=== PATIENT | male | born 1980 | race Caucasian/White ===

== ENCOUNTER 2019-06-03 15:58 | Inpatient (IN) | payer SELFPAY ==
[~2019-06-03] VITALS: Ht 193 cm; Wt 79.4 kg
[~2019-06-03 15:58] MED LIST: ASP81TEC PO; IBP600T1 PO; MINO50CA2 PO; OMG1KC PO; PNT40TEC PO; SERT25TA PO; SULF1TAB38 PO; TRAM50TA2 PO
--- NOTE | 2019-06-03 16:33 | NUR ---
first call to bring patient back at this time. pt not in waiting room.
[2019-06-03 16:56] LABS: BASOPHILS # (AUTO) 0.1 10^3/uL (0.0-0.1); BASOPHILS % (AUTO) 1 % (0-10); EOSINOPHILS # (AUTO) 0.1 10^3/uL (0.0-0.3); EOSINOPHILS % (AUTO) 1 % (0-10); HEMATOCRIT 47 % (40-54); HEMOGLOBIN 16.8 G/DL (13.3-17.7); LYMPHOCYTES # (AUTO) 1.3 X 10^3 (1.0-4.0); LYMPHOCYTES % (AUTO) 15 % (12-44); MEAN CORPUSCULAR HEMOGLOBIN 30 PG (25-34); MEAN CORPUSCULAR HGB CONC 36 G/DL (32-36); MEAN CORPUSCULAR VOLUME 83 FL (80-99); MEAN PLATELET VOLUME 13.9 FL (7.4-10.4); MONOCYTES # (AUTO) 0.5 X 10^3 (0.0-1.0); MONOCYTES % (AUTO) 5 % (0-12); NEUTROPHILS # (AUTO) 6.8 X 10^3 (1.8-7.8); NEUTROPHILS % (AUTO) 78 % (42-75); PLATELET COUNT 221 10^3/uL (130-400); RED CELL DISTRIBUTION WIDTH 12.9 % (10.0-14.5); WHITE BLOOD COUNT 8.7 10^3/uL (4.3-11.0)
[2019-06-03 17:13] LABS: ALANINE AMINOTRANSFERASE 25 U/L (0-55); ALBUMIN 4.7 GM/DL (3.2-4.5); ALKALINE PHOSPHATASE 128 U/L (40-136); BILIRUBIN,TOTAL 0.8 MG/DL (0.1-1.0); BUN/CREATININE RATIO 7; CALCIUM 9.9 MG/DL (8.5-10.1); CARBON DIOXIDE 24 MMOL/L (21-32); CHLORIDE 81 MMOL/L (98-107); CREATININE SERUM 1.64 MG/DL (0.60-1.30); GFR ESTIMATED 48; POTASSIUM 4.6 MMOL/L (3.6-5.0); TOTAL PROTEIN 8.2 GM/DL (6.4-8.2)
[2019-06-03 17:30] LABS: SODIUM 119 MMOL/L (135-145)
--- NOTE | 2019-06-03 17:30 | ED General ---
General Chief Complaint: Glucose Problems Stated Complaint: DIABETIC ISSUES Nursing Triage Note: bisi had his diabetic medication in 2 weeks bc he just moved here and his sugars are all out of wack and "he can't function". His vision is blurry, he is nauseated, and losing weight rapidly. Pt is currently homeless Nursing Sepsis Screen: No Definite Risk Source of Information: Patient Exam Limitations: No Limitations History of Present Illness Date Seen by Provider: Jun 03, 2019 Time Seen by Provider: 17:27 Initial Comments This 39-year-old white male presents with a need for his diabetic medication. Patient is homeless and has been out of his Levemir and his metformin for 2 weeks. Patient states that he has had elevated blood sugars. Reports blurry vision and rapid weight loss associated nausea. Allergies and Home Medications Allergies Uncoded Allergies: BEE STING (Allergy, 07/29/13) Home Medications Aspirin 81 Mg Tabec, 81 MG PO DAILY, (Reported) Minocycline Hcl 50 Mg Capsule, 100 MG PO BID Prescribed by: MORGAN GARZA on 11/23/13 1448 [place] 3 Polyunsat Fatty Acids 1,000 Mg Cap, 3,000 MG PO DAILY, (Reported) Tramadol Hcl 50 Mg Tablet, 50 MG PO Q4H PRN for PAIN Prescribed by: MORGAN GARZA on 11/23/13 1448 Trimethoprim/Sulfamethoxazole 1 Ea Tablet, 1 EA PO BID FOR INFECTION Prescribed by: MORGAN GARZA on 11/23/13 1448 Patient Home Medication List Home Medication List Reviewed: Yes Review of Systems Review of Systems Constitutional: No chills, No fever; malaise, weight loss EENTM: blurred vision Respiratory: No cough, No short of breath Cardiovascular: No chest pain Gastrointestinal: No diarrhea; nausea Genitourinary: No dysuria, No frequency Musculoskeletal: No back pain Skin: No change in color, No rash Psychiatric/Neurological: Other (homeless) Hematologic/Lymphatic: No Symptoms Reported Immunological/Allergic: no symptoms reported Past Fwyxhdd-Ppjkit-Tnwrbi Hx Past Med/Social Hx: Reviewed Nursing Past Med/Soc Hx Patient Social History Alcohol Use: Denies Use Recreational Drug Use: No Smoking Status: Current Everyday Smoker Recent Foreign Travel: No Contact w/Someone Who Travel: No Recent Infectious Disease Expo: Yes Recent Hopitalizations: No Immunizations Up To Date Tetanus Booster (TDap): Less than 5yrs PED Vaccines UTD: Yes Date of Influenza Vaccine: Jul 27, 2013 Past Medical History Surgeries: Yes (ear tubes as a child) Respiratory: Yes (pneumonitis as a baby) Cardiac: Yes (elevated troponin with clean cath) Neurological: Yes Reproductive Disorders: No Gastrointestinal: No Musculoskeletal: Yes (fractured elbow) Fractures Endocrine: No Chronic Ear Infection Loss of Vision: Denies Hearing Impairment: Denies Cancer: No Psychosocial: Yes (OCD) Anxiety Integumentary: Yes (history of multiple abscesses of the lower abdomen) Blood Disorders: No Family Medical History No Pertinent Family Hx Physical Exam Vital Signs Vital Signs - First Documented 06/03/19 16:03 Temp 96.4 Pulse 99 Resp 16 B/P (MAP) 130/92 (105) O2 Delivery Room Air Capillary Refill : Less Than 3 Seconds Height, Weight, BMI Height: 6'4.00" Weight: 175lbs. 0.1oz. 79.098950bs; 27.38 BMI Method:Stated General Appearance: No Apparent Distress, Thin HEENT: Normal ENT Inspection Neck: Normal Inspection Respiratory: Lungs Clear Cardiovascular: Regular Rate, Rhythm Gastrointestinal: Normal Bowel Sounds Back: Normal Inspection Extremity: Normal Inspection, Normal Range of Motion, Non Tender Neurologic/Psychiatric: Alert, Oriented x3, No Motor/Sensory Deficits, Normal Mood/Affect Skin: Normal Color, Warm/Dry Progress/Results/Core Measures Suspected Sepsis Recent Fever Within 48 Hours: No Infection Criteria Present: None New/Unexplained Altered Menta: No Sepsis Screen: No Definite Risk SIRS Temperature:96.4 Pulse: 99 Respiratory Rate: 16 Laboratory Tests 06/03/19 16:45: White Blood Count 8.7 Blood Pressure 130 /92 Mean: 105 Laboratory Tests 06/03/19 16:45: Creatinine 1.64H, Platelet Count 221, Total Bilirubin 0.8 Results/Orders Lab Results Laboratory Tests Test 06/03/19 16:42 06/03/19 16:45 06/03/19 17:34 Range/Units Glucometer > 600 *H > 600 *H 70-110 MG/DL White Blood Count 8.7 4.3-11.0 10^3/uL Red Blood Count 5.64 4.35-5.85 10^6/uL Hemoglobin 16.8 13.3-17.7 G/DL Hematocrit 47 40-54 % Mean Corpuscular Volume 83 80-99 FL Mean Corpuscular Hemoglobin 30 25-34 PG Mean Corpuscular Hemoglobin Concent 36 32-36 G/DL Red Cell Distribution Width 12.9 10.0-14.5 % Platelet Count 221 130-400 10^3/uL Mean Platelet Volume 13.9 H 7.4-10.4 FL Neutrophils (%) (Auto) 78 H 42-75 % Lymphocytes (%) (Auto) 15 12-44 % Monocytes (%) (Auto) 5 0-12 % Eosinophils (%) (Auto) 1 0-10 % Basophils (%) (Auto) 1 0-10 % Neutrophils # (Auto) 6.8 1.8-7.8 X 10^3 Lymphocytes # (Auto) 1.3 1.0-4.0 X 10^3 Monocytes # (Auto) 0.5 0.0-1.0 X 10^3 Eosinophils # (Auto) 0.1 0.0-0.3 10^3/uL Basophils # (Auto) 0.1 0.0-0.1 10^3/uL Sodium Level 119 *L 135-145 MMOL/L Potassium Level 4.6 3.6-5.0 MMOL/L Chloride Level 81 L 98-107 MMOL/L Carbon Dioxide Level 24 21-32 MMOL/L Anion Gap 14 5-14 MMOL/L Blood Urea Nitrogen 12 7-18 MG/DL Creatinine 1.64 H 0.60-1.30 MG/DL Estimat Glomerular Filtration Rate 48 BUN/Creatinine Ratio 7 Glucose Level 1112 *H 70-105 MG/DL Calcium Level 9.9 8.5-10.1 MG/DL Corrected Calcium 8.5-10.1 MG/DL Total Bilirubin 0.8 0.1-1.0 MG/DL Aspartate Amino Transf (AST/SGOT) 15 5-34 U/L Alanine Aminotransferase (ALT/SGPT) 25 0-55 U/L Alkaline Phosphatase 128 40-136 U/L Total Protein 8.2 6.4-8.2 GM/DL Albumin 4.7 H 3.2-4.5 GM/DL My Orders Orders - SAM MCARTHUR MD Iv Heplock-Insert (Order) (06/03/19 16:17) Cbc With Automated Diff (06/03/19 16:17) Comprehensive Metabolic Panel (06/03/19 16:17) Glucose (06/03/19 16:17) Ns Iv 1000 Ml (Sodium Chloride 0.9%) (06/03/19 17:45) Insulin (Regular) Human (Humulin R (Per (06/03/19 17:45) Arterial Blood Gas (06/03/19 17:44) Vital Signs/I&O 06/03/19 16:03 Temp 96.4 Pulse 99 Resp 16 B/P (MAP) 130/92 (105) O2 Delivery Room Air Capillary Refill : Less Than 3 Seconds Blood Pressure Mean: 105 Progress Note : Time: 17:48 Progress Note The patient's glucose was greater than thousand. His sodium was 119. His potassium was normal. Patient was placed on a insulin drip and was sent to the ICU after telephone consultation with Dr. Lewis. Departure Communication (Admissions) Time/Spoke to Admitting Phy: 17:50 Dr. Lewis Impression Primary Impression: Diabetic ketoacidosis Qualified Codes: E13.10 - Other specified diabetes mellitus with ketoacidosis without coma Disposition: ADMITTED INPATIENT Condition: Improved Admissions Decision to Admit Reason: Admit from ER (General) Decision to Admit/Date: Jun 03, 2019 Time/Decision to Admit Time: 17:50 Departure-Patient Inst. Referrals: [facility] (PCP/Family) Primary Care Physician SAM MCARTHUR MD Jun 03, 2019 17:30
[2019-06-03 17:39] LABS: GLUCOSE 1112 MG/DL (70-105)
[2019-06-03] MEDS ORDERED: inSUlin (REGULAR) HUMAN 1 UNIT/0.01 ML (CHARGE PER UNIT) SC ONE (17:45)
[2019-06-03] MEDS: NS IV 1000 ML 1,000 ML IV SCH ×2 (17:50→19:56)
--- NOTE | 2019-06-03 17:50 | NUR ---
RT called to room for ABG draw, pt refusing at this time Dr Wood informed of pt refusal and no further orders received.
--- NOTE | 2019-06-03 17:53 | NUR ---
PT DRANK SPRITE WITHOUT NURSING KNOWLEDGE.
--- NOTE | 2019-06-03 17:54 | NUR ---
PT REFUSED ABG DRAW.
[2019-06-03 18:36] VITALS: BP 130/92
[2019-06-03] MEDS ORDERED: ONDANSETRON 4 MG/2 ML (SDV) Z0FRAN IVP PRN (19:15)
[2019-06-03] MEDS ORDERED: ACETAMINOPHEN 325 MG TABLET PO PRN (19:15)
[2019-06-03] MEDS ORDERED: NS IV 1000 ML 1,000 ML IV SCH ×2 (19:15→20:00)
[2019-06-03] MEDS ORDERED: NORMAL SALINE 250 ML ONE (19:28)
[2019-06-03] MEDS ORDERED: inSUlin (REGULAR) HUMAN 1 UNIT/0.01 ML (CHARGE PER UNIT) ONE (19:29)
[2019-06-03] MEDS ORDERED: POTASSIUM CL 10MEQ/50ML IVPB X 4 (TOTAL 40 MEQ) IV SCH (19:30)
[2019-06-03] MEDS ORDERED: POTASSIUM CL 10MEQ/50ML IVPB 50 ML IV SCH (19:30)
[2019-06-03] MEDS ORDERED: DEXTROSE 10% IV SOLUTION 1,000 ML IV SCH (19:30)
[2019-06-03] MEDS ORDERED: 1/2 NS IV SOLUTION 1,000 ML IV SCH (19:30)
[2019-06-03] MEDS ORDERED: REGULAR inSUlin DRIP 250 UNITS/NS 250 ML IV SCH ×2 (19:30)
[2019-06-03] MEDS ORDERED: NS IV 1000 ML X 1 WIDE OPEN IV ONE (19:30)
[2019-06-03] MEDS ORDERED: D5 1/2 NS IV 1,000 ML IV SCH (19:30)
[2019-06-03 19:38] LABS: HEMOGLOBIN 16.3 G/DL (13.3-17.7); MEAN PLATELET VOLUME 13.5 FL (7.4-10.4); RED CELL DISTRIBUTION WIDTH 12.6 % (10.0-14.5); WHITE BLOOD COUNT 8.2 10^3/uL (4.3-11.0)
--- NOTE | 2019-06-03 20:00 | NUR ---
pt wanting to leave AMA at this time. This RN and Justyna RN explained the benefits and risk of staying vs. leaving. Pt adamant on leaving. AMA paperwork signed. IV x2 taken out, cath tips x2 in place. Dr. Lewis notified. Pt gathered belonging and exited ICU at 2014
--- OUTSIDE RECORDS SUMMARY | 2019-06-04 00:45 | XMS REPORT ---
Author Author BILL FLYNN [facility] Address [address] [place] [address] Care Team Providers Care Instrument Adjuster Name Role Phone BILL FLYNN Unavailable PROBLEMS Type Condition ICD9-CM Code CAM21-IW Code Onset Dates Condition Status SNOMED Code Problem Counseling on substance use and abuse V65.42 Active 221708840 Problem Family history of ischemic heart disease V17.3 Active 514702169 Problem Encounter for change or removal of surgical wound dressing V58.31 Active 34763786 Problem Unspecified voice disturbance 784.40 Active 68358671 Problem Other abnormal glucose 790.29 Active 292380138 Problem Pain in joint, pelvic region and thigh 719.45 Active 501597428 Problem Other malaise and fatigue 780.79 Active 647580132 Problem Depressive disorder, not elsewhere classified 311 Active 23133056 Problem Nondependent tobacco use disorder 305.1 Active 525938884 Problem Nondependent alcohol abuse, unspecified drunkenness 305.00 Active 039097282 Problem Mood disorder F39 Active 86397989 Problem Coronary atherosclerosis of unspecified type of vessel, [place] or graft 414.00 Active 609530096 Problem Uncontrolled type 2 diabetes mellitus with hyperglycemia E11.65 Active 505249247 Problem Cellulitis and abscess of unspecified site 682.9 Active 415239835 Problem Obsessive-compulsive disorders 300.3 Active 360128515 Problem Anxiety state, unspecified 300.00 Active 443778469 Problem Obesity, unspecified 278.00 Active 650078629 Problem Other and unspecified hyperlipidemia 272.4 Active 02277155 ALLERGIES No Information ENCOUNTERS Encounter Location Date Diagnosis [facility] [id number] [address] Jul, [facility] [address] [facility] [id number] [place] [address] Jul, [facility] [address] [address] 03 Jul, 2018 [facility] [id number] [place] [address] 28 Jun, 2018 Uncontrolled type 2 diabetes mellitus with hyperglycemia E11.65 [facility] [id number] [place] [address] 28 Jun, 2018 Uncontrolled type 2 diabetes mellitus with hyperglycemia E11.65 [facility] [id number] [place] [address] 27 Jun, 2018 [facility] [id number] [place] [id number] 25 Jun, 2018 Encounter for dental examination and cleaning without abnormal findings Z01.20 [facility] [id number] [place] [address] 18 Jun, 2018 [facility] [id number] [place] [address] 14 Jun, 2018 Uncontrolled type 2 diabetes mellitus with hyperglycemia E11.65 [facility] [id number] [place] [address] 18 Oct, 2017 [facility] [id number] [place] [address] 02 Oct, 2017 Mood disorder F39 [facility] [id number] [place] [id number] Sep, Dental examination Z01.20 [facility] [address] [address] Aug, Tooth infection K04.7 [facility] [id number] [place] [address] Aug, Mood disorder F39 [facility] [id number] [place] [address] May, Mood disorder F39 [facility] [address] [id number] 10 Oct, 2016 Mood disorder F39 [facility] [address] [id number] [place] [address] February, Chest pain, unspecified type R07.9 and MRSA (methicillin resistant staph aureus) culture positive Z22.322 [facility] [address] [id number] [place] [address] 14 Jan, 2015 [facility] [address] [id number] [place] [address] Jan, [facility] [address] [id number] [place] [address] Dec, [facility] [address] [id number] [place] [address] Dec, [facility] [address] [id number] [place] [address] Dec, [facility] [address] [id number] [place] [address] Dec, [facility] [address] [id number] [place] [address] May, [facility] [address] [id number] [place] [address] May, [facility] [address] [id number] [place] [address] Apr, [facility] [address] [id number] [place] [address] Dec, [facility] [address] [id number] [place] [address] Dec, [facility] [address] [id number] [place] [address] Dec, [facility] [address] [id number] [place] [address] Dec, [facility] [address] [id number] [place] [address] Dec, [facility] [place] [facility] [address] [id number] [place] [address] Dec, [facility] [place] [facility] [address] [id number] [place] [address] 24 Dec, 2013 [facility] [place] [facility] [address] [id number] [place] [address] 24 Dec, 2013 [facility] [place] [facility] [address] [id number] [place] [address] Dec, [facility] [place] [facility] [address] [id number] [place] [address] Dec, [facility] [place] [facility] [address] [id number] [place] [address] Dec, [facility] [place] [facility] [address] [facility] [id number] [place] [address] Dec, [facility] [place] [facility] [address] [id number] [place] [address] Dec, [facility] [place] [facility] [address] [id number] [place] [address] Dec, [facility] [place] [facility] [address] [id number] [place] [address] Nov, [facility] [place] [facility] [address] [id number] [place] [address] Nov, [facility] [place] [facility] [address] [id number] [place] [address] Nov, [facility] [place] [facility] [address] [id number] [place] [address] Nov, [facility] [place] [facility] [address] [id number] [place] [address] Nov, [facility] [place] [facility] [address] [id number] [place] [address] Nov, [facility] [place] [facility] [address] [id number] [place] [address] Oct, [facility] [address] [id number] [place] [address] Oct, [facility] [place] [facility] [address] [id number] [place] [address] Oct, [facility] [place] [facility] [address] [id number] [place] [address] Oct, [facility] [place] [facility] [address] [id number] [place] [address] Oct, [facility] [address] [id number] [place] [address] Oct, [facility] [place] [facility] [address] [id number] [place] [address] Sep, [facility] [address] [facility] [id number] [place] [address] Sep, [facility] [place] [facility] [address] [id number] [place] [address] Sep, [facility] [place] [facility] [address] [id number] [place] [address] Sep, [facility] [place] [facility] [address] [facility] [id number] [place] [address] Sep, [facility] [place] [facility] [address] [id number] [place] [address] Sep, [facility] [place] [facility] [address] [id number] [place] [address] Sep, [facility] [place] [facility] [address] [id number] [place] [address] Sep, [facility] [place] [facility] [address] [id number] [place] [address] Sep, [facility] [place] [facility] [address] [facility] [id number] [place] [address] Aug, [facility] [place] [facility] [address] [id number] [place] [address] 21 Aug, 2013 [facility] [place] [facility] [address] [id number] [place] [address] 18 Aug, 2013 [facility] [place] [facility] [address] [id number] [place] [address] 14 Aug, 2013 [facility] [place] [facility] [address] [id number] [place] [address] 14 Aug, 2013 [facility] [place] [facility] [address] [id number] [place] [address] 14 Aug, 2013 [facility] [place] [facility] [address] [id number] [place] [address] 14 Aug, 2013 [facility] [place] [facility] [address] [id number] [place] [address] 18 Jul, 2013 [facility] [place] [facility] [address] [id number] [place] [address] 18 Jul, 2013 [facility] [place] [facility] [address] [id number] [place] [address] 17 Jul, 2013 [facility] [place] [facility] [address] [id number] [place] [address] 17 Jul, 2013 [facility] [place] [facility] [address] [id number] [place] [address] 16 Jul, 2013 [facility] [place] [facility] [address] [id number] [place] [address] 26 Jun, 2013 [facility] [place] [facility] [address] [id number] [place] [address] 26 Jun, 2013 [facility] [place] [facility] [address] [id number] [place] [address] 25 Jun, 2013 [facility] [place] [facility] [address] [id number] [place] [address] 24 Jun, 2013 [facility] [place] [facility] [address] [id number] [place] [address] Apr, [facility] [address] [facility] [id number] [place] [address] Mar, [facility] [address] [facility] [id number] [place] [address] Mar, [facility] [address] [facility] [id number] [place] [address] Jan, IMMUNIZATIONS No Known Immunizations SOCIAL HISTORY Never Assessed REASON FOR VISIT PLAN OF CARE VITAL SIGNS MEDICATIONS Unknown Medications RESULTS No Results PROCEDURES No Known procedures INSTRUCTIONS MEDICATIONS ADMINISTERED No Known Medications MEDICAL (GENERAL) HISTORY Type Description Date Medical History heart attack 2014 Medical History history of infective endocarditis Medical History heart murmur Medical History idiopathic cardiomypathy Medical History Undergoing treatment for substance addiction Surgical History Heart cath at [facility] by Dr Barahona 2014
--- OUTSIDE RECORDS SUMMARY | 2019-06-04 00:45 | XMS REPORT ---
Author Author CHRISTIANNE CASTANEDA [facility] Address [address] [place] [address] Care Team Providers Care Family Manager Name Role Phone CHRISTIANNE CASTANEDA Unavailable PROBLEMS Type Condition ICD9-CM Code JKB28-IZ Code Onset Dates Condition Status SNOMED Code Problem Counseling on substance use and abuse V65.42 Active 781996763 Problem Family history of ischemic heart disease V17.3 Active 217514857 Problem Encounter for change or removal of surgical wound dressing V58.31 Active 60051292 Problem Unspecified voice disturbance 784.40 Active 14340244 Problem Other abnormal glucose 790.29 Active 313451150 Problem Pain in joint, pelvic region and thigh 719.45 Active 045000415 Problem Other malaise and fatigue 780.79 Active 882361981 Problem Depressive disorder, not elsewhere classified 311 Active 66411203 Problem Nondependent tobacco use disorder 305.1 Active 014442726 Problem Nondependent alcohol abuse, unspecified drunkenness 305.00 Active 994673355 Problem Mood disorder F39 Active 11997259 Problem Coronary atherosclerosis of unspecified type of vessel, [place] or graft 414.00 Active 960047613 Problem Uncontrolled type 2 diabetes mellitus with hyperglycemia E11.65 Active 048756882 Problem Cellulitis and abscess of unspecified site 682.9 Active 785091555 Problem Obsessive-compulsive disorders 300.3 Active 903938736 Problem Anxiety state, unspecified 300.00 Active 499585350 Problem Obesity, unspecified 278.00 Active 649025249 Problem Other and unspecified hyperlipidemia 272.4 Active 99440295 ALLERGIES No Information ENCOUNTERS Encounter Location Date Diagnosis [facility] [place] [address] [facility] [id number] [address] Jul, [facility] [place] [address] [facility] [id number] [address] Jul, [facility] [address] [address] 03 Jul, 2018 [facility], [place] [address] [place] [address] 28 Jun, 2018 Uncontrolled type 2 diabetes mellitus with hyperglycemia E11.65 [facility], [place] [address] [address] 28 Jun, 2018 Uncontrolled type 2 diabetes mellitus with hyperglycemia E11.65 [facility] [place] [address] [place] [address] 27 Jun, 2018 [facility] [id number] [place] [id number] 25 Jun, 2018 Encounter for dental examination and cleaning without abnormal findings Z01.20 [facility] [place] [address] [place] [address] 18 Jun, 2018 [facility] [place] [id number] [place] [address] 14 Jun, 2018 Uncontrolled type 2 diabetes mellitus with hyperglycemia E11.65 [facility] [place] [address] [address] 18 Oct, 2017 [facility] [place] [id number] [place] [address] 02 Oct, 2017 Mood disorder F39 [facility] [address] [id number] 15 Sep, 2017 Dental examination Z01.20 [facility], [place] [address] [address] Aug, Tooth infection K04.7 [facility], [place] [address] [place] [address] 07 Aug, 2017 Mood disorder F39 [facility], [place] [address] [address] May, Mood disorder F39 [facility] [address] [place] [id number] 10 Oct, 2016 Mood disorder F39 [facility], [place] [address] [id number] [place] [address] February, Chest pain, unspecified type R07.9 and MRSA (methicillin resistant staph aureus) culture positive Z22.322 [facility], [place] [address] [id number] [place] [address] 14 Jan, 2015 [facility] [place] [address] [id number] [place] [address] Jan, [facility] [place] [address] [id number] [place] [address] Dec, [facility] [place] [address] [id number] [place] [address] Dec, [facility] [place] [address] [id number] [place] [address] Dec, [facility] [place] [address] [id number] [place] [address] Dec, [facility] [place] [address] [id number] [place] [address] May, [facility], [place] [address] [id number] [place] [address] May, [facility] [place] [address] [id number] [place] [address] Apr, [facility], [place] [address] [id number] [place] [address] Dec, [facility] [place] [address] [id number] [place] [address] Dec, [facility] [place] [address] [id number] [place] [address] Dec, [facility] [place] [address] [id number] [place] [address] Dec, [facility] [place] [address] [id number] [place] [address] Dec, [facility] [place] [facility] [address] [id number] [place] [address] 25 Dec, 2013 [facility] [place] [facility] [address] [id number] [place] [address] 24 Dec, 2013 [facility] [place] [facility] [address] [id number] [place] [address] 24 Dec, 2013 [facility] [place] [facility] [address] [id number] [place] [address] Dec, [facility] [place] [facility] [address] [id number] [place] [address] 19 Dec, 2013 [facility] [place] [facility] [address] [id number] [place] [address] 14 Dec, 2013 [facility] [place] [facility] [address] [id number] [place] [address] 14 Dec, 2013 [facility] [place] [facility] [address] [id number] [place] [address] Dec, [facility] [place] [facility] [address] [id number] [place] [address] Dec, [facility] [place] [facility] [address] [id number] [place] [address] Nov, [facility] [place] [facility] [address] [id number] [place] [address] Nov, [facility] [place] [facility] [address] [id number] [place] [address] Nov, [facility] [place] [facility] [address] [id number] [place] [address] Nov, [facility] [place] [facility] [address] [id number] [place] [address] Nov, [facility] [place] [facility] [address] [id number] [place] [address] Nov, [facility] [place] [facility] [address] [id number] [place] [address] Oct, [facility] [address] [id number] [place] [address] Oct, [facility] [address] [id number] [place] [address] Oct, [facility] [address] [id number] [place] [address] Oct, [facility] [place] [facility] [address] [id number] [place] [address] Oct, [facility] [address] [id number] [place] [address] Oct, [facility] [address] [id number] [place] [address] Sep, [facility] [address] [id number] [place] [address] Sep, [facility] [address] [id number] [place] [address] Sep, [facility] [address] [id number] [place] [address] Sep, [facility] [place] [facility] [address] [id number] [place] [address] Sep, [facility] [address] [id number] [place] [address] Sep, [facility] [place] [facility] [address] [id number] [place] [address] Sep, [facility] [place] [facility] [address] [id number] [place] [address] Sep, [facility] [place] [facility] [address] [id number] [place] [address] Sep, [facility] [place] [facility] [address] [id number] [place] [address] Aug, [facility] [place] [facility] [address] [id number] [place] [address] 21 Aug, 2013 [facility] [place] [facility] [address] [id number] [place] [address] 18 Aug, 2013 [facility] [place] [facility] [address] [id number] [place] [address] 14 Aug, 2013 [facility] [place] [facility] [address] [id number] [place] [address] 14 Aug, 2013 [facility] [place] [facility] [address] [id number] [place] [address] 14 Aug, 2013 [facility] [place] [facility] [address] [id number] [place] [address] 14 Aug, 2013 [facility] [place] [facility] [address] [id number] [place] [address] 18 Jul, 2013 [facility] [place] [facility] [address] [id number] [place] [address] 18 Jul, 2013 [facility] [place] [facility] [address] [id number] [place] [address] 17 Jul, 2013 [facility] [place] [facility] [address] [id number] [place] [address] 17 Jul, 2013 [facility] [place] [facility] [address] [id number] [place] [address] 16 Jul, 2013 [facility] [place] [facility] [address] [id number] [place] [address] 26 Jun, 2013 [facility] [place] [facility] [address] [id number] [place] [address] 26 Jun, 2013 [facility] [place] [facility] [address] [id number] [place] [address] 25 Jun, 2013 [facility] [place] [facility] [address] [id number] [place] [address] 24 Jun, 2013 [facility] [place] [facility] [address] [id number] [place] [address] Apr, [facility] [place] [address] [facility] [id number] [place] [address] Mar, [facility] [place] [address] [facility] [id number] [place] [address] Mar, [facility] [place] [address] [facility] [id number] [place] [address] Jan, IMMUNIZATIONS No Known Immunizations SOCIAL HISTORY [...] substance addiction Surgical History Heart cath at [facility] by Dr Barahona 2014
--- OUTSIDE RECORDS SUMMARY | 2019-06-04 00:46 | XMS REPORT ---
Author Author Migration, Doctor Organization [facility] Address Unknown Phone Unavailable Care Team Providers Care Pulp Mill Operator Name Role Phone Migration, Doctor Unavailable Unavailable PROBLEMS Type Condition ICD9-CM Code FTM54-QH Code Onset Dates Condition Status SNOMED Code Problem Counseling on substance use and abuse V65.42 Active 947266696 Problem Family history of ischemic heart disease V17.3 Active 394986998 Problem Encounter for change or removal of surgical wound dressing V58.31 Active 88441106 Problem Unspecified voice disturbance 784.40 Active 10878445 Problem Other abnormal glucose 790.29 Active 158888542 Problem Pain in joint, pelvic region and thigh 719.45 Active 346671753 Problem Other malaise and fatigue 780.79 Active 098626916 Problem Depressive disorder, not elsewhere classified 311 Active 61049068 Problem Nondependent tobacco use disorder 305.1 Active 084044854 Problem Nondependent alcohol abuse, unspecified drunkenness 305.00 Active 006131419 Problem Mood disorder F39 Active 58393482 Problem Coronary atherosclerosis of unspecified type of vessel, [place] or graft 414.00 Active 130560658 Problem Uncontrolled type 2 diabetes mellitus with hyperglycemia E11.65 Active 132549493 Problem Cellulitis and abscess of unspecified site 682.9 Active 298424239 Problem Obsessive-compulsive disorders 300.3 Active 885069721 Problem Anxiety state, unspecified 300.00 Active 798737025 Problem Obesity, unspecified 278.00 Active 905523806 Problem Other and unspecified hyperlipidemia 272.4 Active 55134221 ALLERGIES No Information ENCOUNTERS Encounter Location Date Diagnosis [facility] [address] [address] Jul, [facility] [address] [address] Jul, [facility] [id number] [address] Jul, [facility] [address] [address] 28 Jun, 2018 Uncontrolled type 2 diabetes mellitus with hyperglycemia E11.65 [facility] [id number] [place] [address] 28 Jun, 2018 Uncontrolled type 2 diabetes mellitus with hyperglycemia E11.65 [facility] [address] [place] [address] Jun, [facility] [id number] [place] [id number] Jun, Encounter for dental examination and cleaning without abnormal findings Z01.20 [facility] [id number] [place] [address] 18 Jun, 2018 [facility] [id number] [place] [address] 14 Jun, 2018 Uncontrolled type 2 diabetes mellitus with hyperglycemia E11.65 [facility] [id number] [place] [address] Oct, [facility] [address] [place] [address] Oct, Mood disorder F39 [facility] [address] [place] [id number] Sep, Dental examination Z01.20 [facility] [address] [place] [address] Aug, Tooth infection K04.7 [facility] [address] [place] [address] 07 Aug, 2017 Mood disorder F39 [facility] [address] [place] [address] May, Mood disorder F39 [facility] [address] [place] [id number] 10 Oct, 2016 Mood disorder F39 [facility] [address] [address] February, Chest pain, unspecified type R07.9 and MRSA (methicillin resistant staph aureus) culture positive Z22.322 [facility] [address] [id number] [place] [address] 14 Jan, 2015 [facility] [address] [id number] [place] [address] Jan, [facility] [address] [id number] [place] [address] Dec, [facility] [address] [id number] [place] [address] Dec, [facility] [address] [id number] [place] [address] Dec, [facility] [address] [id number] [place] [address] Dec, [facility] [address] [id number] [place] [address] May, [facility] [address] [id number] [place] [address] May, [facility] [address] [id number] [place] [address] Apr, [facility] [address] [id number] [place] [address] Dec, [facility] [address] [id number] [place] [address] Dec, [facility] [address] [id number] [address] Dec, [facility] [address] [id number] [place] [address] Dec, [facility] [address] [id number] [place] [address] Dec, [facility] [address] [id number] [address] Dec, [facility] [place] [facility] [address] [id number] [place] [address] Dec, [facility] [place] [facility] [address] [id number] [place] [address] 24 Dec, 2013 [facility] [place] [facility] [address] [id number] [place] [address] Dec, [facility] [place] [facility] [address] [id number] [place] [address] Dec, [facility] [place] [facility] [address] [id number] [place] [address] 14 Dec, 2013 [facility] [place] [facility] [address] [id number] [place] [address] 14 Dec, 2013 [facility] [place] [facility] [address] [id number] [place] [address] Dec, [facility] [place] [facility] [address] [id number] [place] [address] Dec, [facility] [place] [facility] [address] [id number] [place] [address] Nov, [facility] [place] [facility] [address] [id number] [place] [address] Nov, [facility] [place] [facility] [address] [id number] [place] [address] Nov, [facility] [place] [facility] [address] [id number] [place] [address] Nov, [facility] [place] [facility] [address] [id number] [place] [address] Nov, [facility] [place] [facility] [address] [id number] [place] [address] Nov, [facility] [place] [facility] [address] [id number] [place] [address] Oct, [facility] [place] [facility] [address] [id number] [place] [address] Oct, [facility] [address] [id number] [place] [address] Oct, [facility] [place] [facility] [address] [id number] [place] [address] Oct, [facility] [address] [id number] [place] [address] Oct, [facility] [place] [facility] [address] [id number] [place] [address] Oct, [facility] [address] [id number] [place] [address] Sep, [facility] [place] [facility] [address] [id number] [place] [address] Sep, [facility] [address] [id number] [place] [address] Sep, [facility] [place] [facility] [address] [id number] [place] [address] Sep, [facility] [address] [id number] [place] [address] Sep, [facility] [address] [id number] [place] [address] Sep, [facility] [place] [facility] [address] [id number] [place] [address] Sep, [facility] [place] [facility] [address] [id number] [place] [address] Sep, [facility] [place] [facility] [address] [id number] [place] [address] Sep, [facility] [place] [facility] [address] [id number] [place] [address] Aug, [facility] [place] [facility] [address] [id number] [place] [address] Aug, [facility] [place] [facility] [address] [id number] [place] [address] 18 Aug, 2013 [facility] [place] [facility] [address] [id number] [place] [address] 14 Aug, 2013 [facility] [place] [facility] [address] [id number] [place] [address] 14 Aug, 2013 [facility] [place] [facility] [address] [id number] [place] [address] 14 Aug, 2013 [facility] [place] [facility] [address] [id number] [place] [address] 14 Aug, 2013 [facility] [place] [facility] [address] [id number] [place] [address] 18 Jul, 2013 [facility] [place] [facility] [address] [id number] [place] [address] 18 Jul, 2013 [facility] [place] [facility] [address] [id number] [place] [address] 17 Jul, 2013 [facility] [place] [facility] [address] [id number] [place] [address] 17 Jul, 2013 [facility] [place] [facility] [address] [id number] [place] [address] 16 Jul, 2013 [facility] [place] [facility] [address] [id number] [place] [address] 26 Jun, 2013 [facility] [place] [facility] [address] [id number] [place] [address] 26 Jun, 2013 [facility] [place] [facility] [address] [id number] [place] [address] 25 Jun, 2013 [facility] [place] [facility] [address] [id number] [place] [address] 24 Jun, 2013 [facility] [place] [facility] [address] [id number] [place] [address] Apr, [facility] [place] [facility] [address] [id number] [place] [address] Mar, [facility] [address] [facility] [id number] [place] [address] Mar, [facility] [address] [facility] [id number] [place] [address] Jan, IMMUNIZATIONS No Known Immunizations SOCIAL HISTORY Never Assessed REASON FOR VISIT [facility]MR-[facility] [place] PLAN OF CARE VITAL SIGNS MEDICATIONS Unknown Medications RESULTS No Results PROCEDURES No Known procedures INSTRUCTIONS MEDICATIONS ADMINISTERED No Known Medications MEDICAL (GENERAL) HISTORY Type Description Date Medical History heart attack 2014 Medical History history of infective endocarditis Medical History heart murmur Medical History idiopathic cardiomypathy Medical History Undergoing treatment for substance addiction Surgical History Heart cath at [facility] by Dr Barahona 2014
--- OUTSIDE RECORDS SUMMARY | 2019-06-04 00:46 | XMS REPORT ---
Author Author Migration, Doctor Organization [facility] Address Unknown Phone Unavailable Care Team Providers Care Administrative Resident Name Role Phone Migration, Doctor Unavailable Unavailable PROBLEMS Type Condition ICD9-CM Code SCY74-KG Code Onset Dates Condition Status SNOMED Code Problem Counseling on substance use and abuse V65.42 Active 444306330 Problem Family history of ischemic heart disease V17.3 Active 671498391 Problem Encounter for change or removal of surgical wound dressing V58.31 Active 09031059 Problem Unspecified voice disturbance 784.40 Active 76931274 Problem Other abnormal glucose 790.29 Active 235740085 Problem Pain in joint, pelvic region and thigh 719.45 Active 778791990 Problem Other malaise and fatigue 780.79 Active 560201385 Problem Depressive disorder, not elsewhere classified 311 Active 77274283 Problem Nondependent tobacco use disorder 305.1 Active 578593389 Problem Nondependent alcohol abuse, unspecified drunkenness 305.00 Active 786298247 Problem Mood disorder F39 Active 81500898 Problem Coronary atherosclerosis of unspecified type of vessel, [place] or graft 414.00 Active 876720480 Problem Uncontrolled type 2 diabetes mellitus with hyperglycemia E11.65 Active 140371756 Problem Cellulitis and abscess of unspecified site 682.9 Active 816614682 Problem Obsessive-compulsive disorders 300.3 Active 414636565 Problem Anxiety state, unspecified 300.00 Active 734920116 Problem Obesity, unspecified 278.00 Active 309929676 Problem Other and unspecified hyperlipidemia 272.4 Active 21098710 ALLERGIES Substance Reaction Event Type Date Status Bee Sting Unknown Non Drug Allergy Jan, Active ENCOUNTERS Encounter Location Date Diagnosis [facility] [address] [facility] [id number] [address] Jul, [facility] [address] [facility] [id number], [place] [address] Jul, [facility] [address] [facility] [id number], [place] [address] Jul, [facility] [address] [address] 28 Jun, 2018 Uncontrolled type 2 diabetes mellitus with hyperglycemia E11.65 [facility] [address] [address] 28 Jun, 2018 Uncontrolled type 2 diabetes mellitus with hyperglycemia E11.65 [facility] [address] [place] [address] 27 Jun, 2018 [facility] [address] [place] [id number] Jun, Encounter for dental examination and cleaning without abnormal findings Z01.20 [facility] [id number] [place] [address] 18 Jun, 2018 [facility] [id number] [place] [address] 14 Jun, 2018 Uncontrolled type 2 diabetes mellitus with hyperglycemia E11.65 [facility] [address] [address] Oct, [facility] [id number] [place] [address] 02 Oct, 2017 Mood disorder F39 [facility] [address] [address] Sep, Dental examination Z01.20 [facility] [address] [place] [address] Aug, Tooth infection K04.7 [facility] [address] [address] 07 Aug, 2017 Mood disorder F39 [facility] [address] [address] May, Mood disorder F39 [facility] [address] [place] [id number] 10 Oct, 2016 Mood disorder F39 [facility] [address] [place] [address] February, Chest pain, unspecified type R07.9 and MRSA (methicillin resistant staph aureus) culture positive Z22.322 [facility] [place] [address] [id number] [place] [address] 14 Jan, 2015 [facility] [place] [address] [id number] [address] Jan, [facility] [place] [address] [id number], [place] [address] Dec, [facility] [place] [address] [id number], [place] [address] Dec, [facility] [place] [address] [id number], [place] [address] Dec, [facility] [place] [address] [id number], [place] [address] Dec, [facility] [place] [address] [id number][place] [address] May, [facility] [address] [id number], [place] [address] May, [facility] [place] [address] [id number], [place] [address] Apr, [facility] [place] [address] [id number], [place] [address] Dec, [facility] [address] [id number] [address] Dec, [facility] [address] [id number], [place] [address] Dec, [facility] [place] [address] [id number], [place] [address] Dec, [facility] [place] [address] [id number] [address] Dec, [facility] [place] [address] [id number] [address] Dec, [facility] [place] [facility] [address] [id number] [place] [address] Dec, [facility] [place] [facility] [address] [id number] [place] [address] 24 Dec, 2013 [facility] [place] [facility] [address] [id number] [place] [address] 19 Dec, 2013 [facility] [place] [facility] [address] [id number] [place] [address] 19 Dec, 2013 [facility] [place] [facility] [address] [id number] [place] [address] 14 Dec, 2013 [facility] [place] [facility] [address] [id number] [place] [address] Dec, [facility] [place] [facility] [address] [facility] [id number] [place] [address] Dec, [facility] [place] [facility] [address] [facility] [id number] [place] [address] Dec, [facility] [place] [facility] [address] [id number] [address] Nov, [facility] [place] [facility] [address] [facility] [id number] [place] [address] Nov, [facility] [place] [facility] [address] [facility] [id number] [place] [address] Nov, [facility] [place] [facility] [address] [facility] [id number] [place] [address] Nov, [facility] [place] [facility] [address] [id number] [place] [address] Nov, [facility] [place] [facility] [address] [facility] [id number] [place] [address] Nov, [facility] [place] [facility] [address] [facility] [id number] [place] [address] Oct, [facility] [place] [facility] [address] [id number] [place] [address] Oct, [facility] [address] [id number] [place] [address] Oct, [facility] [place] [facility] [address] [id number] [place] [address] Oct, [facility] [place] [facility] [address] [id number] [place] [address] Oct, [facility] [address] [id number] [place] [address] Oct, [facility] [place] [facility] [address] [id number] [place] [address] Sep, [facility] [address] [id number] [place] [address] Sep, [facility] [address] [id number] [place] [address] Sep, [facility] [place] [facility] [address] [id number] [place] [address] Sep, [facility] [address] [id number] [place] [address] Sep, [facility] [place] [facility] [address] [id number] [place] [address] Sep, [facility] [place] [facility] [address] [id number], [place] [address] Sep, [facility] [place] [facility] [address] [id number] [place] [address] Sep, [facility] [place] [facility] [address] [id number] [place] [address] Sep, [facility] [place] [facility] [address] [id number] [place] [address] Aug, [facility] [place] [facility] [address] [id number], [place] [address] Aug, [facility] [place] [facility] [address] [id number] [place] [address] 18 Aug, 2013 [facility] [place] [facility] [address] [id number] [place] [address] Aug, [facility] [place] [facility] [address] [id number] [place] [address] Aug, [facility] [place] [facility] [address] [id number] [place] [address] 14 Aug, 2013 [facility] [place] [facility] [address] [id number] [place] [address] Aug, [facility] [place] [facility] [address] [id number] [place] [address] 18 Jul, 2013 [facility] [place] [facility] [address] [id number] [place] [address] 18 Jul, 2013 [facility] [place] [facility] [address] [id number] [place] [address] 17 Jul, 2013 [facility] [place] [facility] [address] [id number] [place] [address] 17 Jul, 2013 [facility] [place] [facility] [address] [id number] [place] [address] 16 Jul, 2013 [facility] [place] [facility] [address] [id number] [address] 26 Jun, 2013 [facility] [place] [facility] [address] [id number] [place] [address] 26 Jun, 2013 [facility] [place] [facility] [address] [id number] [place] [address] 25 Jun, 2013 [facility] [place] [facility] [address] [id number] [place] [address] 24 Jun, 2013 [facility] [place] [facility] [address] [id number] [place] [address] Apr, [facility] [place] [facility] [address] [facility] [id number] [place] [address] Mar, [facility] [address] [facility] [id number] [place] [address] Mar, [facility] [address] [facility] [id number] [place] [address] Jan, IMMUNIZATIONS No Known Immunizations SOCIAL HISTORY Never Assessed REASON FOR VISIT EMR-[facility] [place] PLAN OF CARE VITAL SIGNS MEDICATIONS Medication Instructions Dosage Frequency Start Date End Date Duration Status HydrOXYzine HCl 100 mg 1 Tablet by Oral route 3 times per day for anxiety Nov, Active PredniSONE 10 mg 1 Tablet by Oral route 2 times per day for 5 days Take at 8 am and noon. Do not take after 3 pm Aug, Active metformin 500 mg take 1 tablet by Oral route 2 times per day with morning and evening meals for diabetes, with food Dec, Active Paxil 10 mg 1 tablet by Oral route 2 times per day for 30 days Sep, Active PredniSONE 20 mg 3 tablet by Oral route 1 time per day for 5 day(s) Mar, Active Simvastatin 20 mg 1 tablet by Oral route 1 time per day Dec, Active Lisinopril 20 mg take 1 tablet by Oral route 1 time per day renal protection, b/p Dec, Active RESULTS No Results PROCEDURES No Known procedures INSTRUCTIONS MEDICATIONS ADMINISTERED No Known Medications MEDICAL (GENERAL) HISTORY Type Description Date Medical History heart attack 2014 Medical History history of infective endocarditis Medical History heart murmur Medical History idiopathic cardiomypathy Medical History Undergoing treatment for substance addiction Surgical History Heart cath at [facility] by Dr Barahona 2014
--- OUTSIDE RECORDS SUMMARY | 2019-06-04 00:46 | XMS REPORT ---
Author Author Migration, Doctor Organization [facility] Address Unknown Phone Unavailable Care Team Providers Care Criminal Justice Professor Name Role Phone Migration, Doctor Unavailable Unavailable PROBLEMS Type Condition ICD9-CM Code WEU45-KV Code Onset Dates Condition Status SNOMED Code Problem Counseling on substance use and abuse V65.42 Active 412945962 Problem Family history of ischemic heart disease V17.3 Active 416873101 Problem Encounter for change or removal of surgical wound dressing V58.31 Active 19213653 Problem Unspecified voice disturbance 784.40 Active 31460587 Problem Other abnormal glucose 790.29 Active 811960481 Problem Pain in joint, pelvic region and thigh 719.45 Active 531533701 Problem Other malaise and fatigue 780.79 Active 208610151 Problem Depressive disorder, not elsewhere classified 311 Active 81703589 Problem Nondependent tobacco use disorder 305.1 Active 186372221 Problem Nondependent alcohol abuse, unspecified drunkenness 305.00 Active 260242807 Problem Mood disorder F39 Active 59316660 Problem Coronary atherosclerosis of unspecified type of vessel, [place] or graft 414.00 Active 719567518 Problem Uncontrolled type 2 diabetes mellitus with hyperglycemia E11.65 Active 093763095 Problem Cellulitis and abscess of unspecified site 682.9 Active 694509035 Problem Obsessive-compulsive disorders 300.3 Active 529740246 Problem Anxiety state, unspecified 300.00 Active 256370684 Problem Obesity, unspecified 278.00 Active 913196440 Problem Other and unspecified hyperlipidemia 272.4 Active 26998725 ALLERGIES No Information ENCOUNTERS Encounter Location Date Diagnosis [facility] [address] [address] Jul, [facility] [address] [address] Jul, [facility] [address] [address] Jul, [facility] [address] [address] 28 Jun, 2018 Uncontrolled type 2 diabetes mellitus with hyperglycemia E11.65 [facility] [id number] [place] [address] 28 Jun, 2018 Uncontrolled type 2 diabetes mellitus with hyperglycemia E11.65 [facility] [address] [place] [address] Jun, [facility] [id number] [place] [id number] Jun, Encounter for dental examination and cleaning without abnormal findings Z01.20 [facility] [id number] [place] [address] 18 Jun, 2018 [facility] [id number] [place] [address] 14 Jun, 2018 Uncontrolled type 2 diabetes mellitus with hyperglycemia E11.65 [facility] [id number] [place] [address] Oct, [facility] [address] [place] [address] Oct, Mood disorder F39 [facility] [address] [place] [id number] Sep, Dental examination Z01.20 [facility] [address] [place] [address] Aug, Tooth infection K04.7 [facility] [address] [place] [address] 07 Aug, 2017 Mood disorder F39 [facility] [address] [place] [address] May, Mood disorder F39 [facility] [address] [place] [id number] 10 Oct, 2016 Mood disorder F39 [facility] [address] [address] February, Chest pain, unspecified type R07.9 and MRSA (methicillin resistant staph aureus) culture positive Z22.322 [facility] [address] [id number] [place] [address] 14 Jan, 2015 [facility] [address] [id number] [place] [address] Jan, [facility] [address] [id number] [place] [address] Dec, [facility] [address] [id number] [place] [address] Dec, [facility] [address] [id number] [place] [address] Dec, [facility] [address] [id number] [place] [address] Dec, [facility] [address] [id number] [place] [address] May, [facility] [address] [id number] [place] [address] May, [facility] [address] [id number] [place] [address] Apr, [facility] [address] [id number] [place] [address] Dec, [facility] [address] [id number] [place] [address] Dec, [facility] [address] [id number] [address] Dec, [facility] [address] [id number] [place] [address] Dec, [facility] [address] [id number] [place] [address] Dec, [facility] [address] [id number] [place] [address] Dec, [facility] [place] [facility] [address] [id number] [place] [address] Dec, [facility] [place] [facility] [address] [id number] [place] [address] 24 Dec, 2013 [facility] [place] [facility] [address] [id number] [place] [address] Dec, [facility] [place] [facility] [address] [id number] [place] [address] Dec, [facility] [place] [facility] [address] [id number] [place] [address] 14 Dec, 2013 [facility] [place] [facility] [address] [id number] [place] [address] 14 Dec, 2013 [facility] [place] [facility] [address] [id number] [place] [address] Dec, [facility] [place] [facility] [address] [id number] [place] [address] Dec, [facility] [place] [facility] [address] [id number] [place] [address] Nov, [facility] [place] [facility] [address] [id number] [place] [address] Nov, [facility] [place] [facility] [address] [id number] [place] [address] Nov, [facility] [place] [facility] [address] [id number] [place] [address] Nov, [facility] [place] [facility] [address] [id number] [place] [address] Nov, [facility] [place] [facility] [address] [id number] [place] [address] Nov, [facility] [place] [facility] [address] [id number] [place] [address] Oct, [facility] [place] [facility] [address] [id number] [place] [address] Oct, [facility] [address] [id number] [place] [address] Oct, [facility] [place] [facility] [address] [id number] [place] [address] Oct, [facility] [address] [id number] [place] [address] Oct, [facility] [place] [facility] [address] [id number] [place] [address] Oct, [facility] [address] [id number] [place] [address] Sep, [facility] [place] [facility] [address] [id number] [place] [address] Sep, [facility] [address] [id number] [place] [address] Sep, [facility] [place] [facility] [address] [id number] [place] [address] Sep, [facility] [address] [id number] [place] [address] Sep, [facility] [address] [id number] [place] [address] Sep, [facility] [place] [facility] [address] [id number] [place] [address] Sep, [facility] [place] [facility] [address] [id number] [place] [address] Sep, [facility] [place] [facility] [address] [id number] [place] [address] Sep, [facility] [place] [facility] [address] [id number] [place] [address] Aug, [facility] [place] [facility] [address] [id number] [place] [address] Aug, [facility] [place] [facility] [address] [id number] [place] [address] 18 Aug, 2013 [facility] [place] [facility] [address] [id number] [place] [address] 14 Aug, 2013 [facility] [place] [facility] [address] [id number] [place] [address] 14 Aug, 2013 [facility] [place] [facility] [address] [id number] [place] [address] 14 Aug, 2013 [facility] [place] [facility] [address] [id number] [place] [address] 14 Aug, 2013 [facility] [place] [facility] [address] [id number] [place] [address] 18 Jul, 2013 [facility] [place] [facility] [address] [id number] [place] [address] 18 Jul, 2013 [facility] [place] [facility] [address] [id number] [place] [address] 17 Jul, 2013 [facility] [place] [facility] [address] [id number] [place] [address] 17 Jul, 2013 [facility] [place] [facility] [address] [id number] [place] [address] 16 Jul, 2013 [facility] [place] [facility] [address] [id number] [place] [address] 26 Jun, 2013 [facility] [place] [facility] [address] [id number] [place] [address] 26 Jun, 2013 [facility] [place] [facility] [address] [id number] [place] [address] 25 Jun, 2013 [facility] [place] [facility] [address] [id number] [place] [address] 24 Jun, 2013 [facility] [place] [facility] [address] [id number] [place] [address] Apr, [facility] [place] [facility] [address] [id number] [place] [address] Mar, [facility] [address] [facility] [id number] [place] [address] Mar, [facility] [address] [facility] [id number] [place] [address] Jan, IMMUNIZATIONS No Known Immunizations SOCIAL HISTORY Never Assessed REASON FOR VISIT EMR-[facility] [place] PLAN OF CARE VITAL SIGNS MEDICATIONS Unknown Medications RESULTS No Results PROCEDURES No Known procedures INSTRUCTIONS MEDICATIONS ADMINISTERED No Known Medications MEDICAL (GENERAL) HISTORY Type Description Date Medical History heart attack 2014 Medical History history of infective endocarditis Medical History heart murmur Medical History idiopathic cardiomypathy Medical History Undergoing treatment for substance addiction Surgical History Heart cath at [facility] by Dr Barahona 2014
--- OUTSIDE RECORDS SUMMARY | 2019-06-04 00:46 | XMS REPORT ---
Author Author Migration, Doctor Organization [facility] Address Unknown Phone Unavailable Care Team Providers Care Blunger Name Role Phone Migration, Doctor Unavailable Unavailable PROBLEMS Type Condition ICD9-CM Code [id number] Code Onset Dates Condition Status SNOMED Code Problem Counseling on substance use and abuse V65.42 Active 032074011 Problem Family history of ischemic heart disease V17.3 Active 327569804 Problem Encounter for change or removal of surgical wound dressing V58.31 Active 62565378 Problem Unspecified voice disturbance 784.40 Active 20942162 Problem Other abnormal glucose 790.29 Active 530016054 Problem Pain in joint, pelvic region and thigh 719.45 Active 863187902 Problem Other malaise and fatigue 780.79 Active 820285531 Problem Depressive disorder, not elsewhere classified 311 Active 58334198 Problem Nondependent tobacco use disorder 305.1 Active 938764749 Problem Nondependent alcohol abuse, unspecified drunkenness 305.00 Active 527225455 Problem Mood disorder F39 Active 02038549 Problem Coronary atherosclerosis of unspecified type of vessel, [place] or graft 414.00 Active 020115180 Problem Uncontrolled type 2 diabetes mellitus with hyperglycemia E11.65 Active 220991086 Problem Cellulitis and abscess of unspecified site 682.9 Active 897304057 Problem Obsessive-compulsive disorders 300.3 Active 173952752 Problem Anxiety state, unspecified 300.00 Active 110530883 Problem Obesity, unspecified 278.00 Active 227223557 Problem Other and unspecified hyperlipidemia 272.4 Active 29532452 ALLERGIES No Information ENCOUNTERS Encounter Location Date Diagnosis [facility] [place] [address], [place] [address] Jul, [facility] [place] [address], [place] [address] Jul, [facility] [address], [place] [address] Jul, [facility] [place] [address], [place] [address] 28 Jun, 2018 Uncontrolled type 2 diabetes mellitus with hyperglycemia E11.65 [facility] [place] [id number] [place] [address] 28 Jun, 2018 Uncontrolled type 2 diabetes mellitus with hyperglycemia E11.65 [facility] [place] [address] [place] [address] Jun, [facility] [id number] [place] [id number] Jun, Encounter for dental examination and cleaning without abnormal findings Z01.20 [facility] [place] [id number] [place] [address] 18 Jun, 2018 [facility] [place] [id number] [place] [address] 14 Jun, 2018 Uncontrolled type 2 diabetes mellitus with hyperglycemia E11.65 [facility] [place] [id number] [place] [address] Oct, [facility] [place] [id number] [place] [address] Oct, Mood disorder F39 [facility] [address] [place] [id number] Sep, Dental examination Z01.20 [facility] [place] [address] [place] [address] Aug, Tooth infection K04.7 [facility] [place] [address] [place] [address] 07 Aug, 2017 Mood disorder F39 [facility] [place] [address] [place] [address] May, Mood disorder F39 [facility] [address] [place] [id number] 10 Oct, 2016 Mood disorder F39 [facility] [place] [address] [address] February, Chest pain, unspecified type R07.9 and MRSA (methicillin resistant staph aureus) culture positive Z22.322 [facility] [place] [address] [id number] [place] [address] 14 Jan, 2015 [facility] [address] [id number] [place] [address] Jan, [facility] [place] [address] [id number] [place] [address] Dec, [facility] [place] [address] [id number] [place] [address] Dec, [facility] [place] [address] [id number] [place] [address] Dec, [facility] [place] [address] [id number] [place] [address] Dec, [facility] [place] [address] [id number] [place] [address] May, [facility] [place] [address] [id number] [place] [address] May, [facility] [place] [address] [id number] [place] [address] Apr, [facility] [place] [address] [id number] [place] [address] Dec, [facility] [place] [address] [id number] [place] [address] Dec, [facility] [place] [address] [id number] [address] Dec, [facility] [place] [address] [id number] [place] [address] Dec, [facility] [place] [address] [id number] [place] [address] Dec, [facility] [place] [address] [id number] [address] Dec, [facility] [place] [facility] [address] [id number] [place] [address] Dec, [facility] [place] [facility] [address] [id number] [place] [address] 24 Dec, 2013 [facility] [place] [facility] [address] [id number] [place] [address] Dec, [facility] [place] [facility] [address] [id number] [place] [address] Dec, [facility] [place] [facility] [address] [id number] [place] [address] 14 Dec, 2013 [facility] [place] [facility] [address] [id number] [place] [address] 14 Dec, 2013 [facility] [place] [facility] [address] [id number] [place] [address] Dec, [facility] [place] [facility] [address] [id number] [place] [address] Dec, [facility] [place] [facility] [address] [id number] [place] [address] Nov, [facility] [place] [facility] [address] [id number] [place] [address] Nov, [facility] [place] [facility] [address] [id number] [place] [address] Nov, [facility] [place] [facility] [address] [id number] [place] [address] Nov, [facility] [place] [facility] [address] [id number] [place] [address] Nov, [facility] [place] [facility] [address] [id number] [place] [address] Nov, [facility] [place] [facility] [address] [id number] [place] [address] Oct, [facility] [place] [facility] [address] [id number] [place] [address] Oct, [facility] [address] [id number] [place] [address] Oct, [facility] [place] [facility] [address] [id number] [place] [address] Oct, [facility] [address] [id number] [place] [address] Oct, [facility] [place] [facility] [address] [id number] [place] [address] Oct, [facility] [address] [id number] [place] [address] Sep, [facility] [place] [facility] [address] [id number] [place] [address] Sep, [facility] [address] [id number] [place] [address] Sep, [facility] [place] [facility] [address] [id number] [place] [address] Sep, [facility] [address] [id number] [place] [address] Sep, [facility] [address] [id number] [place] [address] Sep, [facility] [place] [facility] [address] [id number] [place] [address] Sep, [facility] [place] [facility] [address] [id number] [place] [address] Sep, [facility] [place] [facility] [address] [id number] [place] [address] Sep, [facility] [place] [facility] [address] [id number] [place] [address] Aug, [facility] [place] [facility] [address] [id number] [place] [address] Aug, [facility] [place] [facility] [address] [id number] [place] [address] 18 Aug, 2013 [facility] [place] [facility] [address] [id number] [place] [address] 14 Aug, 2013 [facility] [place] [facility] [address] [id number] [place] [address] 14 Aug, 2013 [facility] [place] [facility] [address] [id number] [place] [address] 14 Aug, 2013 [facility] [place] [facility] [address] [id number] [place] [address] 14 Aug, 2013 [facility] [place] [facility] [address] [id number] [place] [address] 18 Jul, 2013 [facility] [place] [facility] [address] [id number] [place] [address] 18 Jul, 2013 [facility] [place] [facility] [address] [id number] [place] [address] 17 Jul, 2013 [facility] [place] [facility] [address] [id number] [place] [address] 17 Jul, 2013 [facility] [place] [facility] [address] [id number] [place] [address] 16 Jul, 2013 [facility] [place] [facility] [address] [id number] [place] [address] 26 Jun, 2013 [facility] [place] [facility] [address] [id number] [place] [address] 26 Jun, 2013 [facility] [place] [facility] [address] [id number] [place] [address] 25 Jun, 2013 [facility] [place] [facility] [address] [id number] [place] [address] 24 Jun, 2013 [facility] [place] [facility] [address] [id number] [place] [address] Apr, [facility] [place] [facility] [address] [id number] [place] [address] Mar, [facility] [place] [address] [facility] [id number] [place] [address] Mar, [facility] [place] [address] [facility] [id number] [place] [address] Jan, IMMUNIZATIONS No Known Immunizations SOCIAL HISTORY Never Assessed REASON FOR VISIT EMR-[facility] [place] PL[place] OF CARE VITAL SIGNS MEDICATIONS Unknown Medications RESULTS No Results PROCEDURES No Known procedures INSTRUCTIONS MEDICATIONS ADMINISTERED No Known Medications MEDICAL (GENERAL) HISTORY Type Description Date Medical History heart attack 2014 Medical History history of infective endocarditis Medical History heart murmur Medical History idiopathic cardiomypathy Medical History Undergoing treatment for substance addiction Surgical History Heart cath at [facility] by Dr Barahona 2014
--- OUTSIDE RECORDS SUMMARY | 2019-06-04 00:47 | XMS REPORT ---
Author Author MIGNON DUNCAN Organization [facility] Address [address] [place] [address] Care Team Providers Care Truck Switcher Name Role Phone MIGNON DUNCAN Unavailable PROBLEMS Type Condition ICD9-CM Code [id number] Code Onset Dates Condition Status SNOMED Code Problem Depressive disorder, not elsewhere classified 311 Active 20292522 Problem Nondependent alcohol abuse, unspecified drunkenness 305.00 Active 920028690 Problem Nondependent tobacco use disorder 305.1 Active 106412030 Problem Uncontrolled type 2 diabetes mellitus with hyperglycemia E11.65 Active 947966408 Problem Mood disorder F39 Active 06365881 Problem Anxiety state, unspecified 300.00 Active 348972449 Problem Obsessive-compulsive disorders 300.3 Active 182591796 Problem Other and unspecified hyperlipidemia 272.4 Active 76611117 Problem Obesity, unspecified 278.00 Active 319899051 Problem Encounter for change or removal of surgical wound dressing V58.31 Active 56526695 Problem Family history of ischemic heart disease V17.3 Active 172112378 Problem Counseling on substance use and abuse V65.42 Active 896519142 Problem Other malaise and fatigue 780.79 Active 352429114 Problem Pain in joint, pelvic region and thigh 719.45 Active 843749359 Problem Other abnormal glucose 790.29 Active 963883131 Problem Cellulitis and abscess of unspecified site 682.9 Active 605993341 Problem Unspecified voice disturbance 784.40 Active 46869124 Problem Coronary atherosclerosis of unspecified type of vessel, [place] or graft 414.00 Active [id number] ALLERGIES No Information ENCOUNTERS Encounter Location Date Diagnosis [facility] [id number] [address] Jul, [facility] [id number] [address] Jul, [facility] [id number] [address] Jul, [facility] [address] [address] 28 Jun, 2018 Uncontrolled type 2 diabetes mellitus with hyperglycemia E11.65 [facility] [address] [facility] [id number], [place] [address] 28 Jun, 2018 Uncontrolled type 2 diabetes mellitus with hyperglycemia E11.65 [facility] [address] [address] 27 Jun, 2018 [facility] [address] [address] 25 Jun, 2018 Encounter for dental examination and cleaning without abnormal findings Z01.20 [facility] [address] [place] [address] 18 Jun, 2018 [facility] [id number] [place] [address] 14 Jun, 2018 Uncontrolled type 2 diabetes mellitus with hyperglycemia E11.65 [facility] [address] [address] 18 Oct, 2017 [facility] [address] [place] [address] 02 Oct, 2017 Mood disorder F39 [facility] [address] [address] Sep, Dental examination Z01.20 [facility] [address] [place] [address] Aug, Tooth infection K04.7 [facility] [address] [place] [address] Aug, Mood disorder F39 [facility] [address], [place] [address] May, Mood disorder F39 [facility] [address] [place] [id number] 10 Oct, 2016 Mood disorder F39 [facility] [address], [place] [address] February, Chest pain, unspecified type R07.9 and MRSA (methicillin resistant staph aureus) culture positive Z22.322 [facility] [address] [id number] [place] [address] Jan, [facility] [address] [id number], [place] [address] Jan, [facility] [address] [id number], [place] [address] Dec, [facility] [address] [id number] [place] [address] Dec, [facility] [address] [id number], [place] [address] Dec, [facility] [address] [id number], [place] [address] Dec, [facility] [address] [id number], [place] [address] May, [facility] [address] [id number], [place] [address] May, [facility] [address] [id number], [place] [address] Apr, [facility] [address] [id number], [place] [address] Dec, [facility] [address] [id number], [place] [address] Dec, [facility] [address] [id number], [place] [address] Dec, [facility] [address] [id number], [place] [address] Dec, [facility] [address] [id number], [place] [address] Dec, [facility] [address] [id number] [place] [address] 25 Dec, 2013 [facility] [place] [facility] [address] [id number] [place] [address] 24 Dec, 2013 [facility] [place] [facility] [address] [id number] [place] [address] 24 Dec, 2013 [facility] [place] [facility] [address] [id number] [place] [address] 19 Dec, 2013 [facility] [place] [facility] [address] [id number] [place] [address] 19 Dec, 2013 [facility] [place] [facility] [address] [id number] [place] [address] 14 Dec, 2013 [facility] [place] [facility] [address] [id number] [place] [address] 14 Dec, 2013 [facility] [place] [facility] [address] [id number] [place] [address] Dec, [facility] [place] [facility] [address] [id number] [place] [address] 13 Dec, 2013 [facility] [place] [facility] [address] [id number] [place] [address] Nov, [facility] [place] [facility] [address] [facility] [id number] [place] [address] Nov, [facility] [place] [facility] [address] [id number] [place] [address] Nov, [facility] [place] [facility] [address] [id number] [place] [address] Nov, [facility] [place] [facility] [address] [id number] [place] [address] Nov, [facility] [place] [facility] [address] [id number] [place] [address] Nov, [facility] [place] [facility] [address] [id number] [place] [address] Oct, [facility] [address] [id number] [place] [address] Oct, [facility] [place] [facility] [address] [id number] [place] [address] Oct, [facility] [place] [facility] [address] [facility] [id number] [place] [address] Oct, [facility] [place] [facility] [address] [id number] [place] [address] Oct, [facility] [place] [facility] [address] [id number] [place] [address] Oct, [facility] [place] [facility] [address] [id number] [place] [address] Sep, [facility] [place] [facility] [address] [id number] [place] [address] Sep, [facility] [place] [facility] [address] [id number], [place] [address] Sep, [facility] [place] [facility] [address] [id number], [place] [address] Sep, [facility] [place] [facility] [address] [id number], [place] [address] Sep, [facility] [place] [facility] [address] [id number], [place] [address] Sep, [facility] [place] [facility] [address] [id number], [place] [address] Sep, [facility] [place] [facility] [address] [id number], [place] [address] Sep, [facility] [place] [facility] [address] [id number], [place] [address] Sep, [facility] [place] [facility] [address] [id number], [place] [address] Aug, [facility] [place] [facility] [address] [id number] [place] [address] 21 Aug, 2013 [facility] [place] [facility] [address] [id number] [place] [address] 18 Aug, 2013 [facility] [place] [facility] [address] [id number] [place] [address] 14 Aug, 2013 [facility] [place] [facility] [address] [id number] [place] [address] 14 Aug, 2013 [facility] [place] [facility] [address] [id number] [place] [address] 14 Aug, 2013 [facility] [place] [facility] [address] [id number] [place] [address] 14 Aug, 2013 [facility] [place] [facility] [address] [id number] [place] [address] 18 Jul, 2013 [facility] [place] [facility] [address] [id number] [place] [address] 18 Jul, 2013 [facility] [place] [facility] [address] [id number] [place] [address] 17 Jul, 2013 [facility] [place] [facility] [address] [id number] [place] [address] 17 Jul, 2013 [facility] [place] [facility] [address] [id number] [place] [address] 16 Jul, 2013 [facility] [place] [facility] [address] [id number] [place] [address] 26 Jun, 2013 [facility] [place] [facility] [address] [id number] [place] [address] 26 Jun, 2013 [facility] [place] [facility] [address] [id number] [place] [address] 25 Jun, 2013 [facility] [place] [facility] [address] [id number] [place] [address] 24 Jun, 2013 [facility] [place] [facility] [address] [id number] [place] [address] Apr, [facility] [address] [facility] [id number] [place] [address] Mar, [facility] [address] [facility] [id number] [place] [address] Mar, [facility] [address] [facility] [id number] [place] [address] Jan, IMMUNIZATIONS No Known Immunizations SOCIAL HISTORY Never Assessed REASON FOR VISIT Referral PLAN OF CARE VITAL SIGNS MEDICATIONS Unknown Medications RESULTS No Results PROCEDURES No Known procedures INSTRUCTIONS MEDICATIONS ADMINISTERED No Known Medications MEDICAL (GENERAL) HISTORY Type Description Date Medical History heart attack 2014 Medical History history of infective endocarditis Medical History heart murmur Medical History idiopathic cardiomypathy Medical History Undergoing treatment for substance addiction Surgical History Heart cath at [facility] by Dr Barahona 2014
--- OUTSIDE RECORDS SUMMARY | 2019-06-04 00:47 | XMS REPORT ---
Author Author MIGNON DUNCAN Organization [facility], [place] Address [address] [place] [address] Care Team Providers Care University Controller Name Role Phone MIGNON DUNCAN Unavailable PROBLEMS Type Condition ICD9-CM Code SXA52-ZM Code Onset Dates Condition Status SNOMED Code Problem Depressive disorder, not elsewhere classified 311 Active 08004291 Problem Nondependent alcohol abuse, unspecified drunkenness 305.00 Active 045257724 Problem Nondependent tobacco use disorder 305.1 Active 992997114 Problem Uncontrolled type 2 diabetes mellitus with hyperglycemia E11.65 Active 395489413 Problem Mood disorder F39 Active 22484739 Problem Anxiety state, unspecified 300.00 Active 454051115 Problem Obsessive-compulsive disorders 300.3 Active 849327970 Problem Other and unspecified hyperlipidemia 272.4 Active 01714557 Problem Obesity, unspecified 278.00 Active 853969899 Problem Encounter for change or removal of surgical wound dressing V58.31 Active 44523320 Problem Family history of ischemic heart disease V17.3 Active 095661859 Problem Counseling on substance use and abuse V65.42 Active 179251314 Problem Other malaise and fatigue 780.79 Active 716487594 Problem Pain in joint, pelvic region and thigh 719.45 Active 382098883 Problem Other abnormal glucose 790.29 Active 542411499 Problem Cellulitis and abscess of unspecified site 682.9 Active 014221127 Problem Unspecified voice disturbance 784.40 Active 57179109 Problem Coronary atherosclerosis of unspecified type of vessel, [place] or graft 414.00 Active [id number] ALLERGIES No Information ENCOUNTERS Encounter Location Date Diagnosis [facility] [place] [id number], [place] [address] Jul, [facility] [place] [address] [id number], [place] [address] Jul, [facility] [address] [id number], [place] [address] Jul, [facility] [place] [address], [place] [address] 28 Jun, 2018 Uncontrolled type 2 diabetes mellitus with hyperglycemia E11.65 [facility] [place] [address] [facility] [id number], [place] [address] 28 Jun, 2018 Uncontrolled type 2 diabetes mellitus with hyperglycemia E11.65 [facility] [place] [address], [place] [address] 27 Jun, 2018 [facility] [address] [id number] 25 Jun, 2018 Encounter for dental examination and cleaning without abnormal findings Z01.20 [facility] [place] [address] [place] [address] 18 Jun, 2018 [facility] [place] [id number] [place] [address] 14 Jun, 2018 Uncontrolled type 2 diabetes mellitus with hyperglycemia E11.65 [facility] [place] [address], [place] [address] 18 Oct, 2017 [facility] [place] [address] [place] [address] 02 Oct, 2017 Mood disorder F39 [facility] [address] [address] Sep, Dental examination Z01.20 [facility] [place] [address] [place] [address] Aug, Tooth infection K04.7 [facility] [place] [address] [place] [address] Aug, Mood disorder F39 [facility] [place] [address], [place] [address] May, Mood disorder F39 [facility] [address] [place] [id number] 10 Oct, 2016 Mood disorder F39 [facility] [place] [address], [place] [address] February, Chest pain, unspecified type R07.9 and MRSA (methicillin resistant staph aureus) culture positive Z22.322 [facility] [address] [id number] [place] [address] Jan, [facility] [address] [id number], [place] [address] Jan, [facility] [address] [id number], [place] [address] Dec, [facility] [address] [id number] [place] [address] Dec, [facility] [address] [id number], [place] [address] Dec, [facility] [address] [id number], [place] [address] Dec, [facility] [address] [id number], [place] [address] May, [facility] [address] [id number], [place] [address] May, [facility] [address] [id number], [place] [address] Apr, [facility] [address] [id number], [place] [address] Dec, [facility] [address] [id number], [place] [address] Dec, [facility] [address] [id number], [place] [address] Dec, [facility] [address] [id number], [place] [address] Dec, [facility] [address] [id number], [place] [address] Dec, [facility] [address] [id number] [place] [address] 25 Dec, 2013 [facility] [place] [facility] [address] [id number] [place] [address] 24 Dec, 2013 [facility] [place] [facility] [address] [id number] [place] [address] 24 Dec, 2013 [facility] [place] [facility] [address] [id number] [place] [address] 19 Dec, 2013 [facility] [place] [facility] [address] [id number] [place] [address] 19 Dec, 2013 [facility] [place] [facility] [address] [id number] [place] [address] 14 Dec, 2013 [facility] [place] [facility] [address] [id number] [place] [address] 14 Dec, 2013 [facility] [place] [facility] [address] [id number] [place] [address] Dec, [facility] [place] [facility] [address] [id number] [place] [address] 13 Dec, 2013 [facility] [place] [facility] [address] [id number] [place] [address] Nov, [facility] [place] [facility] [address] [facility] [id number] [place] [address] Nov, [facility] [place] [facility] [address] [id number] [place] [address] Nov, [facility] [place] [facility] [address] [id number] [place] [address] Nov, [facility] [place] [facility] [address] [id number] [place] [address] Nov, [facility] [place] [facility] [address] [id number] [place] [address] Nov, [facility] [place] [facility] [address] [id number] [place] [address] Oct, [facility] [address] [id number] [place] [address] Oct, [facility] [place] [facility] [address] [id number] [place] [address] Oct, [facility] [place] [facility] [address] [facility] [id number] [place] [address] Oct, [facility] [place] [facility] [address] [id number] [place] [address] Oct, [facility] [place] [facility] [address] [id number] [place] [address] Oct, [facility] [place] [facility] [address] [id number] [place] [address] Sep, [facility] [place] [facility] [address] [id number] [place] [address] Sep, [facility] [place] [facility] [address] [id number], [place] [address] Sep, [facility] [place] [facility] [address] [id number], [place] [address] Sep, [facility] [place] [facility] [address] [id number], [place] [address] Sep, [facility] [place] [facility] [address] [id number], [place] [address] Sep, [facility] [place] [facility] [address] [id number], [place] [address] Sep, [facility] [place] [facility] [address] [id number], [place] [address] Sep, [facility] [place] [facility] [address] [id number], [place] [address] Sep, [facility] [place] [facility] [address] [id number], [place] [address] Aug, [facility] [place] [facility] [address] [id number] [place] [address] 21 Aug, 2013 [facility] [place] [facility] [address] [id number] [place] [address] 18 Aug, 2013 [facility] [place] [facility] [address] [id number] [place] [address] 14 Aug, 2013 [facility] [place] [facility] [address] [id number] [place] [address] 14 Aug, 2013 [facility] [place] [facility] [address] [id number] [place] [address] 14 Aug, 2013 [facility] [place] [facility] [address] [id number] [place] [address] 14 Aug, 2013 [facility] [place] [facility] [address] [id number] [place] [address] 18 Jul, 2013 [facility] [place] [facility] [address] [id number] [place] [address] 18 Jul, 2013 [facility] [place] [facility] [address] [id number] [place] [address] 17 Jul, 2013 [facility] [place] [facility] [address] [id number] [place] [address] 17 Jul, 2013 [facility] [place] [facility] [address] [id number] [place] [address] 16 Jul, 2013 [facility] [place] [facility] [address] [id number] [place] [address] 26 Jun, 2013 [facility] [place] [facility] [address] [id number] [place] [address] 26 Jun, 2013 [facility] [place] [facility] [address] [id number] [place] [address] 25 Jun, 2013 [facility] [place] [facility] [address] [id number] [place] [address] 24 Jun, 2013 [facility] [place] [facility] [address] [id number] [place] [address] Apr, [facility] [place] [address] [facility] [id number] [place] [address] Mar, [facility] [place] [address] [facility] [id number] [place] [address] Mar, [facility] [place] [address] [facility] [id number] [place] [address] Jan, IMMUNIZATIONS No Known Immunizations SOCIAL HISTORY Never Assessed REASON FOR VISIT Lab Order for Endo PLAN OF CARE VITAL SIGNS MEDICATIONS Unknown Medications RESULTS No Results PROCEDURES No Known procedures INSTRUCTIONS MEDICATIONS ADMINISTERED No Known Medications MEDICAL (GENERAL) HISTORY Type Description Date Medical History heart attack 2014 Medical History history of infective endocarditis Medical History heart murmur Medical History idiopathic cardiomypathy Medical History Undergoing treatment for substance addiction Surgical History Heart cath at [facility] by Dr Barahona 2014
--- OUTSIDE RECORDS SUMMARY | 2019-06-04 00:47 | XMS REPORT ---
Author Author MIGNON DUNCAN Organization [facility] Address [address] [place] [address] Care Team Providers Care Dulser Name Role Phone MIGNON DUNCAN Unavailable PROBLEMS Type Condition ICD9-CM Code MUV75-TP Code Onset Dates Condition Status SNOMED Code Problem Depressive disorder, not elsewhere classified 311 Active 73083262 Problem Nondependent alcohol abuse, unspecified drunkenness 305.00 Active 159815745 Problem Nondependent tobacco use disorder 305.1 Active 508547118 Problem Uncontrolled type 2 diabetes mellitus with hyperglycemia E11.65 Active 983103716 Problem Mood disorder F39 Active 60267625 Problem Anxiety state, unspecified 300.00 Active 068325888 Problem Obsessive-compulsive disorders 300.3 Active 974410496 Problem Other and unspecified hyperlipidemia 272.4 Active 96568018 Problem Obesity, unspecified 278.00 Active 976661098 Problem Encounter for change or removal of surgical wound dressing V58.31 Active 51752036 Problem Family history of ischemic heart disease V17.3 Active 887549347 Problem Counseling on substance use and abuse V65.42 Active 286863200 Problem Other malaise and fatigue 780.79 Active 026302675 Problem Pain in joint, pelvic region and thigh 719.45 Active 189931900 Problem Other abnormal glucose 790.29 Active 342254768 Problem Cellulitis and abscess of unspecified site 682.9 Active 125144936 Problem Unspecified voice disturbance 784.40 Active 83239712 Problem Coronary atherosclerosis of unspecified type of vessel, [place] or graft 414.00 Active 692219240 ALLERGIES No Information ENCOUNTERS Encounter Location Date Diagnosis [facility] [id number] [address] Jul, [facility] [address] [id number] [address] Jul, [facility] [id number] [address] Jul, [facility] [address] [address] 28 Jun, 2018 Uncontrolled type 2 diabetes mellitus with hyperglycemia E11.65 [facility] [address] [facility] [id number] [address] 28 Jun, 2018 Uncontrolled type 2 diabetes mellitus with hyperglycemia E11.65 [facility] [address] [address] 27 Jun, 2018 [facility] [address] [id number] 25 Jun, 2018 Encounter for dental examination and cleaning without abnormal findings Z01.20 [facility] [address] [place] [address] 18 Jun, 2018 [facility] [id number] [place] [address] 14 Jun, 2018 Uncontrolled type 2 diabetes mellitus with hyperglycemia E11.65 [facility] [address] [address] 18 Oct, 2017 [facility] [address] [place] [address] 02 Oct, 2017 Mood disorder F39 [facility] [address] [id number] Sep, Dental examination Z01.20 [facility] [address] [place] [address] Aug, Tooth infection K04.7 [facility] [address] [place] [address] Aug, Mood disorder F39 [facility] [address] [address] May, Mood disorder F39 [facility] [address] [id number] 10 Oct, 2016 Mood disorder F39 [facility] [address] [address] February, Chest pain, unspecified type R07.9 and MRSA (methicillin resistant staph aureus) culture positive Z22.322 [facility] [address] [id number] [place] [address] Jan, [facility] [address] [id number] [address] Jan, [facility] [address] [id number] [address] Dec, [facility] [address] [id number] [place] [address] Dec, [facility] [address] [id number] [address] Dec, [facility] [address] [id number] [address] Dec, [facility] [address] [id number] [address] May, [facility] [address] [id number] [address] May, [facility] [address] [id number] [address] Apr, [facility] [address] [id number] [place] [address] Dec, [facility] [address] [id number] [address] Dec, [facility] [address] [id number] [address] Dec, [facility] [address] [id number] [address] Dec, [facility] [address] [id number] [address] Dec, [facility] [address] [id number] [place] [address] 25 Dec, 2013 [facility] [place] [facility] [address] [id number] [place] [address] 24 Dec, 2013 [facility] [place] [facility] [address] [id number] [place] [address] 24 Dec, 2013 [facility] [place] [facility] [address] [id number] [place] [address] 19 Dec, 2013 [facility] [place] [facility] [address] [id number] [place] [address] 19 Dec, 2013 [facility] [place] [facility] [address] [id number] [place] [address] 14 Dec, 2013 [facility] [place] [facility] [address] [id number] [place] [address] 14 Dec, 2013 [facility] [place] [facility] [address] [id number] [place] [address] Dec, [facility] [place] [facility] [address] [id number] [place] [address] 13 Dec, 2013 [facility] [place] [facility] [address] [id number] [place] [address] Nov, [facility] [place] [facility] [address] [facility] [id number] [place] [address] Nov, [facility] [place] [facility] [address] [id number] [place] [address] Nov, [facility] [place] [facility] [address] [id number] [place] [address] Nov, [facility] [place] [facility] [address] [id number] [place] [address] Nov, [facility] [place] [facility] [address] [id number] [place] [address] Nov, [facility] [place] [facility] [address] [id number] [place] [address] Oct, [facility] [address] [id number] [place] [address] Oct, [facility] [place] [facility] [address] [id number] [place] [address] Oct, [facility] [place] [facility] [address] [facility] [id number] [place] [address] Oct, [facility] [place] [facility] [address] [id number] [place] [address] Oct, [facility] [place] [facility] [address] [id number] [place] [address] Oct, [facility] [place] [facility] [address] [id number] [place] [address] Sep, [facility] [place] [facility] [address] [id number] [place] [address] Sep, [facility] [place] [facility] [address] [id number] [address] Sep, [facility] [place] [facility] [address] [id number] [address] Sep, [facility] [place] [facility] [address] [id number] [address] Sep, [facility] [place] [facility] [address] [id number] [address] Sep, [facility] [place] [facility] [address] [id number] [address] Sep, [facility] [place] [facility] [address] [id number] [address] Sep, [facility] [place] [facility] [address] [id number] [address] Sep, [facility] [place] [facility] [address] [id number] [address] Aug, [facility] [place] [facility] [address] [id number] [place] [address] 21 Aug, 2013 [facility] [place] [facility] [address] [id number] [place] [address] 18 Aug, 2013 [facility] [place] [facility] [address] [id number] [place] [address] 14 Aug, 2013 [facility] [place] [facility] [address] [id number] [place] [address] 14 Aug, 2013 [facility] [place] [facility] [address] [id number] [place] [address] 14 Aug, 2013 [facility] [place] [facility] [address] [id number] [place] [address] 14 Aug, 2013 [facility] [place] [facility] [address] [id number] [place] [address] 18 Jul, 2013 [facility] [place] [facility] [address] [id number] [place] [address] 18 Jul, 2013 [facility] [place] [facility] [address] [id number] [place] [address] 17 Jul, 2013 [facility] [place] [facility] [address] [id number] [place] [address] 17 Jul, 2013 [facility] [place] [facility] [address] [id number] [place] [address] 16 Jul, 2013 [facility] [place] [facility] [address] [id number] [place] [address] 26 Jun, 2013 [facility] [place] [facility] [address] [id number] [place] [address] 26 Jun, 2013 [facility] [place] [facility] [address] [id number] [place] [address] 25 Jun, 2013 [facility] [place] [facility] [address] [id number] [place] [address] 24 Jun, 2013 [facility] [place] [facility] [address] [id number] [place] [address] Apr, [facility] [address] [facility] [id number] [place] [address] Mar, [facility] [address] [facility] [id number] [address] Mar, [facility] [address] [facility] [id number] [place] [address] Jan, IMMUNIZATIONS No Known Immunizations SOCIAL HISTORY Never Assessed REASON FOR VISIT Orders request PLAN OF CARE VITAL SIGNS MEDICATIONS Medication Instructions Dosage Frequency Start Date End Date Duration Status NovoLog 100 UNIT/ML Subcutaneous 3 times a day Inject 20 units with meals 8h 14 Jun, 2018 Active RESULTS No Results PROCEDURES No Known procedures INSTRUCTIONS MEDICATIONS ADMINISTERED No Known Medications MEDICAL (GENERAL) HISTORY Type Description Date Medical History heart attack 2014 Medical History history of infective endocarditis Medical History heart murmur Medical History idiopathic cardiomypathy Medical History Undergoing treatment for substance addiction Surgical History Heart cath at [facility] by Dr Barahona 2014
--- OUTSIDE RECORDS SUMMARY | 2019-06-04 00:47 | XMS REPORT ---
Author Author MIGNON DUNCAN Organization [facility] Address [address] [place] [address] Care Team Providers Care Superintendent Stations Name Role Phone MIGNON DUNCAN Unavailable PROBLEMS Type Condition ICD9-CM Code OII50-RH Code Onset Dates Condition Status SNOMED Code Problem Depressive disorder, not elsewhere classified 311 Active 17095021 Problem Nondependent alcohol abuse, unspecified drunkenness 305.00 Active 303905184 Problem Nondependent tobacco use disorder 305.1 Active 796582728 Problem Uncontrolled type 2 diabetes mellitus with hyperglycemia E11.65 Active 297950583 Problem Mood disorder F39 Active 91186842 Problem Anxiety state, unspecified 300.00 Active 088187793 Problem Obsessive-compulsive disorders 300.3 Active 438000435 Problem Other and unspecified hyperlipidemia 272.4 Active 28002596 Problem Obesity, unspecified 278.00 Active 219044720 Problem Encounter for change or removal of surgical wound dressing V58.31 Active 72842400 Problem Family history of ischemic heart disease V17.3 Active 051738185 Problem Counseling on substance use and abuse V65.42 Active 862859042 Problem Other malaise and fatigue 780.79 Active 087071923 Problem Pain in joint, pelvic region and thigh 719.45 Active 636262420 Problem Other abnormal glucose 790.29 Active 182254202 Problem Cellulitis and abscess of unspecified site 682.9 Active 519315728 Problem Unspecified voice disturbance 784.40 Active 39445545 Problem Coronary atherosclerosis of unspecified type of vessel, [place] or graft 414.00 Active 717907298 ALLERGIES No Information ENCOUNTERS Encounter Location Date Diagnosis [facility] [id number], [place] [address] Jul, [facility] [address] [id number] [address] Jul, [facility] [address] [id number], [place] [address] Jul, [facility] [address] [address] 28 Jun, 2018 Uncontrolled type 2 diabetes mellitus with hyperglycemia E11.65 [facility] [address] [facility] [id number] [address] 28 Jun, 2018 Uncontrolled type 2 diabetes mellitus with hyperglycemia E11.65 [facility] [address] [address] 27 Jun, 2018 [facility] [address] [address] 25 Jun, 2018 Encounter for dental examination and cleaning without abnormal findings Z01.20 [facility] [address] [place] [address] 18 Jun, 2018 [facility] [id number] [place] [address] 14 Jun, 2018 Uncontrolled type 2 diabetes mellitus with hyperglycemia E11.65 [facility] [address], [place] [address] 18 Oct, 2017 [facility] [address] [place] [address] 02 Oct, 2017 Mood disorder F39 [facility] [address] [id number] Sep, Dental examination Z01.20 [facility] [address] [place] [address] Aug, Tooth infection K04.7 [facility] [address] [place] [address] Aug, Mood disorder F39 [facility] [address], [place] [address] May, Mood disorder F39 [facility] [address] [place] [id number] 10 Oct, 2016 Mood disorder F39 [facility] [address], [place] [address] February, Chest pain, unspecified type R07.9 and MRSA (methicillin resistant staph aureus) culture positive Z22.322 [facility] [address] [id number] [place] [address] Jan, [facility] [address] [id number], [place] [address] Jan, [facility] [address] [id number], [place] [address] Dec, [facility] [address] [id number] [place] [address] Dec, [facility] [address] [id number], [place] [address] Dec, [facility] [address] [id number], [place] [address] Dec, [facility] [address] [id number], [place] [address] May, [facility] [address] [id number] [address] May, [facility] [address] [id number] [address] Apr, [facility] [address] [id number], [place] [address] Dec, [facility] [address] [id number], [place] [address] Dec, [facility] [address] [id number], [place] [address] Dec, [facility] [address] [id number], [place] [address] Dec, [facility] [address] [id number], [place] [address] Dec, [facility] [address] [id number] [place] [address] 25 Dec, 2013 [facility] [place] [facility] [address] [id number] [place] [address] 24 Dec, 2013 [facility] [place] [facility] [address] [id number] [place] [address] 24 Dec, 2013 [facility] [place] [facility] [address] [id number] [place] [address] 19 Dec, 2013 [facility] [place] [facility] [address] [id number] [place] [address] 19 Dec, 2013 [facility] [place] [facility] [address] [id number] [place] [address] 14 Dec, 2013 [facility] [place] [facility] [address] [id number] [place] [address] 14 Dec, 2013 [facility] [place] [facility] [address] [id number] [place] [address] Dec, [facility] [place] [facility] [address] [id number] [place] [address] 13 Dec, 2013 [facility] [place] [facility] [address] [id number] [place] [address] Nov, [facility] [place] [facility] [address] [facility] [id number] [place] [address] Nov, [facility] [place] [facility] [address] [id number] [place] [address] Nov, [facility] [place] [facility] [address] [id number] [place] [address] Nov, [facility] [place] [facility] [address] [id number] [place] [address] Nov, [facility] [place] [facility] [address] [id number] [place] [address] Nov, [facility] [place] [facility] [address] [id number] [place] [address] Oct, [facility] [address] [id number] [place] [address] Oct, [facility] [place] [facility] [address] [id number] [place] [address] Oct, [facility] [place] [facility] [address] [facility] [id number] [place] [address] Oct, [facility] [place] [facility] [address] [id number] [place] [address] Oct, [facility] [place] [facility] [address] [id number] [place] [address] Oct, [facility] [place] [facility] [address] [id number] [place] [address] Sep, [facility] [place] [facility] [address] [id number] [place] [address] Sep, [facility] [place] [facility] [address] [id number], [place] [address] Sep, [facility] [place] [facility] [address] [id number], [place] [address] Sep, [facility] [place] [facility] [address] [id number], [place] [address] Sep, [facility] [place] [facility] [address] [id number], [place] [address] Sep, [facility] [place] [facility] [address] [id number][place] [address] Sep, [facility] [place] [facility] [address] [id number], [place] [address] Sep, [facility] [place] [facility] [address] [id number], [place] [address] Sep, [facility] [place] [facility] [address] [id number], [place] [address] Aug, [facility] [place] [facility] [address] [id number] [place] [address] 21 Aug, 2013 [facility] [place] [facility] [address] [id number] [place] [address] 18 Aug, 2013 [facility] [place] [facility] [address] [id number] [place] [address] 14 Aug, 2013 [facility] [place] [facility] [address] [id number] [place] [address] 14 Aug, 2013 [facility] [place] [facility] [address] [id number] [place] [address] 14 Aug, 2013 [facility] [place] [facility] [address] [id number] [place] [address] 14 Aug, 2013 [facility] [place] [facility] [address] [id number] [place] [address] 18 Jul, 2013 [facility] [place] [facility] [address] [id number] [place] [address] 18 Jul, 2013 [facility] [place] [facility] [address] [id number] [place] [address] 17 Jul, 2013 [facility] [place] [facility] [address] [id number] [place] [address] 17 Jul, 2013 [facility] [place] [facility] [address] [id number] [place] [address] 16 Jul, 2013 [facility] [place] [facility] [address] [id number] [place] [address] 26 Jun, 2013 [facility] [place] [facility] [address] [id number] [place] [address] 26 Jun, 2013 [facility] [place] [facility] [address] [id number] [place] [address] 25 Jun, 2013 [facility] [place] [facility] [address] [id number] [place] [address] 24 Jun, 2013 [facility] [place] [facility] [address] [id number] [place] [address] Apr, [facility] [address] [facility] [id number] [place] [address] Mar, [facility] [address] [facility] [id number], [place] [address] Mar, [facility] [address] [facility] [id number] [place] [address] Jan, IMMUNIZATIONS No Known Immunizations SOCIAL HISTORY Never Assessed REASON FOR VISIT Refill request PLAN OF CARE VITAL SIGNS MEDICATIONS Medication Instructions Dosage Frequency Start Date End Date Duration Status Accu-Chek SmartView - In Vitro as directed as directed Jun, 30 days Active RESULTS No Results PROCEDURES No Known procedures INSTRUCTIONS MEDICATIONS ADMINISTERED No Known Medications MEDICAL (GENERAL) HISTORY Type Description Date Medical History heart attack 2014 Medical History history of infective endocarditis Medical History heart murmur Medical History idiopathic cardiomypathy Medical History Undergoing treatment for substance addiction Surgical History Heart cath at [facility] by Dr Barahona 2014
--- OUTSIDE RECORDS SUMMARY | 2019-06-04 00:47 | XMS REPORT ---
Author Author Migration, Doctor Organization [facility] Address Unknown Phone Unavailable Care Team Providers Care Spray Worker Name Role Phone Migration, Doctor Unavailable Unavailable PROBLEMS Type Condition ICD9-CM Code HKG02-MS Code Onset Dates Condition Status SNOMED Code Problem Counseling on substance use and abuse V65.42 Active 216126633 Problem Family history of ischemic heart disease V17.3 Active 853024705 Problem Encounter for change or removal of surgical wound dressing V58.31 Active 04674118 Problem Unspecified voice disturbance 784.40 Active 11207468 Problem Other abnormal glucose 790.29 Active 140562839 Problem Pain in joint, pelvic region and thigh 719.45 Active 874354425 Problem Other malaise and fatigue 780.79 Active 080479419 Problem Depressive disorder, not elsewhere classified 311 Active 59958889 Problem Nondependent tobacco use disorder 305.1 Active 068652258 Problem Nondependent alcohol abuse, unspecified drunkenness 305.00 Active 227092317 Problem Mood disorder F39 Active 58157379 Problem Coronary atherosclerosis of unspecified type of vessel, jackson or graft 414.00 Active 888301101 Problem Uncontrolled type 2 diabetes mellitus with hyperglycemia E11.65 Active 158288589 Problem Cellulitis and abscess of unspecified site 682.9 Active 390322594 Problem Obsessive-compulsive disorders 300.3 Active 094553421 Problem Anxiety state, unspecified 300.00 Active 645457912 Problem Obesity, unspecified 278.00 Active 778866694 Problem Other and unspecified hyperlipidemia 272.4 Active 66969456 ALLERGIES No Information ENCOUNTERS Encounter Location Date Diagnosis [facility] [address], [place] [address] Jul, [facility] [address], [place] [address] Jul, [facility] [address], [place] [address] Jul, [facility] [address], [place] [address] 28 Jun, 2018 Uncontrolled type 2 diabetes mellitus with hyperglycemia E11.65 [facility] [id number] [place] [address] 28 Jun, 2018 Uncontrolled type 2 diabetes mellitus with hyperglycemia E11.65 [facility] [address] [place] [address] Jun, [facility] [id number] [place] [id number] Jun, Encounter for dental examination and cleaning without abnormal findings Z01.20 [facility] [id number] [place] [address] 18 Jun, 2018 [facility] [id number] [place] [address] 14 Jun, 2018 Uncontrolled type 2 diabetes mellitus with hyperglycemia E11.65 [facility] [id number] [place] [address] Oct, [facility] [address] [place] [address] Oct, Mood disorder F39 [facility] [address] [place] [id number] Sep, Dental examination Z01.20 [facility] [address] [place] [address] Aug, Tooth infection K04.7 [facility] [address] [place] [address] 07 Aug, 2017 Mood disorder F39 [facility] [address] [place] [address] May, Mood disorder F39 [facility] [address] [place] [id number] 10 Oct, 2016 Mood disorder F39 [facility] [address], [place] [address] February, Chest pain, unspecified type R07.9 and MRSA (methicillin resistant staph aureus) culture positive Z22.322 [facility] [address] [id number] [place] [address] 14 Jan, 2015 [facility] [address] [id number] [place] [address] Jan, [facility] [address] [id number] [place] [address] Dec, [facility] [address] [id number] [place] [address] Dec, [facility] [address] [id number] [place] [address] Dec, [facility] [address] [id number] [place] [address] Dec, [facility] [address] [id number] [place] [address] May, [facility] [address] [id number] [place] [address] May, [facility] [address] [id number] [place] [address] Apr, [facility] [address] [id number] [place] [address] Dec, [facility] [address] [id number] [place] [address] Dec, [facility] [address] [id number], [place] [address] Dec, [facility] [address] [id number] [place] [address] Dec, [facility] [address] [id number] [place] [address] Dec, [facility] [address] [id number], [place] [address] Dec, [facility] [place] [facility] [address] [id number] [place] [address] Dec, [facility] [place] [facility] [address] [id number] [place] [address] 24 Dec, 2013 [facility] [place] [facility] [address] [id number] [place] [address] Dec, [facility] [place] [facility] [address] [id number] [place] [address] Dec, [facility] [place] [facility] [address] [id number] [place] [address] 14 Dec, 2013 [facility] [place] [facility] [address] [id number] [place] [address] 14 Dec, 2013 [facility] [place] [facility] [address] [id number] [place] [address] Dec, [facility] [place] [facility] [address] [id number] [place] [address] Dec, [facility] [place] [facility] [address] [id number] [place] [address] Nov, [facility] [place] [facility] [address] [id number] [place] [address] Nov, [facility] [place] [facility] [address] [id number] [place] [address] Nov, [facility] [place] [facility] [address] [id number] [place] [address] Nov, [facility] [place] [facility] [address] [id number] [place] [address] Nov, [facility] [place] [facility] [address] [id number] [place] [address] Nov, [facility] [place] [facility] [address] [id number] [place] [address] Oct, [facility] [place] [facility] [address] [id number] [place] [address] Oct, [facility] [address] [id number] [place] [address] Oct, [facility] [place] [facility] [address] [id number] [place] [address] Oct, [facility] [address] [id number] [place] [address] Oct, [facility] [place] [facility] [address] [id number] [place] [address] Oct, [facility] [address] [id number] [place] [address] Sep, [facility] [place] [facility] [address] [id number] [place] [address] Sep, [facility] [address] [id number] [place] [address] Sep, [facility] [place] [facility] [address] [id number] [place] [address] Sep, [facility] [address] [id number] [place] [address] Sep, [facility] [address] [id number] [place] [address] Sep, [facility] [place] [facility] [address] [id number] [place] [address] Sep, [facility] [place] [facility] [address] [id number] [place] [address] Sep, [facility] [place] [facility] [address] [id number] [place] [address] Sep, [facility] [place] [facility] [address] [id number] [place] [address] Aug, [facility] [place] [facility] [address] [id number] [place] [address] Aug, [facility] [place] [facility] [address] [id number] [place] [address] 18 Aug, 2013 [facility] [place] [facility] [address] [id number] [place] [address] 14 Aug, 2013 [facility] [place] [facility] [address] [id number] [place] [address] 14 Aug, 2013 [facility] [place] [facility] [address] [id number] [place] [address] 14 Aug, 2013 [facility] [place] [facility] [address] [id number] [place] [address] 14 Aug, 2013 [facility] [place] [facility] [address] [id number] [place] [address] 18 Jul, 2013 [facility] [place] [facility] [address] [id number] [place] [address] 18 Jul, 2013 [facility] [place] [facility] [address] [id number] [place] [address] 17 Jul, 2013 [facility] [place] [facility] [address] [id number] [place] [address] 17 Jul, 2013 [facility] [place] [facility] [address] [id number] [place] [address] 16 Jul, 2013 [facility] [place] [facility] [address] [id number] [place] [address] 26 Jun, 2013 [facility] [place] [facility] [address] [id number] [place] [address] 26 Jun, 2013 [facility] [place] [facility] [address] [id number] [place] [address] 25 Jun, 2013 [facility] [place] [facility] [address] [id number] [place] [address] 24 Jun, 2013 [facility] [place] [facility] [address] [id number] [place] [address] Apr, [facility] [place] [facility] [address] [id number] [place] [address] Mar, [facility] [address] [facility] [id number] [place] [address] Mar, [facility] [address] [facility] [id number] [place] [address] Jan, IMMUNIZATIONS No Known Immunizations SOCIAL HISTORY Never Assessed REASON FOR VISIT EMR-[facility] PLAN OF CARE VITAL SIGNS MEDICATIONS Unknown Medications RESULTS No Results PROCEDURES No Known procedures INSTRUCTIONS MEDICATIONS ADMINISTERED No Known Medications MEDICAL (GENERAL) HISTORY Type Description Date Medical History heart attack 2014 Medical History history of infective endocarditis Medical History heart murmur Medical History idiopathic cardiomypathy Medical History Undergoing treatment for substance addiction Surgical History Heart cath at [facility] by Dr Barahona 2014
--- OUTSIDE RECORDS SUMMARY | 2019-06-04 00:48 | XMS REPORT ---
Author Author WILFREDO GOETZ [facility] Address Unknown Care Team Providers Care Bag Inspector Name Role Phone WILFREDO GOETZ Unavailable PROBLEMS Type Condition ICD9-CM Code WQS80-[place] Code Onset Dates Condition Status SNOMED Code Problem Coronary atherosclerosis of unspecified type of vessel, [place] or graft 414.00 Active 780770165 Problem Nondependent tobacco use disorder 305.1 Active 972160722 Problem Depressive disorder, not elsewhere classified 311 Active 60714630 Problem Mood disorder F39 Active 53748519 Problem Other and unspecified hyperlipidemia 272.4 Active 28275413 Problem Obsessive-compulsive disorders 300.3 Active 361828829 Problem Nondependent alcohol abuse, unspecified drunkenness 305.00 Active 724533252 Problem Obesity, unspecified 278.00 Active 982857153 Problem Anxiety state, unspecified 300.00 Active 428180831 Problem Counseling on substance use and abuse V65.42 Active 047676061 Problem Encounter for change or removal of surgical wound dressing V58.31 Active 10392218 Problem Unspecified voice disturbance 784.40 Active 50842001 Problem Other malaise and fatigue 780.79 Active 080895304 Problem Family history of ischemic heart disease V17.3 Active 492383387 Problem Pain in joint, pelvic region and thigh 719.45 Active 821269621 Problem Other abnormal glucose 790.29 Active 116292252 Problem Cellulitis and abscess of unspecified site 682.9 Active 011688183 ALLERGIES Substance Reaction Event Type Date Status Bee Sting Unknown Non Drug Allergy Sep, Active ENCOUNTERS Encounter Location Date Diagnosis [facility] [address] [id number], [place] [address] Oct, [facility] [address] [id number], [place] [address] Oct, Mood disorder F39 [facility] [address] [id number] [id number] Sep, Dental examination Z01.20 [facility] [address] [id number], [place] [address] Aug, Tooth infection K04.7 [facility] [address] [id number], [place] [address] Aug, Mood disorder F39 [facility] [address] [id number], [place] [address] May, Mood disorder F39 [facility] [address] [place] [id number] Oct, Mood disorder F39 [facility] [address] [id number], [place] [address] February, Chest pain, unspecified type R07.9 and MRSA (methicillin resistant staph aureus) culture positive Z22.322 [facility] [address] [id number], [place] [address] 14 Jan, 2015 [facility] [address] [id number], [place] [address] Jan, [facility] [address] [id number], [place] [address] Dec, [facility] [address] [id number], [place] [address] Dec, [facility] [address] [id number], [place] [address] Dec, [facility] [address] [id number], [place] [address] Dec, [facility] [address] [id number], [place] [address] May, [facility] [address] [id number], [place] [address] May, [facility] [address] [id number], [place] [address] Apr, [facility] [address] [id number] [place] [address] 31 Dec, 2013 [facility] [place] [facility] [address] [id number] [place] [address] 31 Dec, 2013 [facility] [place] [facility] [address] [id number] [place] [address] Dec, [facility] [place] [facility] [address] [id number] [place] [address] Dec, [facility] [place] [facility] [address] [id number] [place] [address] Dec, [facility] [place] [facility] [address] [id number] [place] [address] Dec, [facility] [place] [facility] [address] [id number] [place] [address] Dec, [facility] [place] [facility] [address] [id number] [place] [address] Dec, [facility] [place] [facility] [address] [id number] [place] [address] Dec, [facility] [place] [facility] [address] [id number] [place] [address] 19 Dec, 2013 [facility] [place] [facility] [address] [id number] [place] [address] 14 Dec, 2013 [facility] [place] [facility] [address] [id number] [place] [address] 14 Dec, 2013 [facility] [place] [facility] [address] [id number] [place] [address] Dec, [facility] [place] [facility] [address] [id number] [place] [address] Dec, [facility] [place] [facility] [address] [id number] [place] [address] Nov, [facility] [place] [facility] [address] [id number] [place] [address] Nov, [facility] [place] [facility] [address] [id number] [place] [address] Nov, [facility] [place] [facility] [address] [id number] [place] [address] Nov, [facility] [place] [facility] [address] [id number] [place] [address] Nov, [facility] [place] [facility] [address] [id number] [place] [address] Nov, [facility] [place] [facility] [address] [id number] [place] [address] Oct, [facility] [place] [facility] [address] [id number] [place] [address] Oct, [facility] [place] [facility] [address] [id number] [place] [address] Oct, [facility] [place] [facility] [address] [id number] [place] [address] Oct, [facility] [place] [facility] [address] [id number] [place] [address] Oct, [facility] [place] [facility] [address] [id number] [place] [address] Oct, [facility] [place] [facility] [address] [id number], [place] [address] Sep, [facility] [place] [facility] [address] [id number], [place] [address] Sep, [facility] [place] [facility] [address] [id number] [place] [address] Sep, [facility] [place] [facility] [address] [id number] [place] [address] Sep, [facility] [place] [facility] [address] [id number] [place] [address] Sep, [facility] [place] [facility] [address] [id number] [place] [address] 04 Sep, 2013 [facility] [address] [id number] [place] [address] 04 Sep, 2013 [facility] [place] [facility] [address] [id number] [place] [address] 04 Sep, 2013 [facility] [place] [facility] [address] [id number] [place] [address] 04 Sep, 2013 [facility] [place] [facility] [address] [id number] [place] [address] Aug, [facility] [place] [facility] [address] [id number] [place] [address] 21 Aug, 2013 [facility] [place] [facility] [address] [id number] [place] [address] 18 Aug, 2013 [facility] [place] [facility] [address] [id number] [place] [address] 14 Aug, 2013 [facility] [place] [facility] [address] [id number] [place] [address] 14 Aug, 2013 [facility] [place] [facility] [address] [id number] [place] [address] 14 Aug, 2013 [facility] [place] [facility] [address] [id number] [place] [address] 14 Aug, 2013 [facility] [place] [facility] [address] [id number] [place] [address] 18 Jul, 2013 [facility] [place] [facility] [address] [id number], [place] [address] 18 Jul, 2013 [facility] [place] [facility] [address] [id number] [place] [address] 17 Jul, 2013 [facility] [place] [facility] [address] [id number] [place] [address] 17 Jul, 2013 [facility] [place] [facility] [address] [id number], [place] [address] 16 Jul, 2013 [facility] [address] [id number], [place] [address] Jun, [facility] [address], [place] [address] Jun, [facility] [address], [place] [address] Jun, [facility] [address], [place] [address] Jun, [facility] [address], [place] [address] Apr, [facility] [address], [place] [address] Mar, [facility] [address], [place] [address] Mar, [facility] [address], [place] [address] Jan, IMMUNIZATIONS No Known Immunizations SOCIAL HISTORY Never Assessed REASON FOR VISIT SHERRI PLAN OF CARE Activity Details Follow Up 1 Week Reason:te VITAL SIGNS Blood pressure systolic 121 mmHg 2017-10-10 Blood pressure diastolic 85 mmHg 2017-10-10 MEDICATIONS Medication Instructions Dosage Frequency Start Date End Date Duration Status Simvastatin 20 mg 1 tablet by Oral route 1 time per day Dec, Not-Taking Lisinopril 20 mg take 1 tablet by Oral route 1 time per day renal protection, b/p Dec, Not-Taking metformin 500 mg take 1 tablet by Oral route 2 times per day with morning and evening meals for diabetes, with food Dec, Not-Taking Viibryd 20 mg Orally Once a day 2 tablets 24h Aug, 30 day(s) Active HydrOXYzine HCl 100 mg 1 Tablet by Oral route 3 times per day for anxiety Nov, Not-Taking Paxil 10 mg 1 tablet by Oral route 2 times per day for 30 days Sep, Not-Taking Amoxicillin 500 MG Orally 1 hour before dental treatment 4 capsules Sep, 1 days Active Trazodone HCl 50 MG Orally Once a day 1 tablet at bedtime 24h May, 14 days Active RESULTS No Results PROCEDURES Procedure Date Ordered Result Body Site LTD ORAL EVALUATION - PROBLEM FOCUS Oct 10, 2017 INTRAORL-PERIAPICAL 1 FILM 73875 Oct 10, 2017 INSTRUCTIONS MEDICATIONS ADMINISTERED No Known Medications MEDICAL (GENERAL) HISTORY Type Description Date Medical History heart attack 2014 Medical History history of infective endocarditis Medical History heart murmur Medical History idiopathic cardiomypathy
--- OUTSIDE RECORDS SUMMARY | 2019-06-04 00:48 | XMS REPORT ---
Author Author YESSICA SAMANIEGO [facility] Address [address] [place] [address] Phone Unavailable Care Team Providers Care Component Design Engineer Name Role Phone YESSICA SAMANIEGO Unavailable Unavailable PROBLEMS ALLERGIES ENCOUNTERS IMMUNIZATIONS No Known Immunizations SOCIAL HISTORY No smoking Hx information available REASON FOR VISIT PLAN OF CARE VITAL SIGNS MEDICATIONS RESULTS No Results PROCEDURES INSTRUCTIONS MEDICATIONS ADMINISTERED No Known Medications MEDICAL (GENERAL) HISTORY
--- OUTSIDE RECORDS SUMMARY | 2019-06-04 00:48 | XMS REPORT ---
Author Author MIGNON DUNCAN Organization [facility] Address [address] [place] [address] Care Team Providers Care Baby Stroller Rental Clerk Name Role Phone MIGNON DUNCAN Unavailable PROBLEMS Type Condition ICD9-CM Code DPG83-PI Code Onset Dates Condition Status SNOMED Code Problem Coronary atherosclerosis of unspecified type of vessel, [place] or graft 414.00 Active 215322830 Problem Nondependent tobacco use disorder 305.1 Active 436919676 Problem Depressive disorder, not elsewhere classified 311 Active 67092988 Problem Mood disorder F39 Active 61462696 Problem Other and unspecified hyperlipidemia 272.4 Active 76049294 Problem Obsessive-compulsive disorders 300.3 Active 665649758 Problem Nondependent alcohol abuse, unspecified drunkenness 305.00 Active 623423146 Problem Obesity, unspecified 278.00 Active 009067354 Problem Anxiety state, unspecified 300.00 Active 350991572 Problem Counseling on substance use and abuse V65.42 Active 284367453 Problem Encounter for change or removal of surgical wound dressing V58.31 Active 55803866 Problem Unspecified voice disturbance 784.40 Active 41490570 Problem Other malaise and fatigue 780.79 Active 374524945 Problem Family history of ischemic heart disease V17.3 Active 388877849 Problem Pain in joint, pelvic region and thigh 719.45 Active 946582684 Problem Other abnormal glucose 790.29 Active 438778127 Problem Cellulitis and abscess of unspecified site 682.9 Active 825667630 ALLERGIES No Information ENCOUNTERS Encounter Location Date Diagnosis [facility] [address] [id number] [address] Oct, [facility] [address] [place] [address] Oct, Mood disorder F39 [facility] [address] [id number] [address] 15 Dec, 2017 Dental examination Z01.20 [facility] [address] [id number] [place] [address] Aug, Tooth infection K04.7 [facility] [address] [id number] [place] [address] 07 Aug, 2017 Mood disorder F39 [facility] [address] [id number] [place] [address] May, Mood disorder F39 [facility] [address] [facility] [place] [id number] Oct, Mood disorder F39 [facility] [address] [id number] [place] [address] February, Chest pain, unspecified type R07.9 and MRSA (methicillin resistant staph aureus) culture positive Z22.322 [facility] [address] [id number] [place] [address] 14 Jan, 2015 [facility] [address] [id number] [place] [address] Jan, [facility] [address] [id number] [place] [address] Dec, [facility] [address] [id number] [place] [address] Dec, [facility] [address] [id number] [place] [address] Dec, [facility] [address] [id number] [place] [address] Dec, [facility] [address] [id number] [place] [address] May, [facility] [address] [id number] [place] [address] May, [facility] [address] [id number] [place] [address] Apr, [facility] [address] [id number] [place] [address] 31 Dec, 2013 [facility] [place] [facility] [address] [id number] [place] [address] 31 Dec, 2013 [facility] [place] [facility] [address] [id number] [place] [address] Dec, [facility] [place] [facility] [address] [id number] [place] [address] Dec, [facility] [place] [facility] [address] [id number] [place] [address] Dec, [facility] [place] [facility] [address] [id number] [place] [address] Dec, [facility] [place] [facility] [address] [id number] [place] [address] Dec, [facility] [place] [facility] [address] [id number] [place] [address] Dec, [facility] [place] [facility] [address] [id number] [place] [address] Dec, [facility] [place] [facility] [address] [id number] [place] [address] 19 Dec, 2013 [facility] [place] [facility] [address] [id number] [place] [address] Dec, [facility] [place] [facility] [address] [id number] [place] [address] 14 Dec, 2013 [facility] [place] [facility] [address] [id number] [place] [address] Dec, [facility] [place] [facility] [address] [id number] [place] [address] Dec, [facility] [place] [facility] [address] [id number] [place] [address] 05 Nov, 2013 [facility] [place] [facility] [address] [id number] [place] [address] Nov, [facility] [place] [facility] [address] [id number] [place] [address] Nov, [facility] [place] [facility] [address] [id number] [place] [address] Nov, [facility] [place] [facility] [address] [id number] [place] [address] Nov, [facility] [place] [facility] [address] [id number] [place] [address] Nov, [facility] [place] [facility] [address] [id number] [place] [address] Oct, [facility] [place] [facility] [address] [id number] [place] [address] Oct, [facility] [place] [facility] [address] [id number] [place] [address] Oct, [facility] [place] [facility] [address] [id number] [place] [address] Oct, [facility] [place] [facility] [address] [id number] [place] [address] Oct, [facility] [place] [facility] [address] [id number] [place] [address] Oct, [facility] [place] [facility] [address] [id number] [place] [address] Sep, [facility] [place] [facility] [address] [id number] [place] [address] Sep, [facility] [place] [facility] [address] [id number] [place] [address] Sep, [facility] [place] [facility] [address] [id number] [place] [address] Sep, [facility] [place] [facility] [address] [id number] [place] [address] Sep, [facility] [place] [facility] [address] [id number] [place] [address] 04 Sep, 2013 [facility] [place] [facility] [address] [id number] [place] [address] 04 Sep, 2013 [facility] [place] [facility] [address] [id number] [place] [address] 04 Sep, 2013 [facility] [place] [facility] [address] [id number] [place] [address] Sep, [facility] [place] [facility] [address] [id number] [place] [address] Aug, [facility] [place] [facility] [address] [id number] [place] [address] Aug, [facility] [place] [facility] [address] [id number] [place] [address] 18 Aug, 2013 [facility] [place] [facility] [address] [id number] [place] [address] 14 Aug, 2013 [facility] [place] [facility] [address] [id number] [place] [address] 14 Aug, 2013 [facility] [place] [facility] [address] [id number] [place] [address] 14 Aug, 2013 [facility] [place] [facility] [address] [id number] [place] [address] 14 Aug, 2013 [facility] [place] [facility] [address] [id number] [place] [address] 18 Jul, 2013 [facility] [place] [facility] [address] [id number] [address] 18 Jul, 2013 [facility] [place] [facility] [address] [id number] [place] [address] 17 Jul, 2013 [facility] [place] [facility] [address] [id number] [place] [address] 17 Jul, 2013 [facility] [place] [facility] [address] [id number] [place] [address] 16 Jul, 2013 [facility] [place] [facility] [address] [id number] [address] Jun, [facility] [address]65100[place] [address] Jun, [facility] [address]65100[place] [address] Jun, [facility] [address]100[place] [address] Jun, [facility] [address]100[place] [address] Apr, [facility] [address]00565100[place] [address] Mar, [facility] [address]005[address]100[place] [address] Mar, [facility] [address]100[place] [address] Jan, IMMUNIZATIONS No Known Immunizations SOCIAL HISTORY Never Assessed REASON FOR VISIT medication request PLAN OF CARE VITAL SIGNS MEDICATIONS Unknown Medications RESULTS No Results PROCEDURES No Known procedures INSTRUCTIONS MEDICATIONS ADMINISTERED No Known Medications MEDICAL (GENERAL) HISTORY Type Description Date Medical History heart attack 2014 Medical History history of infective endocarditis Medical History heart murmur Medical History idiopathic cardiomypathy
--- OUTSIDE RECORDS SUMMARY | 2019-06-04 00:48 | XMS REPORT ---
Author Author MIGNON DUNCAN Organization [facility] Address [address] [place] [address] Care Team Providers Care Tobacco Sorter Name Role Phone MIGNON DUNCAN Unavailable PROBLEMS Type Condition ICD9-CM Code [id number] Code Onset Dates Condition Status SNOMED Code Problem Coronary atherosclerosis of unspecified type of vessel, [place] or graft 414.00 Active 092817930 Problem Nondependent tobacco use disorder 305.1 Active 314754896 Problem Depressive disorder, not elsewhere classified 311 Active 13868979 Problem Mood disorder F39 Active 31278586 Problem Other and unspecified hyperlipidemia 272.4 Active 30266271 Problem Obsessive-compulsive disorders 300.3 Active 511441376 Problem Nondependent alcohol abuse, unspecified drunkenness 305.00 Active 537271909 Problem Obesity, unspecified 278.00 Active 810738818 Problem Anxiety state, unspecified 300.00 Active 243066101 Problem Counseling on substance use and abuse V65.42 Active 653524731 Problem Encounter for change or removal of surgical wound dressing V58.31 Active 86470332 Problem Unspecified voice disturbance 784.40 Active 50761153 Problem Other malaise and fatigue 780.79 Active 745826894 Problem Family history of ischemic heart disease V17.3 Active 448786810 Problem Pain in joint, pelvic region and thigh 719.45 Active 260539624 Problem Other abnormal glucose 790.29 Active 052912044 Problem Cellulitis and abscess of unspecified site 682.9 Active 254306352 ALLERGIES Substance Reaction Event Type Date Status Bee Sting Unknown Non Drug Allergy Aug, Active ENCOUNTERS Encounter Location Date Diagnosis [facility] [address] [address] Oct, [facility] [address], [place] [address] Oct, Mood disorder F39 [facility] [address] [id number] [id number] Sep, Dental examination Z01.20 [facility] [address] [id number], [place] [address] Aug, Tooth infection K04.7 [facility] [address] [id number], [place] [address] Aug, Mood disorder F39 [facility] [address] [id number], [place] [address] May, Mood disorder F39 [facility] [address] [place] [id number] Oct, Mood disorder F39 [facility] [address] [id number], [place] [address] February, Chest pain, unspecified type R07.9 and MRSA (methicillin resistant staph aureus) culture positive Z22.322 [facility] [address] [id number], [place] [address] 14 Jan, 2015 [facility] [address] [id number], [place] [address] Jan, [facility] [address] [id number], [place] [address] Dec, [facility] [address] [id number], [place] [address] Dec, [facility] [address] [id number], [place] [address] Dec, [facility] [address] [id number], [place] [address] Dec, [facility] [address] [id number], [place] [address] May, [facility] [address] [id number], [place] [address] May, [facility] [address] [id number], [place] [address] Apr, [facility] [place] [facility] [address] [id number] [place] [address] 31 Dec, 2013 [facility] [place] [facility] [address] [id number] [place] [address] 31 Dec, 2013 [facility] [place] [facility] [address] [id number] [place] [address] Dec, [facility] [place] [facility] [address] [id number] [place] [address] Dec, [facility] [place] [facility] [address] [id number] [place] [address] Dec, [facility] [place] [facility] [address] [id number] [place] [address] Dec, [facility] [place] [facility] [address] [id number] [place] [address] Dec, [facility] [place] [facility] [address] [id number] [place] [address] 24 Dec, 2013 [facility] [place] [facility] [address] [id number] [place] [address] Dec, [facility] [place] [facility] [address] [id number] [place] [address] 19 Dec, 2013 [facility] [place] [facility] [address] [id number] [place] [address] 14 Dec, 2013 [facility] [place] [facility] [address] [id number] [place] [address] 14 Dec, 2013 [facility] [place] [facility] [address] [id number] [place] [address] 13 Dec, 2013 [facility] [place] [facility] [address] [id number] [place] [address] 13 Dec, 2013 [facility] [place] [facility] [address] [id number] [place] [address] 05 Nov, 2013 [facility] [place] [facility] [address] [id number] [place] [address] Nov, [facility] [address] [id number] [place] [address] Nov, [facility] [place] [facility] [address] [id number] [place] [address] Nov, [facility] [place] [facility] [address] [facility] [id number] [place] [address] Nov, [facility] [place] [facility] [address] [id number] [place] [address] Nov, [facility] [address] [id number] [place] [address] Oct, [facility] [place] [facility] [address] [id number] [place] [address] Oct, [facility] [address] [facility] [id number] [place] [address] Oct, [facility] [place] [facility] [address] [id number] [place] [address] Oct, [facility] [address] [facility] [id number] [place] [address] Oct, [facility] [place] [facility] [address] [facility] [id number] [place] [address] Oct, [facility] [address] [id number], [place] [address] Sep, [facility] [place] [facility] [address] [id number], [place] [address] Sep, [facility] [place] [facility] [address] [id number] [place] [address] Sep, [facility] [place] [facility] [address] [facility] [id number] [place] [address] Sep, [facility] [place] [facility] [address] [facility] [id number] [place] [address] Sep, [facility] [place] [facility] [address] [id number] [place] [address] 04 Sep, 2012 [facility] [place] [facility] [address] [id number] [place] [address] 04 Sep, 2013 [facility] [place] [facility] [address] [id number] [place] [address] 04 Sep, 2013 [facility] [place] [facility] [address] [id number] [place] [address] 04 Sep, 2013 [facility] [place] [facility] [address] [id number] [place] [address] Aug, [facility] [place] [facility] [address] [id number] [place] [address] 21 Aug, 2013 [facility] [place] [facility] [address] [id number] [place] [address] 18 Aug, 2013 [facility] [place] [facility] [address] [id number] [place] [address] 14 Aug, 2013 [facility] [place] [facility] [address] [id number] [place] [address] 14 Aug, 2013 [facility] [place] [facility] [address] [id number] [place] [address] 14 Aug, 2013 [facility] [place] [facility] [address] [id number] [place] [address] 14 Aug, 2013 [facility] [place] [facility] [address] [id number] [place] [address] 18 Jul, 2013 [facility] [place] [facility] [address] [id number] [place] [address] 18 Jul, 2013 [facility] [place] [facility] [address] [id number] [place] [address] 17 Jul, 2013 [facility] [place] [facility] [address] [id number] [place] [address] 17 Jul, 2013 [facility] [place] [facility] [address] [id number] [place] [address] Jul, [facility] [address] [id number], [place] [address] Jun, [facility] [address], [place] [address] Jun, [facility] [address] [id number], [place] [address] Jun, [facility] [address], [place] [address] Jun, [facility] [address], [place] [address] Apr, [facility] [address], [place] [address] Mar, [facility] [address], [place] [address] Mar, [facility] [address], [place] [address] Jan, IMMUNIZATIONS No Known Immunizations SOCIAL HISTORY Never Assessed REASON FOR VISIT senior living rx PLAN OF CARE VITAL SIGNS MEDICATIONS Medication Instructions Dosage Frequency Start Date End Date Duration Status Trazodone HCl 50 MG Orally Once a day 1 tablet at bedtime 24h May, 14 days Active Viibryd 20 mg Orally Once a day 2 tablets 24h Aug, 30 day(s) Active RESULTS No Results PROCEDURES No Known procedures INSTRUCTIONS MEDICATIONS ADMINISTERED No Known Medications MEDICAL (GENERAL) HISTORY Type Description Date Medical History heart attack 2014 Medical History history of infective endocarditis Medical History heart murmur Medical History idiopathic cardiomypathy
--- OUTSIDE RECORDS SUMMARY | 2019-06-04 00:48 | XMS REPORT ---
Author Author MIGNON DUNCAN Organization [facility] Address [address] [place] [address] Care Team Providers Care Analytical Consultant Name Role Phone MIGNON DUNCAN Unavailable PROBLEMS Type Condition ICD9-CM Code JCG10-OF Code Onset Dates Condition Status SNOMED Code Problem Coronary atherosclerosis of unspecified type of vessel, [place] or graft 414.00 Active 565212363 Problem Nondependent tobacco use disorder 305.1 Active 910333938 Problem Depressive disorder, not elsewhere classified 311 Active 55883205 Problem Mood disorder F39 Active 41048218 Problem Other and unspecified hyperlipidemia 272.4 Active 66928162 Problem Obsessive-compulsive disorders 300.3 Active 894827511 Problem Nondependent alcohol abuse, unspecified drunkenness 305.00 Active 701393861 Problem Obesity, unspecified 278.00 Active 681002149 Problem Anxiety state, unspecified 300.00 Active 489950850 Problem Counseling on substance use and abuse V65.42 Active 100315569 Problem Encounter for change or removal of surgical wound dressing V58.31 Active 93251081 Problem Unspecified voice disturbance 784.40 Active 74609407 Problem Other malaise and fatigue 780.79 Active 199983738 Problem Family history of ischemic heart disease V17.3 Active 708847170 Problem Pain in joint, pelvic region and thigh 719.45 Active 571798926 Problem Other abnormal glucose 790.29 Active 562540445 Problem Cellulitis and abscess of unspecified site 682.9 Active 470349172 ALLERGIES No Information ENCOUNTERS Encounter Location Date Diagnosis [facility] [address] [id number] [address] Oct, [facility] [address] [place] [address] Oct, Mood disorder F39 [facility] [address] [id number] [place] [address] 15 Dec, 2017 Dental examination Z01.20 [facility] [address] [id number] [place] [address] Aug, Tooth infection K04.7 [facility] [address] [id number] [place] [address] 07 Aug, 2017 Mood disorder F39 [facility] [address] [id number] [place] [address] May, Mood disorder F39 [facility] [address] [place] [id number] Oct, Mood disorder F39 [facility] [address] [id number] [place] [address] February, Chest pain, unspecified type R07.9 and MRSA (methicillin resistant staph aureus) culture positive Z22.322 [facility] [address] [id number] [place] [address] 14 Jan, 2015 [facility] [address] [id number] [place] [address] Jan, [facility] [address] [id number] [place] [address] Dec, [facility] [address] [id number] [place] [address] Dec, [facility] [address] [id number] [place] [address] Dec, [facility] [address] [id number] [place] [address] Dec, [facility] [address] [id number] [place] [address] May, [facility] [address] [id number] [place] [address] May, [facility] [address] [id number] [place] [address] Apr, [facility] [address] [id number] [place] [address] 31 Dec, 2013 [facility] [place] [facility] [address] [id number] [place] [address] 31 Dec, 2013 [facility] [place] [facility] [address] [id number] [place] [address] Dec, [facility] [place] [facility] [address] [id number] [place] [address] Dec, [facility] [place] [facility] [address] [id number] [place] [address] Dec, [facility] [place] [facility] [address] [id number] [place] [address] Dec, [facility] [place] [facility] [address] [id number] [place] [address] Dec, [facility] [place] [facility] [address] [id number] [place] [address] Dec, [facility] [place] [facility] [address] [id number] [place] [address] Dec, [facility] [place] [facility] [address] [id number] [place] [address] 19 Dec, 2013 [facility] [place] [facility] [address] [id number] [place] [address] Dec, [facility] [place] [facility] [address] [id number] [place] [address] 14 Dec, 2013 [facility] [place] [facility] [address] [id number] [place] [address] Dec, [facility] [place] [facility] [address] [id number] [place] [address] Dec, [facility] [place] [facility] [address] [id number] [place] [address] 05 Nov, 2013 [facility] [place] [facility] [address] [id number] [place] [address] Nov, [facility] [place] [facility] [address] [id number] [place] [address] Nov, [facility] [place] [facility] [address] [id number] [place] [address] Nov, [facility] [place] [facility] [address] [id number] [place] [address] Nov, [facility] [place] [facility] [address] [id number] [place] [address] Nov, [facility] [place] [facility] [address] [id number] [place] [address] Oct, [facility] [place] [facility] [address] [id number] [place] [address] Oct, [facility] [place] [facility] [address] [id number] [place] [address] Oct, [facility] [place] [facility] [address] [id number] [place] [address] Oct, [facility] [place] [facility] [address] [id number] [place] [address] Oct, [facility] [place] [facility] [address] [id number] [place] [address] Oct, [facility] [place] [facility] [address] [id number] [place] [address] Sep, [facility] [place] [facility] [address] [id number] [place] [address] Sep, [facility] [place] [facility] [address] [id number] [place] [address] Sep, [facility] [place] [facility] [address] [id number] [place] [address] Sep, [facility] [place] [facility] [address] [id number] [place] [address] Sep, [facility] [place] [facility] [address] [id number] [place] [address] 04 Sep, 2013 [facility] [place] [facility] [address] [id number] [place] [address] 04 Sep, 2013 [facility] [place] [facility] [address] [id number] [place] [address] 04 Sep, 2013 [facility] [place] [facility] [address] [id number] [place] [address] Sep, [facility] [place] [facility] [address] [id number] [place] [address] Aug, [facility] [place] [facility] [address] [id number] [place] [address] Aug, [facility] [place] [facility] [address] [id number] [place] [address] 18 Aug, 2013 [facility] [place] [facility] [address] [id number] [place] [address] 14 Aug, 2013 [facility] [place] [facility] [address] [id number] [place] [address] 14 Aug, 2013 [facility] [place] [facility] [address] [id number] [place] [address] 14 Aug, 2013 [facility] [place] [facility] [address] [id number] [place] [address] 14 Aug, 2013 [facility] [place] [facility] [address] [id number] [place] [address] 18 Jul, 2013 [facility] [place] [facility] [address] [id number] [place] [address] 18 Jul, 2013 [facility] [place] [facility] [address] [id number] [place] [address] 17 Jul, 2013 [facility] [place] [facility] [address] [id number] [place] [address] 17 Jul, 2013 [facility] [place] [facility] [address] [id number] [place] [address] 16 Jul, 2013 [facility] [place] [facility] [address] [id number] [address] Jun, [facility] [address] [id number] [address] Jun, [facility] [address] [address] Jun, [facility] [address] [address] Jun, [facility] [address] [address] Apr, [facility] [address] [address] Mar, [facility] [address] [address] Mar, [facility] [address] [address] Jan, IMMUNIZATIONS No Known Immunizations SOCIAL HISTORY Never Assessed REASON FOR VISIT shelter rx PLAN OF CARE VITAL SIGNS MEDICATIONS Medication Instructions Dosage Frequency Start Date End Date Duration Status Trazodone HCl 100 MG Orally Once a day 1 tablet at bedtime 24h May, 14 days Active RESULTS No Results PROCEDURES No Known procedures INSTRUCTIONS MEDICATIONS ADMINISTERED No Known Medications MEDICAL (GENERAL) HISTORY Type Description Date Medical History heart attack 2014 Medical History history of infective endocarditis Medical History heart murmur Medical History idiopathic cardiomypathy
--- OUTSIDE RECORDS SUMMARY | 2019-06-04 00:48 | XMS REPORT ---
Author Author MIGNON DUNCAN Organization [facility] Address [address] [place] [address] Care Team Providers Care Heel Seat Laster Name Role Phone MIGNON DUNCAN Unavailable PROBLEMS Type Condition ICD9-CM Code [id number] Code Onset Dates Condition Status SNOMED Code Problem Depressive disorder, not elsewhere classified 311 Active 48481709 Problem Nondependent alcohol abuse, unspecified drunkenness 305.00 Active 741385745 Problem Nondependent tobacco use disorder 305.1 Active 503981699 Problem Uncontrolled type 2 diabetes mellitus with hyperglycemia E11.65 Active 334020507 Problem Mood disorder F39 Active 18378691 Problem Anxiety state, unspecified 300.00 Active 986518021 Problem Obsessive-compulsive disorders 300.3 Active 230722646 Problem Other and unspecified hyperlipidemia 272.4 Active 39178112 Problem Obesity, unspecified 278.00 Active 311644674 Problem Encounter for change or removal of surgical wound dressing V58.31 Active 53667317 Problem Family history of ischemic heart disease V17.3 Active 068354026 Problem Counseling on substance use and abuse V65.42 Active 684322874 Problem Other malaise and fatigue 780.79 Active 313374541 Problem Pain in joint, pelvic region and thigh 719.45 Active 006295158 Problem Other abnormal glucose 790.29 Active 775150461 Problem Cellulitis and abscess of unspecified site 682.9 Active 753476813 Problem Unspecified voice disturbance 784.40 Active 66636126 Problem Coronary atherosclerosis of unspecified type of vessel, [place] or graft 414.00 Active 412667284 ALLERGIES Substance Reaction Event Type Date Status Bee Sting Unknown Non Drug Allergy Jun, Active ENCOUNTERS Encounter Location Date Diagnosis [facility] [address] [facility] [id number], [place] [address] Jul, [facility] [address] [facility] [place] [id number], [place] [address] 28 Jun, 2018 Uncontrolled type 2 diabetes mellitus with hyperglycemia E11.65 [facility] [address] [id number], [place] [address] 28 Jun, 2018 Uncontrolled type 2 diabetes mellitus with hyperglycemia E11.65 [facility] [address] [id number], [place] [address] 27 Jun, 2018 [facility] [address] [id number] 25 Jun, 2018 Encounter for dental examination and cleaning without abnormal findings Z01.20 [facility] [address] [id number], [place] [address] 18 Jun, 2018 [facility] [id number] [place] [address] 14 Jun, 2018 Uncontrolled type 2 diabetes mellitus with hyperglycemia E11.65 [facility] [address] [id number], [place] [address] 18 Oct, 2017 [facility] [address] [id number], [place] [address] 02 Oct, 2017 Mood disorder F39 [facility] [address] [id number] 15 Sep, 2017 Dental examination Z01.20 [facility] [address] [id number], [place] [address] 20 Aug, 2017 Tooth infection K04.7 [facility] [address] [id number], [place] [address] 07 Aug, 2017 Mood disorder F39 [facility] [address] [facility] [id number], [place] [address] May, Mood disorder F39 [facility] [address] [place] [id number] 10 Oct, 2016 Mood disorder F39 [facility] [address] [id number], [place] [address] February, Chest pain, unspecified type R07.9 and MRSA (methicillin resistant staph aureus) culture positive Z22.322 [facility] [address] [id number] [place] [address] 14 Jan, 2015 [facility] [address] [id number] [place] [address] 13 Jan, 2015 [facility] [place] [facility] [address] [id number] [place] [address] 27 Dec, 2014 [facility] [place] [facility] [address] [id number] [place] [address] 27 Dec, 2014 [facility] [place] [facility] [address] [id number] [place] [address] 10 Dec, 2014 [facility] [place] [facility] [address] [id number] [place] [address] Dec, [facility] [address] [id number] [place] [address] May, [facility] [place] [facility] [address] [id number] [place] [address] May, [facility] [address] [id number] [place] [address] Apr, [facility] [place] [facility] [address] [id number] [place] [address] Dec, [facility] [address] [id number] [place] [address] Dec, [facility] [place] [facility] [address] [id number] [place] [address] Dec, [facility] [place] [facility] [address] [id number] [place] [address] Dec, [facility] [place] [facility] [address] [id number] [place] [address] Dec, [facility] [place] [facility] [address] [id number] [place] [address] Dec, [facility] [place] [facility] [address] [id number] [place] [address] Dec, [facility] [place] [facility] [address] [id number] [place] [address] 24 Dec, 2013 [facility] [place] [facility] [address] [id number] [place] [address] Dec, [facility] [place] [facility] [address] [id number] [place] [address] Dec, [facility] [place] [facility] [address] [id number] [place] [address] 14 Dec, 2013 [facility] [place] [facility] [address] [id number] [place] [address] 14 Dec, 2013 [facility] [place] [facility] [address] [id number] [place] [address] Dec, [facility] [place] [facility] [address] [id number] [place] [address] Dec, [facility] [place] [facility] [address] [id number] [place] [address] Nov, [facility] [place] [facility] [address] [id number] [place] [address] Nov, [facility] [place] [facility] [address] [id number] [place] [address] Nov, [facility] [place] [facility] [address] [id number] [place] [address] Nov, [facility] [place] [facility] [address] [id number] [place] [address] Nov, [facility] [place] [facility] [address] [id number] [place] [address] Nov, [facility] [place] [facility] [address] [id number] [place] [address] Oct, [facility] [place] [facility] [address] [id number] [place] [address] Oct, [facility] [place] [facility] [address] [id number] [place] [address] Oct, [facility] [address] [id number] [place] [address] Oct, [facility] [address] [id number] [place] [address] Oct, [facility] [address] [id number] [place] [address] Oct, [facility] [address] [id number] [place] [address] Sep, [facility] [address] [id number] [place] [address] Sep, [facility] [address] [id number] [place] [address] Sep, [facility] [address] [id number] [place] [address] Sep, [facility] [address] [id number] [place] [address] Sep, [facility] [address] [id number] [place] [address] Sep, [facility] [address] [facility] [id number] [place] [address] Sep, [facility] [address] [id number] [place] [address] Sep, [facility] [address] [id number] [place] [address] Sep, [facility] [address] [id number] [place] [address] Aug, [facility] [address] [id number] [place] [address] Aug, [facility] [address] [id number] [place] [address] Aug, [facility] [place] [facility] [address] [id number] [place] [address] 14 Aug, 2013 [facility] [place] [facility] [address] [id number] [place] [address] 14 Aug, 2013 [facility] [place] [facility] [address] [id number] [place] [address] 14 Aug, 2013 [facility] [place] [facility] [address] [id number] [place] [address] 14 Aug, 2013 [facility] [place] [facility] [address] [id number] [place] [address] 18 Jul, 2013 [facility] [place] [facility] [address] [id number] [place] [address] 18 Jul, 2013 [facility] [place] [facility] [address] [id number] [place] [address] 17 Jul, 2013 [facility] [place] [facility] [address] [id number], [place] [address] 17 Jul, 2013 [facility] [place] [facility] [address] [id number] [place] [address] 16 Jul, 2013 [facility] [place] [facility] [address] [id number], [place] [address] 26 Jun, 2013 [facility] [place] [facility] [address] [id number], [place] [address] Jun, [facility] [place] [facility] [address] [id number], [place] [address] 25 Jun, 2013 [facility] [place] [facility] [address] [id number], [place] [address] 24 Jun, 2013 [facility] [place] [facility] [address] [id number], [place] [address] Apr, [facility] [place] [facility] [address] [id number], [place] [address] Mar, [facility] [place] [facility] [address] [id number], [place] [address] Mar, [facility] [address] [facility] [id number] [place] [address] Jan, IMMUNIZATIONS No Known Immunizations SOCIAL HISTORY Never Assessed REASON FOR VISIT Diabetes, PT needs some test strips. -Jabari ADLER PLAN OF CARE Activity Details Follow Up 4 Weeks Reason:dm2 uncontrolled VITAL SIGNS Height 76 in 2018-07-10 Weight 209.7 lbs 2018-07-10 Temperature 98.1 degrees Fahrenheit 2018-07-10 Heart Rate 117 bpm 2018-07-10 Respiratory Rate 18 2018-07-10 Oximetry 98 % 2018-07-10 BMI 25.52 kg/m2 2018-07-10 Blood pressure systolic 122 mmHg 2018-07-10 Blood pressure diastolic 90 mmHg 2018-07-10 MEDICATIONS Medication Instructions Dosage Frequency Start Date End Date Duration Status Olanzapine 5 mg Orally Once a day 1 tablet 24h 30 day(s) Active Metformin HCl 1000 mg Orally Once a day 1 tablet with a meal 24h 30 day(s) Active Levemir 100 UNIT/ML Subcutaneous Once a day Inject 50 units 24h Jun, Active Mirtazapine 45 MG Orally Once a day 1 tablet at bedtime 24h 30 day(s) Active GlipiZIDE 10 mg Orally Once a day 1 tablet 24h 30 day(s) Active Assure [place] 1 In Vitro 4 times a day test blood sugar 6h Jun, Active NovoLog 100 UNIT/ML Subcutaneous 3 times a day Inject 16 units 8h Jun, Active RESULTS Name Result Date Reference Range A1C (IN HOUSE) 2018-07-10 A1C IN HOUSE 10.4 4.3 - 5.6 % Previous A1c n/a Lot [id number] Exp date 12/2019 PROCEDURES Procedure Date Ordered Result Body Site GLYCATED HEMOGLOBIN TEST Jul 10, 2018 INSTRUCTIONS MEDICATIONS ADMINISTERED No Known Medications MEDICAL (GENERAL) HISTORY Type Description Date Medical History heart attack 2014 Medical History history of infective endocarditis Medical History heart murmur Medical History idiopathic cardiomypathy Medical History Undergoing treatment for substance addiction Surgical History Heart cath at [facility] by Dr Barahona 2014
--- OUTSIDE RECORDS SUMMARY | 2019-06-04 00:49 | XMS REPORT | Continuity of Care Document ---
Author Author [facility] Organization [facility] Address Unknown Phone Unavailable Care Team Providers Care Jr. Systems Administrator Name Role Phone [facility] Insurance Providers Payer Name Policy Number Subscriber Name Relationship Self Pay Yovanny Flaherty 01 Self / Same As Patient Advance Directives Directive Response Recorded Date Advance Directives N 07/29/13 2:05pm Health Care Power of Granulator N 07/29/13 2:05pm Organ Donor Y 07/29/13 2:05pm Problems No Known Problems or Medical conditions. Family History History Response Recorded Date/Time Hx Family Cancer N 07/29/13 2:15pm Hx Family Hypertension Y mom 07/29/13 2:15pm Social History History Response Recorded Date/Time Alcohol Use Past History 07/29/13 2:08pm Recreational Drug Use N 07/29/13 2:08pm Recent Foreign Travel N 07/29/13 2:08pm Recent Infectious Disease Exposure N 07/29/13 2:08pm Hospitalization with Isolation Denies 07/30/13 3:14pm Allergies, Adverse Reactions, Alerts Allergen Type Severity Reaction Last Updated BEE STING Allergy 07/29/13 Medications Medication Dose Units Route Sig Qty Days Fish Oil 3000 Mg PO DAILY Pantoprazole Sodium (Protonix) 1 Tab PO DAILY 30 Ibuprofen (Motrin) 1 Each PO TID 10 Aspirin (Aspirin Ec 81 Mg) 81 Mg PO DAILY Sertraline HCl (Zoloft) 25 Mg PO DAILY Immunizations Name Given Type Date of Influenza Vaccine 07/30/13 H influenza, split (incl. purified surface antigen) 07/30/13 A pneumococcal polysaccharide PPV23 07/30/13 A influenza, split (incl. purified surface antigen) 07/30/13 A pneumococcal polysaccharide PPV23 07/30/13 A Response Recorded Date/Time Status not known Unknown Results Test Date Result Interp. Ref. Range Activated Partial Thromboplast Time July 29, 2013 10:43am 29 SEC N 24-35 Basophils # (Auto) July 29, 2013 10:43am 0.1 10^3/uL N 0.0-0.1 Basophils (%) (Auto) July 29, 2013 10:43am 1 % N 0-10 Eosinophils # (Auto) July 29, 2013 10:43am 0.1 10^3/uL N 0.0-0.3 Eosinophils (%) (Auto) July 29, 2013 10:43am 2 % N 0-10 Hematocrit July 29, 2013 10:43am 42 % N 40-54 Hemoglobin July 29, 2013 10:43am 15.2 G/DL N 13.3-17.7 Lymphocytes # (Auto) July 29, 2013 10:43am 2.0 X 10^3 N 1.0-4.0 Lymphocytes (%) (Auto) July 29, 2013 10:43am 30 % N 12-44 Mean Corpuscular Hemoglobin July 29, 2013 10:43am 32 PG N 25-34 Mean Corpuscular Hemoglobin Concent July 29, 2013 10:43am 37 G/DL H 32-36 Mean Corpuscular Volume July 29, 2013 10:43am 87 FL N 80-99 Mean Platelet Volume July 29, 2013 10:43am 12.6 FL H 7.4-10.4 Monocytes # (Auto) July 29, 2013 10:43am 0.8 X 10^3 N 0.0-1.0 Monocytes (%) (Auto) July 29, 2013 10:43am 11 % N 0-12 Neutrophils # (Auto) July 29, 2013 10:43am 3.7 X 10^3 N 1.8-7.8 Neutrophils (%) (Auto) July 29, 2013 10:43am 56 % N 42-75 Platelet Count July 29, 2013 10:43am 129 10^3/uL L 130-400 Prothrombin Time July 29, 2013 10:43am 13.0 SEC N 12.2-14.7 Red Blood Count July 29, 2013 10:43am 4.78 10^6/uL N 4.35-5.85 Red Cell Distribution Width July 29, 2013 10:43am 12.3 % N 10.0-14.5 Troponin I July 29, 2013 10:43am 8.59 NG/ML PH 0.00-0.10 White Blood Count July 29, 2013 10:43am 6.6 10^3/uL N 4.3-11.0 INR Comment July 29, 2013 10:43am 1.0 N 0.8-1.4
--- OUTSIDE RECORDS SUMMARY | 2019-06-04 00:49 | XMS REPORT | Continuity of Care Document ---
Author Organization Unknown Address Unknown Phone Unavailable Allergies Active Description Code Type Severity Reaction Onset Reported/Identified Relationship to Patient Clinical Status Yes Bee sting OA N/A N/A 04/22/2013 Yes BEE STING BEE STING Unknown N/A 07/29/2013 Yes No Known Allergies [id number] Drug Allergy Unknown N/A 04/23/2019 Yes No Known Drug Allergy NKDA N/A N/A 05/18/2019 Medications Medication Packaging Start Date Stop Date Route Dosage Sig Metformin hydrochloride 500 MG Oral Tablet 09/04/2018 1 BID atorvastatin 40 MG Oral Tablet 11/03/2018 04/12/2019 1 Q1D Lisinopril 2.5 MG Oral Tablet 11/03/2018 1 Q1D Metformin hydrochloride 500 MG Oral Tablet 01/08/2019 1 Lisinopril 2.5 MG Oral Tablet 02/01/2019 04/12/2019 1 Q1D HYDROcodone/ ACETAMIN 5/325 02/03/2019 02/03/2019 PO 1 TAB ONE CLINDAMYCIN INJ 02/03/2019 02/03/2019 IM 600 MG ONE 0.5 ML dulaglutide 3 MG/ML Auto-Injector [Trulicity] 02/16/2019 1 Q1W SODIUM CHLORIDE 0.9% 04/23/2019 04/23/2019 IV 1000 ML ONE SODIUM CHLORIDE 0.9% 04/23/2019 04/23/2019 IV 1000 ML ONE INSULIN LISPRO (ED PYX) 04/23/2019 04/23/2019 SUBCUT 20 UNIT ONE HYDROcodone/ ACETAMIN 5/325 04/23/2019 PO 1 TAB Q4H ACETAMINOPHEN 04/23/2019 PO 325 MG Q4H CALCIUM CARB CHEW 04/23/2019 PO 500 MG PRN ONDANSETRON ODT 04/23/2019 PO 4 MG Q4H INSULIN LISPRO 04/23/2019 SUBCUT 0 UNIT SLIDING SODIUM CHLORIDE 0.9% 04/23/2019 04/23/2019 IV 1000 ML ONE SODIUM CHLORIDE 0.9% 04/23/2019 IV 1000 ML .Q8H POTASSIUM CHLORIDE INJ 04/23/2019 04/23/2019 IV 40 MEQ ONE INSULIN GLARGINE 04/23/2019 SUBCUT 50 UNIT BEDTIME&2100 NICOTINE INHALER SYSTEM 04/23/2019 INH 10 MG PRN ENOXAPARIN 04/24/2019 SUBCUT 40 MG DAILY@0600&0600 metFORMIN 04/24/2019 PO 500 MG DAILYB&0800 POTASSIUM CHLORIDE ER 04/24/2019 04/24/2019 PO 40 MEQ ONE HYPOGLYCEMIC PROTOCOL 04/24/2019 XX 1 EACH NOW INSULIN LISPRO 04/24/2019 SUBCUT 0 UNIT SLIDING DEXTROSE CHEW 04/24/2019 PO 16 GM PRN GLUCAGON INJ 04/24/2019 IM 1 MG PRN DEXTROSE 40% GEL 04/24/2019 PO 15 GM PRN DEXTROSE 50 % SYR 04/24/2019 IV 12.5 GM PRN INSULIN GLARGINE 04/24/2019 SUBCUT 60 UNIT BEDTIME&2100 DULAGLUTIDE 04/30/2019 SUBCUT 1.5 MG WEEKLY&0900 Problems Date Dx Coded Attending Type Code Diagnosis Diagnosed By 04/22/2013 719.45 PAIN IN JOINT INVOLVING [place] AND THIGH 04/22/2013 SAVANNA BOWMAN DO 719.45 PAIN IN JOINT INVOLVING [place] AND THIGH 04/22/2013 SAVANNA BOWMAN DO 719.45 PAIN IN JOINT INVOLVING [place] AND THIGH 04/22/2013 SAVANNA BOWMAN DO 719.45 PAIN IN JOINT INVOLVING [place] AND THIGH 04/22/2013 SAVANNA BOWMAN DO 719.45 PAIN IN JOINT INVOLVING PEL[place] AND THIGH 04/22/2013 SAVANNA BOWMAN DO 719.45 PAIN IN JOINT INVOLVING PEL[place] AND THIGH 04/22/2013 MIGNON DUNCAN APRN 719.45 PAIN IN JOINT INVOLVING PELVIC [employer] AND THIGH 04/22/2013 RAINE LEVI APRN 719.45 PAIN IN JOINT INVOLVING PELVIC [employer] AND THIGH 04/22/2013 SAVANNA BOWMAN DO 719.45 PAIN IN JOINT INVOLVING PELVIC [employer] AND THIGH 04/22/2013 NEETU RESENDIZ JR 719.45 PAIN IN JOINT INVOLVING PELVIC [employer]ION AND THIGH 07/20/2013 SAVANNA BOWMAN DO 300.3 OBSESSIVE-COMPULSIVE DISORDERS 07/20/2013 SAVANNA BOWMAN DO 780.79 OTHER MALAISE AND FATIGUE 07/20/2013 SAVANNA BOWMAN DO 784.40 VOICE AND RESONANCE DISORDER UNSPECIFIED 07/20/2013 BOWMAN DO, SAVANNA K 784.42 DYSPHONIA 07/20/2013 BOWMAN DO, SAVANNA K 300.3 OBSESSIVE-COMPULSIVE DISORDERS 07/20/2013 BOWMAN DO, SAVANNA K 780.79 OTHER MALAISE AND FATIGUE 07/20/2013 BOWMAN DO, SAVANNA K 784.40 VOICE AND RESONANCE DISORDER UNSPECIFIED 07/20/2013 BOWMAN DO, SAVANNA K 784.42 DYSPHONIA 07/20/2013 BOWMAN DO, SAVANNA K 300.3 OBSESSIVE-COMPULSIVE DISORDERS 07/20/2013 BOWMAN DO, SAVANNA K 780.79 OTHER MALAISE AND FATIGUE 07/20/2013 BWOMAN DO, SAVANNA K 784.40 VOICE AND RESONANCE DISORDER UNSPECIFIED 07/20/2013 BOWMAN DO, SAVANNA K 784.42 DYSPHONIA 07/20/2013 BOWMAN DO, SAVANNA K 300.3 OBSESSIVE-COMPULSIVE DISORDERS 07/20/2013 BOWMAN DO, SAVANNA K 780.79 OTHER MALAISE AND FATIGUE 07/20/2013 BOWMAN DO, SAVANNA K 784.40 VOICE AND RESONANCE DISORDER UNSPECIFIED 07/20/2013 BOWMAN DO, SAVANNA K 784.42 DYSPHONIA 07/20/2013 BOWMAN DO, SAVANNA K 300.3 OBSESSIVE-COMPULSIVE DISORDERS 07/20/2013 BOWMAN DO, SAVANNA K 780.79 OTHER MALAISE AND FATIGUE 07/20/2013 BOWMAN DO, SAVANNA K 784.40 VOICE AND RESONANCE DISORDER UNSPECIFIED 07/20/2013 BOWMAN DO, SAVANNA K 784.42 DYSPHONIA 07/20/2013 MIGNON DUNCAN APRN T 300.3 OBSESSIVE-COMPULSIVE DISORDERS 07/20/2013 MIGNON DUNCAN APRN T 780.79 OTHER MALAISE AND FATIGUE 07/20/2013 MIGNON DUNCAN APRN T 784.40 VOICE AND RESONANCE DISORDER UNSPECIFIED 07/20/2013 MIGNON DUNCAN APRN T 784.42 DYSPHONIA 07/20/2013 RAINE LEVI APRN L 300.3 OBSESSIVE-COMPULSIVE DISORDERS 07/20/2013 RAINE LEVI APRN L 780.79 OTHER MALAISE AND FATIGUE 07/20/2013 RAINE LEVI APRN L 784.40 VOICE AND RESONANCE DISORDER UNSPECIFIED 07/20/2013 RAINE LEVI APRN L 784.42 DYSPHONIA 07/20/2013 BOWMAN DO SAVANNA K 300.3 OBSESSIVE-COMPULSIVE DISORDERS 07/20/2013 BOWMAN DO, SAVANNA K 780.79 OTHER MALAISE AND FATIGUE 07/20/2013 BOWMAN DO, SAVANNA K 784.40 VOICE AND RESONANCE DISORDER UNSPECIFIED 07/20/2013 BOWMAN DO, SAVANNA K 784.42 DYSPHONIA 07/20/2013 NEETU RESENDIZ JR S 300.3 OBSESSIVE-COMPULSIVE DISORDERS 07/20/2013 NEETU RESENDIZ JR S 780.79 OTHER MALAISE AND FATIGUE 07/20/2013 NEETU RESENDIZ JR S 784.40 VOICE AND RESONANCE DISORDER UNSPECIFIED 07/20/2013 NEETU RESENDIZ JR S 784.42 DYSPHONIA 07/30/2013 MARCELA GERBER, REGINALD [place] Ot 300.00 07/30/2013 MARCELA GERBER, REGINALD [place] Ot 305.00 07/30/2013 MARCELA GERBER, REGINALD [place] Ot 305.1 07/30/2013 REGINALD MEDRANO MD Ot 397.0 07/30/2013 REGINALD MEDRANO MD Ot 424.0 07/30/2013 MARCELA GERBER, REGINALD [place] Ot 535.40 07/30/2013 MARCELA GERBER, REGINALD J Ot 571.8 07/30/2013 MARCELA GERBER, REGINALD [place] Ot 786.50 07/30/2013 MARCELA GERBER, REGINALD [place] Ot 790.99 07/30/2013 MARCELA GERBER, REGINALD [place] Ot V17.49 08/12/2013 BOWMAN DO, SAVANNA K 272.4 HYPERLIPIDEMIA 08/12/2013 BOWMAN , SAVANNA K 300.00 ANXIETY STATE UNSPECIFIED 08/12/2013 BOWMAN DO SAVANNA K 305.00 NONDEPENDENT ALCOHOL ABUSE UNSPECIFIED DRINKING BEHAVIOR 08/12/2013 BOWMAN DO, SAVANNA K 414.00 CORONARY ATHEROSCLEROSIS OF UNSPECIFIED TYPE OF VESSEL CHALKYITSIK OR GRAFT 08/12/2013 BOWMAN DO, SAVANNA K 272.4 HYPERLIPIDEMIA 08/12/2013 BOWMAN DO, SAVANNA K 300.00 ANXIETY STATE UNSPECIFIED 08/12/2013 BOWMAN DO, SAVANNA K 305.00 NONDEPENDENT ALCOHOL ABUSE UNSPECIFIED DRINKING BEHAVIOR 08/12/2013 BOWMAN DO, SAVANNA K 414.00 CORONARY ATHEROSCLEROSIS OF UNSPECIFIED TYPE OF VESSEL CHALKYITSIK OR GRAFT 08/12/2013 BOWMAN DO, SAVANNA K 272.4 HYPERLIPIDEMIA 08/12/2013 BOWMAN DO, SAVANNA K 300.00 ANXIETY STATE UNSPECIFIED 08/12/2013 BOWMAN DO, SAVANNA K 305.00 NONDEPENDENT ALCOHOL ABUSE UNSPECIFIED DRINKING BEHAVIOR 08/12/2013 BOWMAN DO, SAVANNA K 414.00 CORONARY ATHEROSCLEROSIS OF UNSPECIFIED TYPE OF VESSEL CHALKYITSIK OR GRAFT 08/12/2013 BOWMAN DO SAVANNA K 272.4 HYPERLIPIDEMIA 08/12/2013 BOWMAN DO, SAVANNA K 300.00 ANXIETY STATE UNSPECIFIED 08/12/2013 BOWMAN DO, SAVANNA K 305.00 NONDEPENDENT ALCOHOL ABUSE UNSPECIFIED DRINKING BEHAVIOR 08/12/2013 BOWMAN DO SAVANNA K 414.00 CORONARY ATHEROSCLEROSIS OF UNSPECIFIED TYPE OF VESSEL CHALKYITSIK OR GRAFT 08/12/2013 DAKOTA DENTAL CERAMIST ASSISTANTMIGNON T 272.4 HYPERLIPIDEMIA 08/12/2013 DAKOTA DENTAL CERAMIST ASSISTANT MIGNON T 300.00 ANXIETY STATE UNSPECIFIED 08/12/2013 DAKOTA DENTAL CERAMIST ASSISTANT MIGNON T 305.00 NONDEPENDENT ALCOHOL ABUSE UNSPECIFIED DRINKING BEHAVIOR 08/12/2013 DAKOTA DENTAL CERAMIST ASSISTANTMIGNON Manriquez T 414.00 CORONARY ATHEROSCLEROSIS OF UNSPECIFIED TYPE OF VESSEL CHALKYITSIK OR GRAFT 08/12/2013 EATRAINE ELLIS APRN L 272.4 HYPERLIPIDEMIA 08/12/2013 EATRHONDA DENTAL CERAMIST ASSISTANTMELISSA ManriquezSON L 300.00 ANXIETY STATE UNSPECIFIED 08/12/2013 EATON DENTAL CERAMIST ASSISTANT RAINE L 305.00 NONDEPENDENT ALCOHOL ABUSE UNSPECIFIED DRINKING BEHAVIOR 08/12/2013 EATON DENTAL CERAMIST ASSISTANTMELISSA ManriquezSON L 414.00 CORONARY ATHEROSCLEROSIS OF UNSPECIFIED TYPE OF VESSEL CHALKYITSIK OR GRAFT 08/12/2013 BOWMAN DO SAVANNA K 272.4 HYPERLIPIDEMIA 08/12/2013 BOWMAN DO SAVANNA K 300.00 ANXIETY STATE UNSPECIFIED 08/12/2013 BOWMAN DO SAVANNA K 305.00 NONDEPENDENT ALCOHOL ABUSE UNSPECIFIED DRINKING BEHAVIOR 08/12/2013 COLBY ZAPIEN SAVANNA K 414.00 CORONARY ATHEROSCLEROSIS OF UNSPECIFIED TYPE OF VESSEL CHALKYITSIK OR GRAFT 08/12/2013 NEETU RESENDIZ JR 272.4 HYPERLIPIDEMIA 08/12/2013 NEETU RESENDIZ JR 300.00 ANXIETY STATE UNSPECIFIED 08/12/2013 NEETU RESENDIZ JR 305.00 NONDEPENDENT ALCOHOL ABUSE UNSPECIFIED DRINKING BEHAVIOR 08/12/2013 NEETU RESENDIZ JR 414.00 CORONARY ATHEROSCLEROSIS OF UNSPECIFIED TYPE OF VESSEL CHALKYITSIK OR GRAFT 08/13/2013 BOWMAN DO SAVANNA K 305.1 NONDEPENDENT TOBACCO USE DISORDER 08/13/2013 COLBY ZAPIEN SAVANNA K V17.3 FAMILY HISTORY OF ISCHEMIC HEART DISEASE 08/13/2013 BOWMAN DO, SAVANNA K 305.1 NONDEPENDENT TOBACCO USE DISORDER 08/13/2013 BOWMAN DO, SAVANNA K V17.3 FAMILY HISTORY OF ISCHEMIC HEART DISEASE 08/13/2013 BOWMAN DO, SAVANNA K 305.1 NONDEPENDENT TOBACCO USE DISORDER 08/13/2013 BOWMAN DO, SAVANNA K V17.3 FAMILY HISTORY OF ISCHEMIC HEART DISEASE 08/13/2013 BOWMAN DO, SAVANNA K 305.1 NONDEPENDENT TOBACCO USE DISORDER 08/13/2013 BOWMAN DO, SAVANNA K V17.3 FAMILY HISTORY OF ISCHEMIC HEART DISEASE 08/13/2013 MIGNON DUNCAN APRN 305.1 NONDEPENDENT TOBACCO USE DISORDER 08/13/2013 MIGNON DUNCAN APRN V17.3 FAMILY HISTORY OF ISCHEMIC HEART DISEASE 08/13/2013 RAINE LEVI APRN 305.1 NONDEPENDENT TOBACCO USE DISORDER 08/13/2013 RAINE LEVI APRN L V17.3 FAMILY HISTORY OF ISCHEMIC HEART DISEASE 08/13/2013 BOWMAN DO, SAVANNA K 305.1 NONDEPENDENT TOBACCO USE DISORDER 08/13/2013 COLBY ZAPIEN SAVANNA K V17.3 FAMILY HISTORY OF ISCHEMIC HEART DISEASE 08/13/2013 NEETU RESENDIZ JR 305.1 NONDEPENDENT TOBACCO USE DISORDER 08/13/2013 NEETU RESENDIZ JR V17.3 FAMILY HISTORY OF ISCHEMIC HEART DISEASE 11/23/2013 MORGAN MCKEON Ot 682.2 11/24/2013 DIANA SCOTT DO Ot V58.31 11/27/2013 MIGNON DUNCAN APRN 682.9 CELLULITIS AND ABSCESS OF UNSPECIFIED SITES 11/27/2013 MIGNON DUNCAN APRN V58.31 WOUND DRESSING 11/27/2013 RAINE LEVI APRN 682.9 CELLULITIS AND ABSCESS OF UNSPECIFIED SITES 11/27/2013 RAINE LEVI APRN V58.31 WOUND DRESSING 11/27/2013 SAVANNA BOWMAN DO K 682.9 CELLULITIS AND ABSCESS OF UNSPECIFIED SITES 11/27/2013 DEANDRE BOWMAN DOA K V58.31 WOUND DRESSING 11/27/2013 NEETU RESENDIZ JR 682.9 CELLULITIS AND ABSCESS OF UNSPECIFIED SITES 11/27/2013 NEETU RESENDIZ JR V58.31 WOUND DRESSING 01/06/2014 RAINE LEVI APRN 278.00 OBESITY 01/06/2014 RAINE LEVI APRN 790.29 HYPERGLYCEMIA 01/06/2014 RAINE LEVI APRN L V65.42 TOBACCO COUNSELING 01/06/2014 SAVANNA BOWMAN DO K 278.00 OBESITY 01/06/2014 SAVANNA BOWMAN DO K 790.29 HYPERGLYCEMIA 01/06/2014 SAVANNA BOWMAN DO K V65.42 TOBACCO COUNSELING 01/06/2014 NEETU RESENDIZ JR S 278.00 OBESITY 01/06/2014 NEETU RESENDIZ JR S 790.29 HYPERGLYCEMIA 01/06/2014 NEETU RESENDIZ JR S V65.42 TOBACCO COUNSELING 01/07/2014 SAVANNA BOWMAN DO K 311 MO DEPRESS NOS 01/07/2014 ASTRID HARRIS NEETU S 311 MO DEPRESS NOS 09/04/2018 BRIT CAZARES E11.65 Type 2 diabetes mellitus with hyperglycemia 09/04/2018 BRIT CAZARES F I51.81 Takotsubo syndrome 09/04/2018 BRIT CAZARES F F17.200 Nicotine dependence, unspecified, uncomplicated 09/04/2018 BRIT CAZARES F 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, in remission 11/03/2018 BRIT CAZARES E11.65 Type 2 diabetes mellitus with hyperglycemia 11/03/2018 BRIT CAZARES F 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, in remission 11/03/2018 BRIT CAZARES F17.200 Nicotine dependence, unspecified, uncomplicated 11/03/2018 BRIT CAZARES F I51.81 Takotsubo syndrome 11/03/2018 BRIT CAZARES E78.2 Mixed hyperlipidemia 01/08/2019 BRIT CAZARES E11.65 Type 2 diabetes mellitus with hyperglycemia 02/01/2019 BRIT CAZARES F K08.89 Other specified disorders of teeth and supporting structures 02/01/2019 BRIT CAZARES F E11.65 Type 2 diabetes mellitus with hyperglycemia 02/03/2019 DEWAYNE GERBER, ELIZABET S F F17.210 02/03/2019 DEWAYNE GERBER, ELIZABET S F K04.7 02/03/2019 DEWAYNE GERBER, ELIZABET S F K08.89 02/03/2019 DEWAYNE GERBER, ELIZABET S Other K08.89 K08.89 - Other specified disorders of teeth and supporting structures 02/19/2019 ADEN GERBER, LD Espinoza F R51 02/19/2019 HAYLEE GERBER, BENNY F E11.65 02/19/2019 HAYLEE GERBER, BENNY F F17.210 02/19/2019 HAYLEE GERBER, BENNY F R42 02/19/2019 ADEN GERBER, LD Espinoza Other R51 R51 - Headache 02/19/2019 HAYLEE GEREBR, BENNY Other E11.65 E11.65 - Type 2 diabetes mellitus with hyperglycemia 04/12/2019 SAGEBRIT E11.65 Type 2 diabetes mellitus with hyperglycemia 04/23/2019 Santi GERBER, M C. F E11.65 04/23/2019 Santi GERBER, M C. F E78.00 04/23/2019 Santi GERBER, M C. F E86.0 04/23/2019 Santi GERBER, M C. F E87.6 04/23/2019 Santi GERBER, M C. F F15.10 04/23/2019 Santi GERBER, M C. F F17.210 04/23/2019 Santi GERBER, M C. F I10 04/23/2019 Santi GERBER, M C. F I42.8 04/23/2019 Santi GERBER, M C. F R07.9 04/23/2019 Santi GERBER, M C. F T38.3X6A 04/23/2019 Santi GERBER, M C. F Z59.0 04/23/2019 Santi GERBER, M C. F Z79.4 04/23/2019 Santi GERBER, M C. F Z91.14 04/23/2019 Santi GERBER, M C. Other R73.9 R73.9 - Hyperglycemia, unspecified 04/23/2019 Other R73.9 R73.9 - Hyperglycemia, unspecified 04/24/2019 Santi GERBER, Kerri C. Other R73.9 R73.9 - Hyperglycemia, unspecified 04/24/2019 Santi GERBER, Kerri C. Other R73.9 R73.9 - Hyperglycemia, unspecified 04/24/2019 Santi GERBER, Kerri C. Other R73.9 R73.9 - Hyperglycemia, unspecified 04/25/2019 Santi GERBER, Kerri C. Other E11.65 E11.65 - Type 2 diabetes mellitus with hyperglycemia 04/25/2019 Santi GERBER, M C. Other E86.0 E86.0 - Dehydration 04/25/2019 Long MD, M C. Other F15.10 F15.10 - Other stimulant abuse, uncomplicated 04/25/2019 Kerri Hancock MD. Other R73.9 R73.9 - Hyperglycemia, unspecified 04/25/2019 Kerri Hancock MD. Other Z59.0 Z59.0 - Homelessness 04/25/2019 Kerri Hancock MD. Other Z72.0 Z72.0 - Tobacco use 04/25/2019 Kerri Hancock MD. 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 04/25/2019 Kerri Hancock MD Other E11.65 E11.65 - Type 2 diabetes mellitus with hyperglycemia 04/25/2019 Kerri Hancock MD Other E86.0 E86.0 - Dehydration 04/25/2019 Kerri Hancock MD Other F15.10 F15.10 - Other stimulant abuse, uncomplicated 04/25/2019 Kerri Hancock MD Other R73.9 R73.9 - Hyperglycemia, unspecified 04/25/2019 Kerri Hancock MD Other Z59.0 Z59.0 - Homelessness 04/25/2019 Kerri Hancock MD Other Z72.0 Z72.0 - Tobacco use 04/25/2019 Kerri Hancock MD 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 04/25/2019 Kerri Hancock MD Other E11.65 E11.65 - Type 2 diabetes mellitus with hyperglycemia 04/25/2019 Kerri Hancock MD Other E86.0 E86.0 - Dehydration 04/25/2019 Kerri Hancock MD Other F15.10 F15.10 - Other stimulant abuse, uncomplicated 04/25/2019 Kerri Hancock MD Other R73.9 R73.9 - Hyperglycemia, unspecified 04/25/2019 Kerri Hancock MD Other Z59.0 Z59.0 - Homelessness 04/25/2019 Kerri Hancock MD Other Z72.0 Z72.0 - Tobacco use 04/25/2019 Kerri Hancock MD 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 04/27/2019 Other R73.9 R73.9 - Hyperglycemia, unspecified 04/27/2019 Other R73.9 R73.9 - Hyperglycemia, unspecified 05/12/2019 Other R73.9 R73.9 - Hyperglycemia, unspecified Procedures Code Description [place] [address] XRAY HIP RIGHT UNILATERAL MIN 2 VIEWS 04/22/2013 36579 ROUTINE VENIPUNCTURE 07/20/2013 05392 TSH 07/20/2013 JULIA BROWN 07/20/2013 20727 CMP 07/21/2013 [id number] GFR CALC (RESULT ONLY) 07/21/2013 87640 URINE DRUG SCREEN (IN-HOUSE) 08/12/2013 69860 ROUTINE VENIPUNCTURE 08/13/2013 30784 LIVER PANEL (LFT) 08/13/2013 02653 CBC 08/13/2013 [id number] GFR CALC (RESULT ONLY) 08/13/2013 27985 CMP 08/13/2013 96468 LIPID PANEL 08/13/2013 87039 TROPONIN, QUANT 08/13/2013 77412 CRP 08/13/2013 22247 ROUTINE VENIPUNCTURE 09/29/2013 84288 TESTOSTERONE TOTAL 10/01/2013 14541 UA LONG DIP 01/06/2014 46362 GLUCOSE FINGER STICK 01/06/2014 07481 A1C (IN-HOUSE) 01/06/2014 Unknown Lian Chester 01/12/2014 75832 ROUTINE VENIPUNCTURE 01/12/2014 02155 CBC 01/12/2014 9971038 GFR CALC (RESULT ONLY) 01/12/2014 19185 CMP 01/12/2014 02494 LIPID PANEL 01/12/2014 86223 TSH 01/12/2014 51135 DRAWING AND HANDLING - VENOUS 09/04/2018 37736 COMPREHENSIVE PANEL 09/04/2018 35442 LIPID PROFILE 09/04/2018 66034 MICROALBUMIN,QUANTITATIV 09/04/2018 72521 CREATININE, URINE 09/04/2018 94018 GLYCOHEMOGLOBIN 09/04/2018 42876 LDL CHOLESTEROL, DIRECT 09/04/2018 13878 CBC/HEMOGRAM WITH 09/04/2018 98803 NEW COMPREHENSIVE 09/04/2018 32896 EST DETAILED 11/03/2018 3046F HBA1C > 9 01/08/2019 19387 DRAWING AND HANDLING - VENOUS 01/08/2019 68873 BASIC METABOLIC PANEL 01/08/2019 11573 GLYCOHEMOGLOBIN 01/08/2019 39746 CBC/HEMOGRAM WITH 01/08/2019 29659 EST DETAILED 01/08/2019 97615 ADMIN, IM OR SUBCS INJECTION 02/01/2019 84921 EST DETAILED 02/01/2019 J1885 TORADOL PER 15MG 02/01/2019 [id number] [facility] DIABETIC SUPLLIES 03/10/2019 SW [facility] 03/10/2019 3046F HBA1C > 9 04/12/2019 87783 DRAWING AND HANDLING - VENOUS 04/12/2019 27658 BASIC METABOLIC PANEL 04/12/2019 64289 URINALYSIS, AUTOMATED 04/12/2019 80561 GLYCOHEMOGLOBIN 04/12/2019 46484 CBC/HEMOGRAM WITH 04/12/2019 01048 EST EXPANDED PROBLEM FOCUSED 04/12/2019 20773 04/23/2019 Results Test Result Range CBC W/ AUTO DIFF - 09/04/18 15:03 WBC 10.02 10E3/uL 4.00-11.00 RBC 5.14 10E6/uL 4.40-5.90 HGB 15.5 g/dL 13.0-18.0 HCT 43.1 % 39.0-54.0 MCV 83.9 fL 80.0-100.0 MCH 30.2 pg 27.0-34.0 MCHC 36.0 g/dL 33.0-37.0 PLT 208 10E3/uL 130-400 LY% 16.2 % 15.0-45.0 MONO% 5.8 % 2.0-10.0 EO% 0.8 % 0.0-7.0 BASO% 0.8 % 0.0-1.0 NE% 76.4 % 40.0-70.0 LY# 1.62 10E3/uL 1.00-4.00 MONO# 0.58 10E3/uL 0.20-0.80 EO# 0.08 10E3/uL 0.00-0.40 BASO# 0.08 10E3/uL 0.00-0.20 NE# 7.66 10E3/uL 2.50-7.50 RDW-CV 12.9 % 11.0-15.0 MPV 13.4 fL 7.4-11.0 CMP, SERUM OR PLASMA - 09/04/18 15:03 GLU 735 mg/dL 70-99 BUN 14 mg/dL 7-18 BUN_CR 11.1 mg/dL 10.0-20.0 CREAT 1.26 mg/dL 0.55-1.30 NA 127 mmoL/L 135-145 K+ 5.3 mmoL/L 3.6-5.0 CL 91 mmoL/L 101-111 CO2 28.1 mEq/L 23.0-29.0 CA++ 9.2 mg/dL 8.5-10.5 ALB 4.0 g/dL 3.5-5.0 ALP 146 U/L 42-121 ALT 31 U/L 10-75 AST 16 Err code 6-Moderately lipemic specimen- ALB U/L 10- 42 TP 8.4 g/dL 6.4-8.2 TB 0.7 mg/dL 0.2-1.2 GLOB 4.4 g/dL 2.4-3.6 A/G RATIO 0.9 g/dL 0.9-1.8 ANGAP 13 mmol/L 8-16 OSMO 282.1 mOsm/kg 270.1-298.0 HEMOGLOBIN A1C, QN, BLOOD - 09/04/18 15:03 HGB A1C 12.9 % 4.6-6.2 LIPID PANEL, SERUM - 09/04/18 15:03 FASTING N NRG CHOL 279 mg/dL 2-200 TRIG 1113 mg/dL 35-160 HDL 23 mg/dL 30-85 LDL Results maybe affected due to elevated TRIG. Direct LDL to follow- ALB mg/dL 0-130 VLDL 223 mg/dL 1-53 MICROALBUMIN:CREATININE RATIO, URINE - 09/04/18 15:03 UALB Result below assay range-cj mg/L 1.30-20.00 UCREAT 14.30 mg/dL NRG A:C Non reportable due to UALB below assay range-cj mg/g 0.0- 29.9 CBC W/ AUTO DIFF - 01/08/19 12:59 WBC 8.05 10E3/UL 4.00-11.00 RBC 5.07 10E6/UL 4.40-5.90 HGB 15.3 G/DL 13.0-18.0 HCT 43.3 % 39.0-54.0 MCV 85.4 FL 80.0-100.0 MCH 30.2 PG 27.0-34.0 MCHC 35.3 G/DL 33.0-37.0 PLT 164 10E3/UL 130-400 LY% 28.6 % 15.0-45.0 MONO% 8.6 % 2.0-10.0 EO% 2.4 % 0.0-7.0 BASO% 1.2 % 0.0-1.0 NE% 59.2 % 40.0-70.0 LY# 2.30 10E3/UL 1.00-4.00 MONO# 0.69 10E3/UL 0.20-0.80 EO# 0.19 10E3/UL 0.00-0.40 BASO# 0.10 10E3/UL 0.00-0.20 NE# 4.77 10E3/UL 2.50-7.50 RDW-CV 13.3 % 11.0-15.0 MPV 12.6 FL 7.4-11.0 BMP, SERUM OR PLASMA - 01/08/19 12:59 GLU 317 MG/DL 70-99 BUN 13 MG/DL 7-18 BUN_CR 14.8 MG/DL 10.0-20.0 CREAT 0.88 MG/DL 0.55-1.30 NA 136 MMOL/L 135-145 K+ 3.9 MMOL/L 3.6-5.0 CL 99 MMOL/L 101-111 CO2 30.3 MEQ/L 23.0-29.0 CA++ 9.0 MG/DL 8.5-10.5 ANGAP 11 MMOL/L 8-16 OSMO 275.2 MOSM/KG 270.1-298.0 HEMOGLOBIN A1C, QN, BLOOD - 01/08/19 12:59 HBA1C (HEMOGLOBIN A1C), BLOOD 12.8 % 4.6-6.2 URINALYSIS, COMPLETE - 04/12/19 16:41 U. COL YELLOW YELLOW U. CLARITY CLEAR CLEAR U. SG 1.020 1.005-1.030 U. PH 7.5 5.0-8.0 U.GLU 2+ NEGATIVE U. BILI NEGATIVE NEGATIVE U. KET NEGATIVE NEGATIVE U. PRO NEGATIVE NEGATIVE U. URO 0.2 E.U./DL E.U./DL 0.2-1.0 U. NITRITE NEGATIVE NEGATIVE U. BLD NEGATIVE NEGATIVE U. SUSY NEGATIVE NEGATIVE CBC W/ AUTO DIFF - 04/12/19 16:41 WBC 8.63 10E3/UL 4.00-11.00 RBC 5.39 10E6/UL 4.40-5.90 HGB 16.2 G/DL 13.0-18.0 HCT 45.7 % 39.0-54.0 MCV 84.8 FL 80.0-100.0 MCH 30.1 PG 27.0-34.0 MCHC 35.4 G/DL 33.0-37.0 PLT 221 10E3/UL 130-400 LY% 25.5 % 15.0-45.0 MONO% 5.8 % 2.0-10.0 EO% 1.5 % 0.0-7.0 BASO% 1.3 % 0.0-1.0 NE% 65.9 % 40.0-70.0 LY# 2.20 10E3/UL 1.00-4.00 MONO# 0.50 10E3/UL 0.20-0.80 EO# 0.13 10E3/UL 0.00-0.40 BASO# 0.11 10E3/UL 0.00-0.20 NE# 5.69 10E3/UL 2.50-7.50 RDW-CV 13.3 % 11.0-15.0 MPV 12.6 FL 7.4-11.0 BMP, SERUM OR PLASMA - 04/12/19 16:41 GLU 345 MG/DL 70-99 BUN 10 MG/DL 7-18 BUN_CR 11.0 MG/DL 10.0-20.0 CREAT 0.91 MG/DL 0.55-1.30 NA 138 MMOL/L 135-145 K+ 5.0 MMOL/L 3.6-5.0 CL 98 MMOL/L 101-111 CO2 31.7 MEQ/L 23.0-29.0 CA++ 9.5 MG/DL 8.5-10.5 ANGAP 13 MMOL/L 8-16 OSMO 279.4 MOSM/KG 270.1-298.0 HEMOGLOBIN A1C, QN, BLOOD - 04/12/19 16:41 HBA1C (HEMOGLOBIN A1C), BLOOD 11.9 % 4.6-6.2 Comprehensive Metabolic Panel - 04/23/19 09:45 OSMO CALCULATED =290.2 270.0-290.0 Sodium SerPl-sCnc =131 135-145 Potassium SerPl-sCnc =4.2 3.6-5.0 Chloride SerPl-sCnc =96 101-111 CO2 SerPl-sCnc =25 21-31 Anion Gap4 SerPl-sCnc =14 8-18 BUN SerPl-mCnc =10 6-20 Creat SerPl-mCnc =0.83 0.50-1.20 Creatinine Clr Calc Pharmacy =[phone] NRG GFR/BSA.pred SerPl NOG-GWN-BiYLzu >=60 >=60 BUN/Creat SerPl =12.0 10.0-20.0 Glucose SerPl-mCnc =612 70-110 Calcium SerPl-mCnc =9.0 8.5-10.5 Bilirub SerPl-mCnc =0.6 0.1-1.2 AST SerPl-cCnc =15 10-42 ALT SerPl w/o P-5'-P-cCnc =19 10-60 ALP SerPl-cCnc =105 42-121 Prot SerPl-mCnc =7.7 6.4-8.2 Albumin SerPl-mCnc =4.5 3.5-5.5 Globulin Ser Calc-mCnc =3.2 2.4-3.6 Albumin/Glob SerPl =1.4 0.9-1.8 Troponin I SerPl-mCnc - 04/23/19 09:45 Troponin I SerPl-mCnc <0.01 0.01-0.04 Hemoglobin A1c/Hemoglobin.total in Blood - 04/23/19 09:45 Est. average glucose Bld gHb Est-mCnc =303 84-140 Hemoglobin A1c/Hemoglobin.total in Blood =12.2 4.8-5.6 UA with screen for culture - 04/23/19 10:35 URINE CULTURE Not Indicated NRG URINE MICROSCOPIC REQUIRED No NRG Color Ur Auto Colorless Yellow Clarity Ur Refract.auto Clear Clear Glucose Ur Strip.auto-mCnc =1000 Negative Bilirub Ur Strip.auto-mCnc Negative Negative Ketones Ur Strip.auto-mCnc =10 Negative Sp Gr Ur Refract.auto =1.035 1.001-1.035 Hgb Ur Strip.auto-mCnc Negative Negative pH Ur Strip.auto =7.0 5.0-9.0 Prot Ur Strip.auto-mCnc Negative <20 Urobilinogen Ur Strip.auto-mCnc 0.2 0.2-1.0 Nitrite Ur Ql Strip Negative Negative Leukocyte esterase Ur-aCnc Negative Negative Glucose SerPl-mCnc - 04/23/19 11:30 Glucose SerPl-mCnc =525 70-110 Basic Metabolic Panel - 04/23/19 13:15 OSMO CALCULATED =278.0 270.0-290.0 Sodium SerPl-sCnc =137 135-145 Potassium SerPl-sCnc =3.3 3.6-5.0 Chloride SerPl-sCnc =104 101-111 CO2 SerPl-sCnc =26 21-31 Anion Gap4 SerPl-sCnc =10 8-18 BUN SerPl-mCnc =7 6-20 Creat SerPl-mCnc =0.69 0.50-1.20 Creatinine Clr Calc Pharmacy =[phone] NRG GFR/BSA.pred SerPl AJH-RIR-MxDUiu >=60 >=60 BUN/Creat SerPl =10.0 10.0-20.0 Glucose SerPl-mCnc =211 70-110 Calcium SerPl-mCnc =8.4 8.5-10.5 Basic Metabolic Panel - 04/24/19 06:57 OSMO CALCULATED =278.3 270.0-290.0 Sodium SerPl-sCnc =138 135-145 Potassium SerPl-sCnc =3.4 3.6-5.0 Chloride SerPl-sCnc =108 101-111 CO2 SerPl-sCnc =24 21-31 Anion Gap4 SerPl-sCnc =9 8-18 BUN SerPl-mCnc =8 6-20 Creat SerPl-mCnc =0.61 0.50-1.20 Creatinine Clr Calc Pharmacy =[phone] NRG GFR/BSA.pred SerPl DKT-OFV-DmALia >=60 >=60 BUN/Creat SerPl =13.0 10.0-20.0 Glucose SerPl-mCnc =175 70-110 Calcium SerPl-mCnc =8.1 8.5-10.5 Complete Blood Count with Diff - 04/24/19 06:58 DIFF TYPE Automated NRG WBC # Bld Auto =7.6 4.0-11.0 RBC # Bld Auto =4.00 4.50-5.90 Hgb Bld-mCnc =12.0 13.5-17.5 Hct VFr Bld Auto =34.8 41.0-53.0 MCV RBC Auto =87.0 80.0-100.0 MCH RBC Qn Auto =30.0 26.0-34.0 MCHC RBC Auto-mCnc =34.5 31.0-37.0 RDW RBC Auto-Rto =12.7 11.0-15.0 Platelet # Bld Auto =136 140-450 PMV Bld Auto =13.9 8.2-12.4 nRBC/100 WBC Bld Auto-Rto =0.0 0.0-0.0 nRBC # Bld Auto =0.0 0.0-0.0 Neutrophils/leuk NFr Bld Auto =62.3 40.0-70.0 Lymphocytes/leuk NFr Bld Auto =28.8 15.0-45.0 Monocytes/leuk NFr Bld Auto =5.8 2.0-10.0 Eosinophil/leuk NFr Bld Auto =2.0 0.0-6.0 Basophils/leuk NFr Bld Auto =0.7 0.0-1.0 Imm Granulocytes/leuk NFr Bld Auto =0.4 0.0-0.0 Neutrophils # Bld Auto =4.7 2.5-7.5 Lymphocytes # Bld Auto =2.2 1.0-4.0 Monocytes # Bld Auto =0.4 0.2-0.8 Eosinophil # Bld Auto =0.2 0.0-0.4 Basophils # Bld Auto =0.1 0.0-0.1 Imm Granulocytes # Bld Auto =0.0 0.0-0.0 Comprehensive Metabolic Panel - 04/25/19 07:26 OSMO CALCULATED =274.4 270.0-290.0 Sodium SerPl-sCnc =138 135-145 Potassium SerPl-sCnc =3.8 3.6-5.0 Chloride SerPl-sCnc =102 101-111 CO2 SerPl-sCnc =28 21-31 Anion Gap4 SerPl-sCnc =12 8-18 BUN SerPl-mCnc =9 6-20 Creat SerPl-mCnc =0.66 0.50-1.20 Creatinine Clr Calc Pharmacy =171.0164 NRG GFR/BSA.pred SerPl WXA-DNW-GqXFij >=60 >=60 BUN/Creat SerPl =14.0 10.0-20.0 Glucose SerPl-mCnc =99 70-110 Calcium SerPl-mCnc =8.6 8.5-10.5 Bilirub SerPl-mCnc =0.6 0.1-1.2 AST SerPl-cCnc =15 10-42 ALT SerPl w/o P-5'-P-cCnc =14 10-60 ALP SerPl-cCnc =64 42-121 Prot SerPl-mCnc =6.2 6.4-8.2 Albumin SerPl-mCnc =3.5 3.5-5.5 Globulin Ser Calc-mCnc =2.7 2.4-3.6 Albumin/Glob SerPl =1.3 0.9-1.8 Capillary blood glucose measurement by glucometer (mass/volume) - 06/03/19 16:42 Capillary blood glucose measurement by glucometer (mass/volume) > mg/dL 70-110 Complete blood count (CBC) with automated white blood cell (WBC) differential - 06/03/19 16:45 Blood leukocytes automated count (number/volume) 8.7 10*3/uL 4.3-11.0 Blood erythrocytes automated count (number/volume) 5.64 10*6/uL 4.35-5.85 Venous blood hemoglobin measurement (mass/volume) 16.8 g/dL 13.3-17.7 Blood hematocrit (volume fraction) 47 % 40-54 Automated erythrocyte mean corpuscular volume 83 [foz_us] 80-99 Automated erythrocyte mean corpuscular hemoglobin (mass per erythrocyte) 30 pg 25-34 Automated erythrocyte mean corpuscular hemoglobin concentration measurement (mass/volume) 36 g/dL 32-36 Automated erythrocyte distribution width ratio 12.9 % 10.0- 14.5 Automated blood platelet count (count/volume) 221 10*3/uL 130-400 Automated blood platelet mean volume measurement 13.9 [foz_us] 7.4-10.4 Automated blood neutrophils/100 leukocytes 78 % 42-75 Automated blood lymphocytes/100 leukocytes 15 % 12-44 Blood monocytes/100 leukocytes 5 % 0-12 Automated blood eosinophils/100 leukocytes 1 % 0-10 Automated blood basophils/100 leukocytes 1 % 0-10 Blood neutrophils automated count (number/volume) 6.8 10*3 1.8-7.8 Blood lymphocytes automated count (number/volume) 1.3 10*3 1.0-4.0 Blood monocytes automated count (number/volume) 0.5 10*3 0.0- 1.0 Automated eosinophil count 0.1 10*3/uL 0.0-0.3 Automated blood basophil count (count/volume) 0.1 10*3/uL 0.0-0.1 Comprehensive metabolic panel - 06/03/19 16:45 Serum or plasma sodium measurement (moles/volume) 119 mmol/L 135-145 Serum or plasma potassium measurement (moles/volume) 4.6 mmol/L 3.6-5.0 Serum or plasma chloride measurement (moles/volume) 81 mmol/L 98-107 Carbon dioxide 24 mmol/L 21-32 Serum or plasma anion gap determination (moles/volume) 14 mmol/L 5-14 Serum or plasma urea nitrogen measurement (mass/volume) 12 mg/dL 7-18 Serum or plasma creatinine measurement (mass/volume) 1.64 mg/dL 0.60-1.30 Serum or plasma urea nitrogen/creatinine mass ratio 7 NRG Serum or plasma creatinine measurement with calculation of estimated glomerular filtration rate 48 NRG Serum or plasma glucose measurement (mass/volume) 1112 mg/dL 70-105 Serum or plasma calcium measurement (mass/volume) 9.9 mg/dL 8.5-10.1 Serum or plasma total bilirubin measurement (mass/volume) 0.8 mg/dL 0.1-1.0 Serum or plasma alkaline phosphatase measurement (enzymatic activity/volume) 128 U/L 40-136 Serum or plasma aspartate aminotransferase measurement (enzymatic activity/volume) 15 U/L 5-34 Serum or plasma alanine aminotransferase measurement (enzymatic activity/volume) 25 U/L 0-55 Serum or plasma protein measurement (mass/volume) 8.2 g/dL 6.4-8.2 Serum or plasma albumin measurement (mass/volume) 4.7 g/dL 3.2-4.5 Capillary blood glucose measurement by glucometer (mass/volume) - 06/03/19 17:34 Capillary blood glucose measurement by glucometer (mass/volume) > mg/dL 70-110 Automated blood complete blood count (hemogram) panel - 06/03/19 19:27 Blood leukocytes automated count (number/volume) 8.2 10*3/uL 4.3-11.0 Blood erythrocytes automated count (number/volume) 5.51 10*6/uL 4.35-5.85 Venous blood hemoglobin measurement (mass/volume) 16.3 g/dL 13.3-17.7 Blood hematocrit (volume fraction) 44 % 40-54 Automated erythrocyte mean corpuscular volume 80 [foz_us] 80-99 Automated erythrocyte mean corpuscular hemoglobin (mass per erythrocyte) 30 pg 25-34 Automated erythrocyte mean corpuscular hemoglobin concentration measurement (mass/volume) 37 g/dL 32-36 Automated erythrocyte distribution width ratio 12.6 % 10.0- 14.5 Automated blood platelet count (count/volume) 195 10*3/uL 130-400 Automated blood platelet mean volume measurement 13.5 [foz_us] 7.4-10.4 Serum or plasma lithium measurement (moles/volume) - 06/03/19 19:27 BNP PT 10.7 pg/mL <100.0 Beta-hydroxybutyric acid measurement - 06/03/19 19:27 Beta-hydroxybutyric acid measurement 0.58 mmol/L 0.00-0.27 Encounters ACCT No. Visit Date/Time Discharge Status Pt. Type Provider Facility Loc./Unit Complaint [id number] 04/12/2019 15:47:00 04/12/2019 23:59:59 [facility] Outpatient [facility] [id number] 03/10/2019 13:49:00 03/10/2019 23:59:59 [facility] Outpatient [facility] [id number] 02/01/2019 13:10:00 02/01/2019 23:59:59 [facility] Outpatient [facility] [id number] 01/08/2019 12:37:00 01/08/2019 23:59:59 [facility] Outpatient [facility] [id number] 11/03/2018 15:26:00 11/03/2018 23:59:59 [facility] Outpatient [facility] [id number] 09/04/2018 13:51:00 09/04/2018 23:59:59 [facility] Outpatient [facility] [id number] 03/21/2019 08:31:00 Document Registration [id number] 02/19/2019 22:50:00 02/19/2019 23:59:59 CLS Preadmit HAYLEE GERBER, [facility] 01.ED [id number] 01/12/2014 08:17:00 01/12/2014 23:59:59 CLS Outpatient SAVANNA BOWMAN DO [id number] 01/07/2014 12:59:00 01/07/2014 23:59:59 CLS Outpatient NEETU RESENDIZ JR [id number] 01/06/2014 10:03:00 01/06/2014 23:59:59 CLS Outpatient RAINE LEVI APRN Michael [id number] 11/27/2013 13:06:00 11/27/2013 23:59:59 CLS Outpatient MIGNON DUNCAN APRN [id number] 10/07/2013 10:19:00 10/07/2013 23:59:59 CLS Outpatient SAVANNA BOWMAN DO [id number] 09/29/2013 12:19:00 09/29/2013 23:59:59 CLS Outpatient SAVANNA BOWMAN DO [place] [id number] 09/09/2013 16:15:00 09/09/2013 23:59:59 CLS Outpatient SAVANNA BOWMAN DO [id number] 08/13/2013 07:57:00 08/13/2013 23:59:59 CLS Outpatient SAVANNA BOWMAN DO [place] [id number] 07/20/2013 16:14:00 07/20/2013 23:59:59 CLS Outpatient SAVANNA BOWMAN DO [id number] 04/22/2013 12:45:00 Document Registration [id number] 02/19/2019 13:06:00 02/19/2019 23:59:59 CLS Preadmit [facility] 01.ED [id number] 02/03/2019 07:21:00 02/03/2019 23:59:59 CLS Preadmit [facility] 01.ED [id number] 04/23/2019 10:41:00 04/25/2019 12:49:00 DIS Inpatient Kerri Hancock MD [facility] 01.4MED W [id number] 02/19/2019 22:50:00 02/19/2019 23:01:00 DIS Emergency HAYLEE GERBER, [facility] 01.ED [id number] 02/19/2019 13:06:00 02/19/2019 13:16:00 DIS Emergency ADEN GERBER, LD Espinoaz [facility] 01.ED [id number] 02/03/2019 07:21:00 02/03/2019 08:09:00 DIS Emergency DEWAYNE GERBER, ELIZABET Gooden [facility] 01.ED [id number] 11/20/2018 10:00:00 11/20/2018 23:59:59 CLS Preadmit BRIT CAZARES PA-C [facility] 01.NICL [id number] 04/23/2019 10:41:00 Document Registration [id number] 11/24/2013 12:07:00 11/24/2013 13:06:00 DIS Emergency DIANA SCOTT DO Via [facility] ER [id number] 11/23/2013 13:21:00 11/23/2013 15:30:00 DIS Emergency MORGAN MCKEON Via [facility] ER [id number] 07/29/2013 11:45:00 07/30/2013 13:25:00 DIS Outpatient MARCELA GERBER, REGINALD Rowland Via [facility] CATH [id number] 06/03/2019 16:50:00 Document Registration
--- OUTSIDE RECORDS SUMMARY | 2019-06-04 03:41 | XMS REPORT | Continuity of Care Document ---
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00 NONDEPENDENT ALCOHOL ABUSE UNSPECIFIED DRINKING BEHAVIOR 08/12/2013 BOWMAN DO, SAVANNA K 414.00 CORONARY ATHEROSCLEROSIS OF UNSPECIFIED TYPE OF VESSEL [place] OR [place]RAFT 08/12/2013 BOWMAN DO SAVANNA K 272.4 HYPERLIPIDEMIA 08/12/2013 BOWMAN DO, SAVANNA K 300.00 ANXIETY STATE UNSPECIFIED 08/12/2013 BOWMAN DO, SAVANNA K 305.00 NONDEPENDENT ALCOHOL ABUSE UNSPECIFIED DRINKING BEHAVIOR 08/12/2013 BOWMAN DO SAVANNA K 414.00 CORONARY ATHEROSCLEROSIS OF UNSPECIFIED TYPE OF VESSEL [place] OR [place]RAFT 08/12/2013 [place] GUEST SERVICE REPRESENTATIVEMIGNON T 272.4 HYPERLIPIDEMIA 08/12/2013 [place] GUEST SERVICE REPRESENTATIVE MIGNON T 300.00 ANXIETY STATE UNSPECIFIED 08/12/2013 [place] GUEST SERVICE REPRESENTATIVE MIGNON T 305.00 NONDEPENDENT ALCOHOL ABUSE UNSPECIFIED DRINKING BEHAVIOR 08/12/2013 [place] GUEST SERVICE REPRESENTATIVEMIGNON Manriquez T 414.00 CORONARY ATHEROSCLEROSIS OF UNSPECIFIED TYPE OF VESSEL [place] OR [place]RAFT 08/12/2013 EATRAINE ELLIS APRN L 272.4 HYPERLIPIDEMIA 08/12/2013 EATRHONDA GUEST SERVICE REPRESENTATIVEMELISSA ManriquezSON L 300.00 ANXIETY STATE UNSPECIFIED 08/12/2013 EATON GUEST SERVICE REPRESENTATIVE RAINE L 305.00 NONDEPENDENT ALCOHOL ABUSE UNSPECIFIED DRINKING BEHAVIOR 08/12/2013 EATON GUEST SERVICE REPRESENTATIVEMELISSA ManriquezSON L 414.00 CORONARY ATHEROSCLEROSIS OF UNSPECIFIED TYPE OF VESSEL [place] OR [place]FT 08/12/2013 BOWMAN DO SAVANNA K 272.4 HYPERLIPIDEMIA 08/12/2013 BOWMAN DO SAVANNA K 300.00 ANXIETY STATE UNSPECIFIED 08/12/2013 BOWMAN DO SAVANNA K 305.00 NONDEPENDENT ALCOHOL ABUSE UNSPECIFIED DRINKING BEHAVIOR 08/12/2013 COLBY ZAPIEN SAVANNA K 414.00 CORONARY ATHEROSCLEROSIS OF UNSPECIFIED TYPE OF VESSEL [place] OR [place]RAFT 08/12/2013 NEETU RESENDIZ JR 272.4 HYPERLIPIDEMIA 08/12/2013 NEETU RESENDIZ JR 300.00 ANXIETY STATE UNSPECIFIED 08/12/2013 NEETU RESENDIZ JR 305.00 NONDEPENDENT ALCOHOL ABUSE UNSPECIFIED DRINKING BEHAVIOR 08/12/2013 NEETU RESENDIZ JR 414.00 CORONARY ATHEROSCLEROSIS OF UNSPECIFIED TYPE OF VESSEL [place] OR GRAFT 08/13/2013 BOWMAN DO SAVANNA K [...] CELLULITIS AND ABSCESS OF UNSPECIFIED SITES 11/27/2013 MINGON DUNCAN APRN V58.31 WOUND DRESSING 11/27/2013 RAINE LEVI APRN 682.9 CELLULITIS AND ABSCESS OF UNSPECIFIED SITES 11/27/2013 RANIE LEVI APRN V58.31 WOUND DRESSING 11/27/2013 SAVANNA [...] Other R51 R51 - Headache 02/19/2019 HAYLEE GERBER, BENNY Other E11.65 E11.65 - Type 2 [...] Kerri Hancock MD. 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 04/27/2019 Other R73.9 R73.9 - Hyperglycemia, unspecified 04/27/2019 Other R73.9 R73.9 - Hyperglycemia, unspecified 05/12/2019 Other R73.9 R73.9 - Hyperglycemia, unspecified Procedures Code Description [place] [address] XRAY HIP RIGHT UNILATERAL MIN 2 VIEWS 04/22/2013 86346 ROUTINE VENIPUNCTURE 07/20/2013 59979 TSH 07/20/2013 JULIA BROWN 07/20/2013 24004 CMP 07/21/2013 6749872 GFR CALC (RESULT ONLY) 07/21/2013 26505 URINE DRUG SCREEN (IN-HOUSE) 08/12/2013 41499 ROUTINE VENIPUNCTURE 08/13/2013 88569 LIVER PANEL (LFT) 08/13/2013 87784 CBC 08/13/2013 6071156 GFR CALC (RESULT ONLY) 08/13/2013 28185 CMP 08/13/2013 92769 LIPID PANEL 08/13/2013 09619 TROPONIN, QUANT 08/13/2013 16377 CRP 08/13/2013 01113 ROUTINE VENIPUNCTURE 09/29/2013 35894 TESTOSTERONE TOTAL 10/01/2013 64772 UA LONG DIP 01/06/2014 96446 GLUCOSE FINGER STICK 01/06/2014 72441 A1C (IN-HOUSE) 01/06/2014 Unknown Lian Chester 01/12/2014 14653 ROUTINE VENIPUNCTURE 01/12/2014 71064 CBC 01/12/2014 0428402 GFR CALC (RESULT ONLY) 01/12/2014 68525 CMP 01/12/2014 71243 LIPID PANEL 01/12/2014 38270 TSH 01/12/2014 95623 DRAWING AND HANDLING - VENOUS 09/04/2018 71409 COMPREHENSIVE PANEL 09/04/2018 93589 LIPID PROFILE 09/04/2018 56925 MICROALBUMIN,QUANTITATIV 09/04/2018 92406 CREATININE, URINE 09/04/2018 67431 GLYCOHEMOGLOBIN 09/04/2018 49301 LDL CHOLESTEROL, DIRECT 09/04/2018 28540 CBC/HEMOGRAM WITH 09/04/2018 36699 NEW COMPREHENSIVE 09/04/2018 42838 EST DETAILED 11/03/2018 3046F HBA1C > 9 01/08/2019 20321 DRAWING AND HANDLING - VENOUS 01/08/2019 22368 BASIC METABOLIC PANEL 01/08/2019 39298 GLYCOHEMOGLOBIN 01/08/2019 06474 CBC/HEMOGRAM WITH 01/08/2019 65488 EST DETAILED 01/08/2019 94486 ADMIN, IM OR SUBCS INJECTION 02/01/2019 77017 EST DETAILED 02/01/2019 J1885 TORADOL PER 15MG 02/01/2019 SFHCDMSUPP [facility] DIABETIC SUPLLIES 03/10/2019 [facility] 03/10/2019 3046F HBA1C > 9 04/12/2019 53676 DRAWING AND HANDLING - VENOUS 04/12/2019 61991 BASIC METABOLIC PANEL 04/12/2019 18707 URINALYSIS, AUTOMATED 04/12/2019 54861 GLYCOHEMOGLOBIN 04/12/2019 15670 CBC/HEMOGRAM WITH 04/12/2019 74524 EST EXPANDED PROBLEM FOCUSED 04/12/2019 88282 04/23/2019 Results Test Result Range CBC W/ [...] Clr Calc Pharmacy =127.1988 NRG GFR/BSA.pred SerPl GKE-ELJ-IbDSqd >=60 >=60 BUN/Creat SerPl =12.0 10.0-20.0 Glucose [...] Clr Calc Pharmacy =153.0072 NRG GFR/BSA.pred SerPl FUV-JXI-XfRWvz >=60 >=60 BUN/Creat SerPl =10.0 10.0-20.0 Glucose SerPl-mCnc =211 70-110 Calcium SerPl-mCnc =8.4 8.5-10.5 Basic Metabolic Panel - 04/24/19 06:57 OSMO CALCULATED =278.3 270.0-290.0 Sodium SerPl-sCnc =138 135-145 Potassium SerPl-sCnc =3.4 3.6-5.0 Chloride SerPl-sCnc =108 101-111 CO2 SerPl-sCnc =24 21-31 Anion Gap4 SerPl-sCnc =9 8-18 BUN SerPl-mCnc =8 6-20 Creat SerPl-mCnc =0.61 0.50-1.20 Creatinine Clr Calc Pharmacy =187.6138 NRG GFR/BSA.pred SerPl VIB-LUX-EpWAde >=60 >=60 BUN/Creat SerPl =13.0 10.0-20.0 Glucose [...] Clr Calc Pharmacy =171.0164 NRG GFR/BSA.pred SerPl PMB-ZFL-NqMTvh >=60 >=60 BUN/Creat SerPl =14.0 10.0-20.0 Glucose [...] Status Pt. Type Provider Facility Loc./Unit Complaint [id number] 04/12/2019 15:47:00 04/12/2019 23:59:59 [facility] Outpatient [facility] [id number] 03/10/2019 13:49:00 03/10/2019 23:59:59 [facility] Outpatient [facility] [id number] 02/01/2019 13:10:00 02/01/2019 23:59:59 [facility] Outpatient [facility] [id number] 01/08/2019 12:37:00 01/08/2019 23:59:59 [facility] Outpatient [facility] [id number] 11/03/2018 15:26:00 11/03/2018 23:59:59 [facility] Outpatient [facility] [id number] 09/04/2018 13:51:00 09/04/2018 23:59:59 [facility] Outpatient [facility] [id number] 03/21/2019 08:31:00 Document Registration [id number] 02/19/2019 22:50:00 02/19/2019 23:59:59 CLS Preadmit HAYLEE GERBER, [facility] 01.ED [id number] 01/12/2014 08:17:00 01/12/2014 23:59:59 CLS Outpatient SAVANNA BOWMAN DO [id number] 01/07/2014 12:59:00 01/07/2014 23:59:59 CLS Outpatient NEETU RESENDIZ JR [id number] 01/06/2014 10:03:00 01/06/2014 23:59:59 CLS Outpatient RAINE LEVI APRN Michael [id number] 11/27/2013 13:06:00 11/27/2013 23:59:59 CLS Outpatient MIGNON DUNCAN APRN [id number] 10/07/2013 10:19:00 10/07/2013 23:59:59 CLS Outpatient SAVANNA BOWMAN DO [id number] 09/29/2013 12:19:00 09/29/2013 23:59:59 CLS Outpatient SAVANNA BOWMAN DO [place] [id number] 09/09/2013 16:15:00 09/09/2013 23:59:59 CLS Outpatient SAVANAN BOWMAN DO [id number] 08/13/2013 07:57:00 08/13/2013 23:59:59 CLS Outpatient SAVANNA BOWMAN DO [place] [id number] 07/20/2013 16:14:00 07/20/2013 23:59:59 CLS Outpatient SAVANNA BOWMAN DO [id number] 04/22/2013 12:45:00 Document Registration [id number] 02/19/2019 13:06:00 02/19/2019 23:59:59 CLS Preadmit [facility] 01.ED [id number] 02/03/2019 07:21:00 02/03/2019 23:59:59 CLS Preadmit [facility] 01.ED [id number] 04/23/2019 10:41:00 04/25/2019 12:49:00 DIS Inpatient Kerri Hancock MD [facility] 01.4MED W [id number] 02/19/2019 22:50:00 02/19/2019 23:01:00 DIS Emergency HAYLEE GERBER, [facility] 01.ED [id number] 02/19/2019 13:06:00 02/19/2019 13:16:00 DIS Emergency ADEN GERBER, LD Espinoza [facility] 01.ED [id number] 02/03/2019 07:21:00 02/03/2019 08:09:00 DIS Emergency DEWAYNE GERBER, ELIZABET Gooden [facility] 01.ED [id number] 11/20/2018 10:00:00 11/20/2018 23:59:59 CLS Preadmit BRIT CAZARES PA-C [facility] 01.NICL [id number] 04/23/2019 10:41:00 Document Registration [id number] 11/24/2013 12:07:00 11/24/2013 13:06:00 DIS Emergency DIANA SCOTT DO Via [facility] ER [id number] 11/23/2013 13:21:00 11/23/2013 15:30:00 DIS Emergency MORGAN MCKEON [facility] ER [id number] 07/29/2013 11:45:00 07/30/2013 13:25:00 DIS Outpatient MARCELA GERBER, REGINALD Rowland Via [facility] CATH [id number] 06/03/2019 16:50:00 Document Registration
== END 2019-06-03 20:15 | disposition left against medical advice (07) | DRG 639 ==
LOC: EDUNIT# 15:58 → ER 15:59 → ICU 17:45
PROVIDERS: ADMIT Family Medicine; ATTEND Family Medicine
DX: E11.10 Type 2 diabetes mellitus with ketoacidosis without coma (principal); F17.200 Nicotine dependence, unspecified, uncomplicated; Z59.0 Homelessness
CPT/HCPCS: 36415; 80053; 82010; 82962; 83880; 85025; 85027; 87081

== ENCOUNTER 2019-06-28 14:39 | Inpatient (IN) | payer SELFPAY ==
[~2019-06-28] VITALS: Ht 193 cm; Wt 63.5 kg
[2019-06-28] VITALS (7 sets, daily range): BP systolic 94–109; BP diastolic 63–72
[2019-06-28] MEDS ORDERED: inSUlin (REGULAR) HUMAN 1 UNIT/0.01 ML (CHARGE PER UNIT) IV ONE (14:45)
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
[2019-06-28 15:00] LABS: BASOPHILS # (AUTO) 0.1 10^3/uL (0.0-0.1); BASOPHILS % (AUTO) 1 % (0-10); EOSINOPHILS # (AUTO) 0.1 10^3/uL (0.0-0.3); EOSINOPHILS % (AUTO) 1 % (0-10); HEMATOCRIT 39 % (40-54); HEMOGLOBIN 13.1 G/DL (13.3-17.7); LYMPHOCYTES % (AUTO) 19 % (12-44); MEAN CORPUSCULAR HEMOGLOBIN 30 PG (25-34); MEAN CORPUSCULAR HGB CONC 34 G/DL (32-36); MEAN CORPUSCULAR VOLUME 88 FL (80-99); MEAN PLATELET VOLUME 13.4 FL (7.4-10.4); MONOCYTES # (AUTO) 0.3 X 10^3 (0.0-1.0); MONOCYTES % (AUTO) 6 % (0-12); NEUTROPHILS # (AUTO) 3.8 X 10^3 (1.8-7.8); NEUTROPHILS % (AUTO) 73 % (42-75); PLATELET COUNT 167 10^3/uL (130-400); RED CELL DISTRIBUTION WIDTH 13.3 % (10.0-14.5); WHITE BLOOD COUNT 5.1 10^3/uL (4.3-11.0)
[2019-06-28 15:07] LABS: BILIRUBIN,URINE NEGATIVE (NEGATIVE); CLARITY,URINE CLEAR; COLOR,URINE YELLOW; GLUCOSE, URINE (UA) 4+ (NEGATIVE); KETONES,URINE 2+ (NEGATIVE); LEUKOCYTE ESTERASE ,URINE NEGATIVE (NEGATIVE); NITRITE,URINE NEGATIVE (NEGATIVE); PH,URINE 6.5 (5-9); PROTEIN,URINE NEGATIVE (NEGATIVE); UROBILINOGEN,URINE NORMAL (NORMAL)
[2019-06-28] MEDS: NS IV 1000 ML 1,000 ML IV SCH ×2 (15:23→15:26)
[2019-06-28 15:24] LABS: BACTERIA,URINE NEGATIVE /HPF
--- NOTE | 2019-06-28 15:26 | NUR ---
PT REFUSED ABG. P AIME [facility] NOTIFIED. NO NEW ORDERS.
[2019-06-28 15:27] LABS: AMPHETAMINE SCREEN, URINE POSITIVE (NEGATIVE); BARBITURATE SCREEN URINE NEGATIVE (NEGATIVE); BENZODIAZEPINES SCREEN URINE NEGATIVE (NEGATIVE); CANNABINOID SCREEN, URINE NEGATIVE (NEGATIVE); COCAINE SCREEN URINE NEGATIVE (NEGATIVE); METHADONE STAT NEGATIVE (NEGATIVE); METHAMPHETAMINE SCREEN URINE S POSITIVE (NEGATIVE); OPIATE SCREEN URINE NEGATIVE (NEGATIVE); OXYCODONE STAT NEGATIVE (NEGATIVE); PROPOXYPHENE STAT NEGATIVE (NEGATIVE); TRICYCLIC ANTIDEPRESSANTS SCRE NEGATIVE (NEGATIVE)
[2019-06-28 15:28] LABS: ALBUMIN 3.8 GM/DL (3.2-4.5); BILIRUBIN,TOTAL 0.6 MG/DL (0.1-1.0); CALCIUM 8.5 MG/DL (8.5-10.1); CREATININE SERUM 1.53 MG/DL (0.60-1.30); POTASSIUM 5.1 MMOL/L (3.6-5.0); TOTAL PROTEIN 6.2 GM/DL (6.4-8.2)
[2019-06-28] MEDS ORDERED: inSUlin REGULAR TPN/DRIP ONLY 250 UNITS in NORMAL SALINE 250 ML IV SCH (16:00)
[2019-06-28] MEDS ORDERED: NS W/KCL 40 MEQ/L 0 ML IV ONE (17:05)
[2019-06-28] MEDS ORDERED: LORazepam 1 MG (ATIVAN) TAB ONE (17:23)
[2019-06-28] MEDS ORDERED: LORazepam 0.5 MG (ATIVAN) TABLET PO PRN (17:35)
[2019-06-28 18:35] LABS: ALANINE AMINOTRANSFERASE 21 U/L (0-55); ALBUMIN 3.8 GM/DL (3.2-4.5); ALKALINE PHOSPHATASE 100 U/L (40-136); BILIRUBIN,TOTAL 0.4 MG/DL (0.1-1.0); CALCIUM 8.6 MG/DL (8.5-10.1); CARBON DIOXIDE 24 MMOL/L (21-32); CHLORIDE 97 MMOL/L (98-107); GLUCOSE 277 MG/DL (70-105); POTASSIUM 3.6 MMOL/L (3.6-5.0); SODIUM 131 MMOL/L (135-145); TOTAL PROTEIN 6.3 GM/DL (6.4-8.2)
[2019-06-28] MEDS: NS W/KCL 20 MEQ/L 1,000 ML IV SCH ×2 (18:48→22:15)
[2019-06-28 19:31] LABS: BUN/CREATININE RATIO 12; CREATININE SERUM 0.81 MG/DL (0.60-1.30); GFR ESTIMATED > 60
[2019-06-28] MEDS ORDERED: ONDANSETRON 4 MG/2 ML (SDV) Z0FRAN IV PRN (21:30)
[2019-06-28] MEDS ORDERED: REGULAR inSUlin DRIP 250 UNITS/NS 250 ML IV SCH ×2 (21:30)
[2019-06-28] MEDS: NS W/KCL 40 MEQ/L 1,000 ML IV SCH (22:15)
[2019-06-28] MEDS: D5 1/2 NS W/KCL 40 MEQ/L 1,000 ML IV SCH (22:15)
[2019-06-28] MEDS: DEXTROSE 10% IV SOLUTION 1,000 ML IV SCH (22:16)
[2019-06-29] VITALS (18 sets, daily range): BP systolic 81–111; BP diastolic 50–79
[2019-06-29] MEDS: NS W/KCL 40 MEQ/L 1,000 ML IV SCH ×4 (01:44→14:11)
[2019-06-29] MEDS: D5 1/2 NS W/KCL 40 MEQ/L 1,000 ML IV SCH ×3 (03:15→12:48)
[2019-06-29 03:32] LABS: BASOPHILS # (AUTO) 0.1 10^3/uL (0.0-0.1); BASOPHILS % (AUTO) 1 % (0-10); EOSINOPHILS # (AUTO) 0.2 10^3/uL (0.0-0.3); EOSINOPHILS % (AUTO) 3 % (0-10); HEMATOCRIT 35 % (40-54); HEMOGLOBIN 12.7 G/DL (13.3-17.7); LYMPHOCYTES # (AUTO) 3.1 X 10^3 (1.0-4.0); LYMPHOCYTES % (AUTO) 38 % (12-44); MEAN CORPUSCULAR HEMOGLOBIN 30 PG (25-34); MEAN CORPUSCULAR HGB CONC 36 G/DL (32-36); MEAN CORPUSCULAR VOLUME 84 FL (80-99); MEAN PLATELET VOLUME 13.3 FL (7.4-10.4); MONOCYTES # (AUTO) 0.5 X 10^3 (0.0-1.0); MONOCYTES % (AUTO) 7 % (0-12); NEUTROPHILS # (AUTO) 4.2 X 10^3 (1.8-7.8); NEUTROPHILS % (AUTO) 52 % (42-75); PLATELET COUNT 163 10^3/uL (130-400); RED CELL DISTRIBUTION WIDTH 12.8 % (10.0-14.5); WHITE BLOOD COUNT 8.2 10^3/uL (4.3-11.0)
[2019-06-29 03:50] LABS: ALANINE AMINOTRANSFERASE 17 U/L (0-55); ALBUMIN 3.2 GM/DL (3.2-4.5); ALKALINE PHOSPHATASE 76 U/L (40-136); BILIRUBIN,TOTAL 0.2 MG/DL (0.1-1.0); BUN/CREATININE RATIO 13; CALCIUM 8.5 MG/DL (8.5-10.1); CARBON DIOXIDE 24 MMOL/L (21-32); CHLORIDE 105 MMOL/L (98-107); CREATININE SERUM 0.72 MG/DL (0.60-1.30); GFR ESTIMATED > 60; GLUCOSE 140 MG/DL (70-105); MAGNESIUM 1.6 MG/DL (1.6-2.4); PHOSPHORUS 2.7 MG/DL (2.3-4.7); POTASSIUM 3.9 MMOL/L (3.6-5.0); SODIUM 137 MMOL/L (135-145); TOTAL PROTEIN 5.2 GM/DL (6.4-8.2)
[2019-06-29] MEDS: NS W/KCL 20 MEQ/L 1,000 ML IV SCH ×4 (04:07→14:11)
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
[2019-06-29] MEDS ORDERED: KCL 20 MEQ TAB (K-DUR) PO SCH (06:00)
[2019-06-29] MEDS ORDERED: POTASSIUM CL 10MEQ/50ML IVPB 50 ML IV SCH (06:00)
[2019-06-29] MEDS ORDERED: MAGNESIUM 1 GM/100 ML IVPB 100 ML IV SCH (06:00)
[2019-06-29] MEDS: MAGNESIUM 1 GM/100 ML IVPB 100 ML IV SCH ×2 (06:30→07:30)
[2019-06-29] MEDS: inSUlin ASPART (NovoLOG) 1 UNIT/0.01 ML (CHARGE PER UNIT) SC SCH ×2 (06:49→12:54)
--- NOTE | 2019-06-29 09:32 | NUR ---
PATIENT STATES HE WAS TAKING METFORMIN TWICE DAILY HOWEVER HE IS UNSURE IF IT WAS 500MG OR 1000MG. HE ALSO STATES HE WAS USING NOVOLOG 20 UNITS WITH MEALS AND LEVEMIR 50 UNITS AT HS. HE STATES HE HAS NOT FILLED THEM SINCE RELOCATING BACK TO THIS AREA, PREVIOUSLY HE WAS IN [place] AND USES [facility] OR [facility]. I CONTACTED BOTH THOSE PHARMACIES IN [place] AND NEITHER HAD HIM ON FILE AT THEIR LOCATIONS. [id number] WAS ABLE TO LOCATE PROFILES IN A CENTRAL SEARCH HOWEVER NONE OF THOSE PROFILES HAD ANY DISPENSED MEDICATIONS ON THEM. I SET THE PROFILE TO NO MEDS AT THIS TIME. HE ALSO HAS EXPRESSED NEEDING A NEW GLUCOMETER AND SOMETHING THE HELP SETTLE HIS NERVES.
[2019-06-29] MEDS: DEXTROSE 10% IV SOLUTION 1,000 ML IV SCH (12:47)
--- NOTE | 2019-06-29 14:13 | Occ Therapy Progress Note ---
Therapy Progress Note Received order for OT eval and treat. Chart review completed. Attempted therapy at 1350. Pt resting in bed, states he has been getting up in room without assist. RN confirms pt is up ad renuka. Pt states he feels he is at baseline with mobility and ADLs, declined therapy. States he is just wanting to get moved to the 4th floor. Will discontinue OT services at this time. 1, visit BETTY WALDRON OT Jun 29, 2019 14:13
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
[2019-06-29] MEDS ORDERED: inSUlin ASPART (NovoLOG) 1 UNIT/0.01 ML (CHARGE PER UNIT) SC SCH (16:00)
--- NOTE | 2019-06-29 16:40 | NUR ---
PATIENT CALLED BAR ASSISTANT REQUESTING "HELP WITH HIS LINES", THIS RN WENT TO PATIENTS ROOM. PT STATED "I WANT TO GET UP AND WALK AROUND, WILL YOU TAKE THESE WIRES OFF." THIS RN DISCONNECTED PATIENT FROM MONITORING DEVICES WHILE EDUCATING PATIENT THAT HE COULD WALK AROUND THE UNIT BUT COULD NOT LEAVE THE FLOOR. PATIENT STATED "I WANT TO GO SMOKE." THIS RN INFORMED PATIENT THAT WAS AGAINST POLICY AND THAT HE COULD NOT LEAVE THE FLOOR. PATIENT STATED "SO I HAVE TO LEAVE AMA TO GO SMOKE?" THIS RN INFORMED PATIENT THAT ONCE HE LEFT THE FLOOR TO EXIT THE FACILITY THAT WOULD BE CONSIDERED LEAVING AMA. PATIENT STATED "IF I LEAVE AMA WILL I STILL GET HELP WITH MY INSULIN?" THIS RN STATED "I WILL CONTACT DR. MURDOCK TO SEE IF THAT IS STILL AN OPTION." THIS RN CONTACTED DR. MURDOCK. DR. MURDOCK STATED "NO ON HELP WITH INSULIN IF HE LEAVES AMA." THIS RN INFORMED PATIENT OF WHAT DR. MUDROCK STATED. THIS RN REQUESTED THAT PATIENT STAY TO CONTINUE TO RECEIVE CARE. PATIENT STATED "I GUESS I'M LEAVING AMA AND DON'T EVEN SAY YOU WILL GET ME A PATCH, I WANT A CIGARETTE." THIS RN STATED THAT DR. MURDOCK COULD BE CONTACTED TO REQUEST ORDER FOR A NICOTINE PATCH TO HELP RELIEVE SOME OF THE CRAVINGS. PATIENT STATED "NO, I WANT A CIGERETTE." THIS RN AGAIN EDUCATED PATIENT ON THE RISKS OF LEAVING AMA (INCLUDING POSSIBILITY OF GOING INTO DKA AGAIN, RECEIVING INSULIN). PATIENT STATED "JUST TAKE MY IV OUT, I'M LEAVING." THIS RN WENT OVER AMA FORM WITH PATIENT. PATIENT STATED "I'M NOT SIGNING ANYTHING." THIS RN DISCONTINUED 2 IV'S LOCATED IN LEFT FOREARM. WHILE DISCONNECTING PATIENTS IV PATIENT STATED "I WILL JUST GO DOWN AND SMOKE AND THEN COME BACK UP TO MY ROOM." THIS RN INFORMED PATIENT THAT ONCE HE EXITED THE FLOOR HE WOULD BE CONSIDERED LEAVING AMA AND THE ROOM WOULD NO LONGER BE AVAILABLE TO HIM. PATIENT THEN STATED "ALL OF THIS JUST BECAUSE I WANT TO SMOKE. THAT SEEMS LIKE BULLSHIT TO ME. I JUST WANT TO SMOKE. I DON'T WANT TO HURT ANYONE OR ANYTHING. I JUST WANT A CIGERETTE. I AM ABOUT TO RAISE SOME HELL." THIS RN ACKOWLEDGED PATIENTS FRUSTRATION AND REQUESTED THAT PATIENT REMAIN CALM AND AGAIN STAY TO RECEIVE CARE. PATIENT REQUESTED INSULIN TO TAKE WITH HIM. THIS RN EDUCATED PATIENT THAT WAS AGAINST POLICY AND AM NOT ABLE TO SEND MEDICATION. THIS RN EDUCATED PATIENT ON [facility] TO REQUEST PRESCRIPTION FOR INSULIN. BEFORE EXITING PATIENTS ROOM THIS RN AGAIN REQUESTED THAT PATIENT STAY IN FACILITY TO CONTINUE TO RECEIVE TREATMENT AND EXPLAIN THE RISKS OF LEAVING AMA. PATIENT STATED "NO." THIS RN REQUESTED PATIENT SIGN AMA FORM AGAIN, PATIENT STATED AGAIN STATED "NO" AND LEFT ROOM. THIS RN ESCORTED PATIENT TO ELEVATORS WHILE EDUCATING PATIENT ON SIGNS AND SYMPTOMS OF HYPERGLYCEMIA. THIS RN THEN CONTACTED DR. MURDOCK AND CAE ENGINEER TO INFORM THAT PATIENT LEFT AMA AT 1635. DR. MURDOCK ACKNOWLEDGED PATIENT LEAVING AMA.
--- NOTE | 2019-06-30 21:35 | Discharge Summary ---
Diagnosis/Chief Complaint Date of Admission Jun 28, 2019 at 16:08 Date of Discharge Jun 29, 2019 at 16:35 Admission Diagnosis Admission Diagnosis Severe hyperglycemia DMII Methamphetamine abuse Discharge Diagnosis See problem list Problems/Diagnosis: (1) Left against medical advice (2) Hyperglycemia Assessment & Plan: Requiring insulin drip overnight, improved today, able to transition to basal bolus. Will need assistance getting insulin on d/c, and has no place to go on d/c, consult social work. Status: Acute (3) Insulin dependent diabetes mellitus Status: Chronic (4) Methamphetamine abuse Status: Acute Discharge Summary-Simple/Stand Consultations Discharge Physical Examination Allergies: Uncoded Allergies: BEE STING (Allergy, Unknown, 06/03/19) Vitals & I&Os Vital Sign - Last 12Hours Date Time Temp Pulse Resp B/P (MAP) Pulse Ox O2 Delivery O2 Flow Rate FiO2 06/29/19 16:02 68 17 103/78 (86) 98 06/29/19 16:00 Room Air 06/29/19 04:15 97.5 Intake and Output 06/30/19 00:00 Intake Total 700 ml Output Total 550 ml Balance 150 ml Hospital Course See final discharge diagnosis. Discharge Instructions to patient/family Please see electronic discharge instructions given to patient. Discharge Medications Reviewed and agree with Discharge Medication list on patient's Discharge Instruc tion sheet Clinical Quality Measures DVT/VTE Risk/Contraindication: Risk Factor Score Per Nursin RFS Level Per Nursing on Admit: 1=Low/No VTE PPX NAYELY MURDOCK MD Jun 30, 2019 21:35
== END 2019-06-29 16:35 | disposition left against medical advice (07) | DRG 639 ==
LOC: EDUNIT# 14:39 → ER 14:39 → ICU 16:08
PROVIDERS: ADMIT Internal Medicine; ATTEND Family Medicine
DX: E11.65 Type 2 diabetes mellitus with hyperglycemia (principal); F15.10 Other stimulant abuse, uncomplicated; F41.9 Anxiety disorder, unspecified; D64.9 Anemia, unspecified; Z79.4 Long term (current) use of insulin; Z59.0 Homelessness
CPT/HCPCS: 36415; 80053; 80306; 81000; 82010; 82962; 83036; 83735; 84100; 85025; 87081; 96361; 96374; 96376

== ENCOUNTER 2019-07-08 16:15 | Emergency (ER) | payer SELFPAY ==
[~2019-07-08] VITALS: Ht 193 cm; Wt 72.0 kg
--- NOTE | 2019-07-08 16:24 | ED General ---
General Stated Complaint: ABOUT TO PASS OUT Source of Information: Patient Exam Limitations: No Limitations History of Present Illness Date Seen by Provider: Jul 08, 2019 Time Seen by Provider: 16:20 Initial Comments Patient comes in for CC of weakness and dizziness. EMS states that his BG was too high to read. Patient has a hx of DM and previous admissions for DKA Timing/Duration: 24 Hours Associated Systoms: Weakness Allergies and Home Medications Allergies Uncoded Allergies: BEE STING (Allergy, Unknown, 06/03/19) Home Medications No Active Prescriptions or Reported Meds Patient Home Medication List Home Medication List Reviewed: Yes Review of Systems Review of Systems Constitutional: dizziness EENTM: no symptoms reported Respiratory: no symptoms reported Cardiovascular: no symptoms reported Gastrointestinal: no symptoms reported Genitourinary: no symptoms reported Musculoskeletal: no symptoms reported Skin: no symptoms reported Psychiatric/Neurological: No Symptoms Reported Hematologic/Lymphatic: No Symptoms Reported Immunological/Allergic: no symptoms reported Past Nlrcchv-Wcfoyp-Qzavzk Hx Patient Social History Drug of Choice: methamphetamine Recent Hopitalizations: No Immunizations Up To Date Tetanus Booster (TDap): Less than 5yrs PED Vaccines UTD: Yes Date of Influenza Vaccine: Jul 27, 2013 Past Medical History Surgeries: Yes (ear tubes as a child) Respiratory: Yes (pneumonitis as a baby) Cardiac: Yes (elevated troponin with clean cath) Neurological: Yes Reproductive Disorders: No Gastrointestinal: No Musculoskeletal: Yes (fractured elbow) Fractures Endocrine: No Chronic Ear Infection Loss of Vision: Denies Hearing Impairment: Denies Cancer: No Psychosocial: Yes (OCD) Anxiety Integumentary: Yes (history of multiple abscesses of the lower abdomen) Blood Disorders: No Family Medical History No Pertinent Family Hx Physical Exam Vital Signs Vital Signs - First Documented 07/08/19 16:15 Temp 36.9 Pulse 84 Resp 18 B/P (MAP) 119/80 (93) Pulse Ox 98 Capillary Refill : Height, Weight, BMI Height: 6'4.00" Weight: 140lbs. 0.0oz. [id number]; 15.9 BMI Method:Estimated General Appearance: No Apparent Distress, WD/WN Eyes: Bilateral Eye Normal Inspection, Bilateral Eye PERRL HEENT: PERRL/EOMI, TMs Normal Neck: Full Range of Motion, Non Tender, Supple Respiratory: Normal Breath Sounds, No Accessory Muscle Use, No Respiratory Distress Cardiovascular: Regular Rate, Rhythm, Normal Peripheral Pulses Gastrointestinal: Normal Bowel Sounds, Non Tender Extremity: Normal Inspection, Normal Range of Motion, Non Tender Neurologic/Psychiatric: Alert, Oriented x3, No Motor/Sensory Deficits, Normal Mood/Affect Skin: Normal Color, Warm/Dry Progress/Results/Core Measures Suspected Sepsis SIRS Temperature: Pulse: Respiratory Rate: Laboratory Tests 07/08/19 16:20: White Blood Count 9.2 Blood Pressure / Mean: Laboratory Tests 07/08/19 16:20: Creatinine 1.02, Platelet Count 228, Total Bilirubin 0.5 Results/Orders Lab Results Laboratory Tests Test 07/08/19 16:20 07/08/19 16:25 Range/Units White Blood Count 9.2 4.3-11.0 10^3/uL Red Blood Count 4.08 L 4.35-5.85 10^6/uL Hemoglobin 12.5 L 13.3-17.7 G/DL Hematocrit 34 L 40-54 % Mean Corpuscular Volume 82 80-99 FL Mean Corpuscular Hemoglobin 31 25-34 PG Mean Corpuscular Hemoglobin Concent 37 H 32-36 G/DL Red Cell Distribution Width 12.4 10.0-14.5 % Platelet Count 228 130-400 10^3/uL Mean Platelet Volume 12.2 H 7.4-10.4 FL Neutrophils (%) (Auto) 65 42-75 % Lymphocytes (%) (Auto) 25 12-44 % Monocytes (%) (Auto) 8 0-12 % Eosinophils (%) (Auto) 1 0-10 % Basophils (%) (Auto) 1 0-10 % Neutrophils # (Auto) 5.9 1.8-7.8 X 10^3 Lymphocytes # (Auto) 2.3 1.0-4.0 X 10^3 Monocytes # (Auto) 0.7 0.0-1.0 X 10^3 Eosinophils # (Auto) 0.1 0.0-0.3 10^3/uL Basophils # (Auto) 0.1 0.0-0.1 10^3/uL Sodium Level 120 *L 135-145 MMOL/L Potassium Level 4.7 3.6-5.0 MMOL/L Chloride Level 87 L 98-107 MMOL/L Carbon Dioxide Level 26 21-32 MMOL/L Anion Gap 6 5-14 MMOL/L Blood Urea Nitrogen 15 7-18 MG/DL Creatinine 1.02 0.60-1.30 MG/DL Estimat Glomerular Filtration Rate > 60 BUN/Creatinine Ratio 15 Glucose Level 698 *H 70-105 MG/DL Calcium Level 8.3 L 8.5-10.1 MG/DL Corrected Calcium 8.8 8.5-10.1 MG/DL Total Bilirubin 0.5 0.1-1.0 MG/DL Aspartate Amino Transf (AST/SGOT) 17 5-34 U/L Alanine Aminotransferase (ALT/SGPT) 17 0-55 U/L Alkaline Phosphatase 97 40-136 U/L Total Protein 6.4 6.4-8.2 GM/DL Albumin 3.4 3.2-4.5 GM/DL Beta-Hydroxybutyrate (Chem panel) 1.43 H 0.00-0.27 MMOL/L Urine Color YELLOW Urine Clarity CLEAR Urine pH 7 5-9 Urine Specific [place] 1.005 L 1.016-1.022 Urine Protein NEGATIVE NEGATIVE Urine Glucose (UA) 4+ H NEGATIVE Urine Ketones 2+ H NEGATIVE Urine Nitrite NEGATIVE NEGATIVE Urine Bilirubin NEGATIVE NEGATIVE Urine Urobilinogen NORMAL NORMAL MG/DL Urine Leukocyte Esterase NEGATIVE NEGATIVE Urine RBC (Auto) NEGATIVE NEGATIVE Urine RBC NONE /HPF Urine WBC NONE /HPF Urine Squamous Epithelial Cells RARE /HPF Urine Crystals NONE /LPF Urine Bacteria NEGATIVE /HPF Urine Casts NONE /LPF Urine Mucus NEGATIVE /LPF Urine Culture Indicated NO Urine Opiates Screen NEGATIVE NEGATIVE Urine Oxycodone Screen NEGATIVE NEGATIVE Urine Methadone Screen NEGATIVE NEGATIVE Urine Propoxyphene Screen NEGATIVE NEGATIVE Urine Barbiturates Screen NEGATIVE NEGATIVE Ur Tricyclic Antidepressants Screen NEGATIVE NEGATIVE Urine Phencyclidine Screen NEGATIVE NEGATIVE Urine Amphetamines Screen POSITIVE H NEGATIVE Urine Methamphetamines Screen POSITIVE H NEGATIVE Urine Benzodiazepines Screen NEGATIVE NEGATIVE Urine Cocaine Screen NEGATIVE NEGATIVE Urine Cannabinoids Screen NEGATIVE NEGATIVE My Orders Orders - ASHLEY SALOMON SECURITY AND COMPLIANCE PROJECT MANAGER Cbc With Automated Diff (07/08/19 16:25) Comprehensive Metabolic Panel (07/08/19 16:25) Beta Hydroxybutyrate (07/08/19 16:25) Ua Culture If Indicated (07/08/19 16:25) Drug Screen Stat (Urine) (07/08/19 16:25) Lactated Ringers (Lr 1000 Ml Iv Solution (07/08/19 16:30) Ed Iv/Invasive Line Start (07/08/19 16:25) Insulin (Regular) Human (Humulin R (Per (07/08/19 16:30) Medications Given in ED Current Medications Medications Dose Ordered Sig/Linda Route Start Time Stop Time Status Last Admin Dose Admin Insulin Human Regular 10 unit ONCE ONCE IV 07/08/19 16:30 07/08/19 16:31 DC 07/08/19 16:34 10 UNIT Vital Signs/I&O 07/08/19 16:15 Temp 36.9 Pulse 84 Resp 18 B/P (MAP) 119/80 (93) Pulse Ox 98 Capillary Refill : Departure Communication (Admissions) After 2 L of IV fluids and 10 units of regular insulin IV blood sugar is down to 492. Spoke with Dr. Lewis, the patient has no nausea vomiting tachypnea tachycardia or hypotension. His CO2 is normal. We will discharge to home with a dose of long-acting insulin here, she'll arrange for insulin pens were shorter acting insulin to be picked up at the clinic tomorrow. Patient is agreeable with this plan. States he is feeling better. Impression Primary Impression: Insulin dependent diabetes mellitus Disposition: 01 HOME, SELF-CARE Condition: Stable Departure-Patient Inst. Decision time for Depature: 17:37 Referrals: [facility] (PCP/Family) Primary Care Physician Patient Instructions: Diabetes Type 1, Adult (DC) Add. Discharge Instructions: 1. Go directly to [facility] tomorrow to orange picker machine operator the insulin pens 2. Return to ER for any concerns. Scripts No Active Prescriptions or Reported Meds ASHLEY SALOMON APRN Jul 08, 2019 16:24
[2019-07-08] MEDS ORDERED: LACTATED RINGERS 1,000 ML IV SCH (16:30)
[2019-07-08] MEDS ORDERED: inSUlin (REGULAR) HUMAN 1 UNIT/0.01 ML (CHARGE PER UNIT) IV ONE (16:30)
[2019-07-08 16:34] LABS: BASOPHILS # (AUTO) 0.1 10^3/uL (0.0-0.1); BASOPHILS % (AUTO) 1 % (0-10); HEMATOCRIT 34 % (40-54); MEAN CORPUSCULAR HEMOGLOBIN 31 PG (25-34); MEAN CORPUSCULAR HGB CONC 37 G/DL (32-36); MEAN CORPUSCULAR VOLUME 82 FL (80-99); MONOCYTES % (AUTO) 8 % (0-12); NEUTROPHILS % (AUTO) 65 % (42-75); RED CELL DISTRIBUTION WIDTH 12.4 % (10.0-14.5)
[2019-07-08 16:46] LABS: ALANINE AMINOTRANSFERASE 17 U/L (0-55); ALBUMIN 3.4 GM/DL (3.2-4.5); ALKALINE PHOSPHATASE 97 U/L (40-136); BILIRUBIN,TOTAL 0.5 MG/DL (0.1-1.0); BUN/CREATININE RATIO 15; CALCIUM 8.3 MG/DL (8.5-10.1); CARBON DIOXIDE 26 MMOL/L (21-32); CHLORIDE 87 MMOL/L (98-107); CREATININE SERUM 1.02 MG/DL (0.60-1.30); GFR ESTIMATED > 60; POTASSIUM 4.7 MMOL/L (3.6-5.0); TOTAL PROTEIN 6.4 GM/DL (6.4-8.2); WHITE BLOOD COUNT 9.2 10^3/uL (4.3-11.0)
[2019-07-08 16:47] LABS: EOSINOPHILS # (AUTO) 0.1 10^3/uL (0.0-0.3); EOSINOPHILS % (AUTO) 1 % (0-10); HEMOGLOBIN 12.5 G/DL (13.3-17.7); LYMPHOCYTES # (AUTO) 2.3 X 10^3 (1.0-4.0); LYMPHOCYTES % (AUTO) 25 % (12-44); MEAN PLATELET VOLUME 12.2 FL (7.4-10.4); MONOCYTES # (AUTO) 0.7 X 10^3 (0.0-1.0); NEUTROPHILS # (AUTO) 5.9 X 10^3 (1.8-7.8); PLATELET COUNT 228 10^3/uL (130-400)
[2019-07-08 16:50] LABS: AMPHETAMINE SCREEN, URINE POSITIVE (NEGATIVE); BARBITURATE SCREEN URINE NEGATIVE (NEGATIVE); BENZODIAZEPINES SCREEN URINE NEGATIVE (NEGATIVE); CANNABINOID SCREEN, URINE NEGATIVE (NEGATIVE); COCAINE SCREEN URINE NEGATIVE (NEGATIVE); METHADONE STAT NEGATIVE (NEGATIVE); METHAMPHETAMINE SCREEN URINE S POSITIVE (NEGATIVE); OPIATE SCREEN URINE NEGATIVE (NEGATIVE); OXYCODONE STAT NEGATIVE (NEGATIVE); PROPOXYPHENE STAT NEGATIVE (NEGATIVE); TRICYCLIC ANTIDEPRESSANTS SCRE NEGATIVE (NEGATIVE)
[2019-07-08 16:59] LABS: BILIRUBIN,URINE NEGATIVE (NEGATIVE); CLARITY,URINE CLEAR; COLOR,URINE YELLOW; GLUCOSE, URINE (UA) 4+ (NEGATIVE); KETONES,URINE 2+ (NEGATIVE); LEUKOCYTE ESTERASE ,URINE NEGATIVE (NEGATIVE); NITRITE,URINE NEGATIVE (NEGATIVE); PH,URINE 7 (5-9); PROTEIN,URINE NEGATIVE (NEGATIVE); UROBILINOGEN,URINE NORMAL (NORMAL)
[2019-07-08 17:07] LABS: BACTERIA,URINE NEGATIVE /HPF; SQUAMOUS EPITHELIAL CELL,UR RARE /HPF
[2019-07-08 17:12] LABS: GLUCOSE 698 MG/DL (70-105); SODIUM 120 MMOL/L (135-145)
[2019-07-08 17:46] VITALS: BP 131/67
== END 2019-07-08 17:48 | disposition home or self-care (01) ==
LOC: EDUNIT# 16:15 → ER 16:16
DX: E11.9 Type 2 diabetes mellitus without complications (principal); F41.9 Anxiety disorder, unspecified; F42.9 Obsessive-compulsive disorder, unspecified; Z91.030 Bee allergy status; Z79.4 Long term (current) use of insulin
CPT/HCPCS: 36415; 80053; 80306; 81000; 82010; 82962; 85025